=== PATIENT | male | born 1990 | race African-American/Black ===

== ENCOUNTER 2016-06-19 13:39 | Emergency (ER) | payer MEDICAID, SELFPAY ==
[~2016-06-19] VITALS: Ht 165.1 cm; Wt 68.0 kg
[~2016-06-19 13:39] MED LIST: IBUPROFEN600 MG ORAL; NORCO 5-325 TA1 EACH ORAL
[2016-06-19 14:30] VITALS: BP 112/68
[2016-06-19 14:55] VITALS: BP 112/68
[2016-06-19] MEDS ORDERED: CORTISPORIN EAR10 ML LEFT EAR (14:58)
--- NOTE | 2016-06-19 21:23 | Emergency Room Report ---
History of Present Illness General Chief Complaint: Earache Source: Patient Present Illness HPI The patient is a 26 old male presenting with left ear pain which began 3 days prior. The patient states that he was using peroxide to clean out his ears and noticed significant burning to the left ear. The patient describes the pain as a 9/10 dull ache and radiates to the left face. The pain is worse with touch and movement. The patient denies any fever or chills and denies N, V, dizziness , blurred vision Allergies: Coded Allergies: PENICILLINS (Verified Allergy, 07/19/13) Patient History Past Medical History: see triage record Pertinent Family History: none Reviewed Nursing Documentation: PMH: Agreed, PSxH: Agreed Nursing Documentation-PMH Hx Asthma: Yes Review of Systems All Other Systems: negative except mentioned in HPI Physical Exam Vital Signs Date Time Temp Pulse Resp B/P Pulse Ox O2 Delivery O2 Flow Rate FiO2 06/19/16 13:49 98.8 74 16 112/68 99 Room Air Sp02 EP Interpretation: reviewed, normal General Appearance: no apparent distress, alert, GCS 15, non-toxic Head: normocephalic, atraumatic Eyes: bilateral eye PERRL, bilateral eye normal inspection ENT: hearing grossly normal, normal pharynx, no angioedema, normal voice, uvula midline, moist mucus membranes, other - L ear: EAC is erythematous with white DC Neck: full range of motion, supple/symm/no masses Respiratory: chest non-tender, lungs clear, normal breath sounds, speaking full sentences Cardiovascular #1: regular rate, rhythm, no edema Musculoskeletal: back normal, gait/station normal, normal range of motion, non- tender Neurologic: alert, oriented x3, responsive, motor strength/tone normal, sensory intact, speech normal Psychiatric: judgement/insight normal, memory normal, mood/affect normal, no suicidal/homicidal ideation Skin: normal color, no rash, warm/dry, well hydrated Medical Decision Making PA Attestation Dr. White is my supervising physician. Patient management was discussed with my supervising physician Diagnostic Impression: Primary Impression: Otitis externa of left ear ER Course The patient is a 26 old male presenting with left ear pain which began 3 days prior. Differential diagnosis include but not limited to otitis externa, otitis media, mastoiditis, sinusitis, pharyngitis PE: Vitals WNL. L ear: EAC is erythematous with white DC. Otherwise HEENT exam is unremarkable. Lungs are clear to auscultation bilaterally The patient be discharged home with a prescription for Cortisporin and is given ER precautions. The patient will follow up with primary care physician Last Vital Signs Date Time Temp Pulse Resp B/P Pulse Ox O2 Delivery O2 Flow Rate FiO2 06/19/16 14:55 98.8 16 112/68 99 Room Air 06/19/16 14:30 74 Status: improved Disposition: HOME, SELF-CARE Condition: Improved Scripts Neomycin/Polymyxin B Sulf/Hc* (CORTISPORIN EAR SOLUTION*) 10 Ml Solution 4 DROP LEFT EAR QID, #10 ML 0 Refills Prov: FRANCISCO STEWARD 06/19/16 Patient Instructions: Otitis Externa Additional Instructions: I discussed my findings with the patient. All questions and concerns have been answered. Treatment and medication compliance have been addressed. I advised the patient that they need to follow up with PMD in 3-5 days. Return to ED if symptoms worsen, new symptoms arise, or if needed for any reason. Patient verbalized understanding of discharge instructions. FRANCISCO STEWARD Jun 19, 2016 21:23
== END 2016-06-19 14:55 | disposition home or self-care (01) ==
LOC: EMR 14:16
DX: H60.92 Unspecified otitis externa, left ear (principal); H92.02 Otalgia, left ear; Z88.0 Allergy status to penicillin; J45.909 Unspecified asthma, uncomplicated
CPT/HCPCS: 99282

== ENCOUNTER 2016-08-27 03:18 | Emergency (ER) | payer MEDICAID ==
[~2016-08-27] VITALS: Ht 165.1 cm; Wt 68.0 kg
[~2016-08-27 03:18] MED LIST changes: +CORTISPORIN EAR10 ML LEFT EAR
[2016-08-27] MEDS ORDERED: Famotidine 20 MG/ 2ML VIAL IVP ONE (03:45)
[2016-08-27 04:13] LABS: BASOPHILS % (AUTO) 1.5 % (0.0-2.0); LYMPHOCYTES % (AUTO) 11.4 % (20.0-45.0); MEAN CORPUSCULAR HEMOGLOBIN 29.3 PG (27.0-31.0); MEAN CORPUSCULAR HGB CONC 32.4 G/DL (32.0-36.0); MEAN CORPUSCULAR VOLUME 90 FL (80-99); MONOCYTES % (AUTO) 2.8 % (1.0-10.0); NEUTROPHILS % (AUTO) 84.3 % (45.0-75.0); PLATELET COUNT 222 K/UL (150-450); RED BLOOD COUNT 5.05 M/UL (4.70-6.10); RED CELL DISTRIBUTION WIDTH 14.2 % (11.6-14.8); WHITE BLOOD COUNT 11.8 K/UL (4.8-10.8)
[2016-08-27 04:33] LABS: ALANINE AMINOTRANSFERASE 17 U/L (3-41); ALBUMIN/GLOBULIN RATIO 1.7 (1.0-2.7); ANION GAP 17 (5-15); ASPARTATE AMINO TRANSFERASE 27 U/L (5-40); CALCIUM 9.6 mg/dL (8.6-10.2); CARBON DIOXIDE 23 mEQ/L (20-30); CHLORIDE 101 mEQ/L (98-107); CREATININE 1.1 mg/dL (0.7-1.2); GLOMERULAR FILTRATION RATE > 60 mL/min (>60); HEMOLYSIS 22; LIPASE 10 U/L (< 60); POTASSIUM 4.5 mEQ/L (3.4-4.9); SODIUM 141 mEQ/L (135-145); TOTAL PROTEIN 7.2 g/dL (6.6-8.7)
--- NOTE | 2016-08-27 05:35 | Emergency Room Report ---
History of Present Illness General Chief Complaint: Nausea, Vomiting, and Diarrhea Source: Patient Present Illness HPI 26YOM with abdominal cramping, nausea/vomiting, and diarrhea - occurred 4 hours after eating take-out chicken bbq. Denies other medical problems, previous abd surgery, urinary complaints. Allergies: Coded Allergies: PENICILLINS (Verified Allergy, 07/19/13) Patient History Past Medical History: none Past Surgical History: none Pertinent Family History: none Social History: Denies: alcohol use, drug use, smoking Immunizations: UTD Reviewed Nursing Documentation: PMH: Agreed, PSxH: Agreed Nursing Documentation-PMH Hx Asthma: Yes Review of Systems All Other Systems: negative except mentioned in HPI Physical Exam Vital Signs Date Time Temp Pulse Resp B/P Pulse Ox O2 Delivery O2 Flow Rate FiO2 08/27/16 03:21 97.9 71 20 124/83 99 Room Air Sp02 EP Interpretation: reviewed, normal General Appearance: normal inspection, well appearing, no apparent distress, alert, non-toxic Head: normocephalic, atraumatic Eyes: bilateral eye EOMI, bilateral eye PERRL ENT: normal ENT inspection, hearing grossly normal, normal voice Neck: normal inspection, full range of motion, supple, no bony tend Respiratory: normal inspection, lungs clear, normal breath sounds, no respiratory distress, no retraction, no wheezing Cardiovascular #1: regular rate, rhythm, no edema Gastrointestinal: normal inspection, normal bowel sounds, non tender, soft, no guarding, no hernia Genitourinary: no CVA tenderness Musculoskeletal: normal inspection, back normal, normal range of motion, Tee' s Sign negative Neurologic: normal inspection, alert, oriented x3, responsive, chief compliance officer III-XII nml as tested, speech normal Psychiatric: normal inspection, judgement/insight normal, mood/affect normal Skin: normal inspection, normal color, no rash Medical Decision Making Diagnostic Impression: Primary Impression: Nausea, vomiting, and diarrhea ER Course Labs: Mild leuks 11k, likely reactionary from vomiting No other metabolic abnormality Feels much better Tolerating PO Rx pepcid, zofran PRN nausea BRAT diet Abd soft NT/ND on serial exam DC home Last Vital Signs Date Time Temp Pulse Resp B/P Pulse Ox O2 Delivery O2 Flow Rate FiO2 08/27/16 03:21 97.9 71 20 124/83 99 Room Air Status: improved Disposition: HOME, SELF-CARE Scripts Ondansetron Odt* (ZOFRAN ODT*) 4 Mg Tab.rapdis 4 MG ORAL Q6H Y for Nausea & Vomiting, #20 TAB 0 Refills Prov: KIM GONZALEZ M.D. 08/27/16 Famotidine (PEPCID) 20 Mg Tablet 20 MG ORAL BID for 7 Days, #14 TAB 0 Refills Prov: KIM GONZALEZ M.D. 08/27/16 Referrals: [facility],REFERRING (PCP) KIM GONZALEZ M.D. Aug 27, 2016 05:35
[2016-08-27] MEDS ORDERED: PEPCID20 MG ORAL (05:37)
[2016-08-27] MEDS ORDERED: ZOFRAN ODT4 MG ORAL (05:37)
[2016-08-27] MEDS ORDERED: Metoclopramide 10mg/2ml Inj IVP ONE (05:45)
[2016-08-27 05:48] VITALS: BP 137/88
[2016-08-27 05:50] VITALS: BP 137/88
[2016-08-27 06:09] LABS: APPEARANCE,URINE CLEAR; KETONES,URINE 3+ (NEGATIVE); LEUKOCYTE ESTERASE ,URINE 1+ (NEGATIVE); NITRITE,URINE NEGATIVE (NEGATIVE); PH,URINE 9 (4.5-8.0); PROTEIN,URINE 2+ (NEGATIVE); UROBILINOGEN,URINE NORMAL MG/DL (0.0-1.0)
[2016-08-27 06:34] LABS: BACTERIA,URINE FEW /HPF; MUCUS,URINE MODERATE /LPF (NONE/OCC); RBC,URINE 0-2 /HPF (0 - 0); SQUAMOUS EPITHELIAL CELL,UR FEW /LPF (NONE/OCC)
== END 2016-08-27 05:50 | disposition home or self-care (01) ==
LOC: EMR 03:36
DX: R11.2 Nausea with vomiting, unspecified (principal); R19.7 Diarrhea, unspecified; J45.909 Unspecified asthma, uncomplicated; Z88.0 Allergy status to penicillin
CPT/HCPCS: 36415; 80053; 81003; 83690; 85025; 96374; 96375; 99284; J2405; J2765; S0028

== ENCOUNTER 2018-01-04 21:25 | Emergency (ER) | payer SELFPAY ==
[~2018-01-04] VITALS: Ht 165.1 cm; Wt 65.8 kg
[~2018-01-04 21:25] MED LIST changes: +PEPCID20 MG ORAL; +ZOFRAN ODT4 MG ORAL
--- NOTE | 2018-01-04 21:52 | Emergency Room Report ---
History of Present Illness General Chief Complaint: Skin Rash/Abscess Source: Patient Present Illness HPI Patient present with complaints of redness and swelling to the left facial area feels that it was possibly a spider bite Denies any fevers or chills denies any trismus He has increased discomfort with palpation He reports that he had waited for a wong to appear however never did With the increased size and discomfort presents to the ER Denies any posterior neck pain Allergies: Coded Allergies: BANANA (Verified Allergy, Unknown, 01/04/18) PENICILLINS (Verified Allergy, Unknown, 01/04/18) ASPIRIN (Verified Adverse Reaction, Unknown, 01/04/18) stomach pain Patient History Past Medical History: see triage record Pertinent Family History: none Reviewed Nursing Documentation: PMH: Agreed; PSxH: Agreed Nursing Documentation-PMH Past Medical History: No History, Except For Hx Asthma: Yes Review of Systems All Other Systems: negative except mentioned in HPI Physical Exam Vital Signs Date Time Temp Pulse Resp B/P (MAP) Pulse Ox O2 Delivery O2 Flow Rate FiO2 01/04/18 21:36 98.0 94 16 119/73 96 Room Air 98.1 Sp02 EP Interpretation: reviewed, normal General Appearance: well appearing, no apparent distress Head: normocephalic, atraumatic Eyes: bilateral eye PERRL, bilateral eye EOMI ENT: other - Possibly 1 x 1 cm pustule in the left upper axillary area, there is some fluctuance palpable, mild erythema, I cannot palpate the area inside the mouth does not appear to have any streaking or flaring Neck: full range of motion, supple Respiratory: chest non-tender, lungs clear Cardiovascular #1: regular rate, rhythm Gastrointestinal: non tender Musculoskeletal: normal inspection Neurologic: alert, oriented x3 Skin: other - As above Lymphatic: no adenopathy Procedures Incision and Drainage Incision and Drainage : Consent: Verbal Site: Left upper maxillary Blade Size: 11 I & D Procedure: betadine prep, sterile drapes applied, sterile dressing applied, gauze wick placed Wound Location: face Wound Length (cm): 0 Irrigated w/ Saline (ccs): 200 Anesthesia: Lidocaine w/ Epi Volume Anesthetic (ccs): 1 Splint Applied?: No Patient Tolerated: Well Complications: None Progress At the apex of the pustule incision was made, large amount of pus released, area was irrigated, sterile dressing applied Medical Decision Making Diagnostic Impression: Primary Impression: Encounter for incision and drainage procedure Additional Impression: Abscess ER Course Given the area and the patient's examination It appeared that the area does require incision and drainage Area cleansed and prepped procedure note as above patient tolerated well Small packing was also applied to keep the area open for the next one to 2 days And patient will have close outpatient follow-up Last Vital Signs Date Time Temp Pulse Resp B/P (MAP) Pulse Ox O2 Delivery O2 Flow Rate FiO2 01/04/18 21:36 98.0 94 16 119/73 96 Room Air 98.1 Status: improved Disposition: HOME, SELF-CARE Condition: Improved Scripts Albuterol Sulfate* (ALBUTEROL SULFATE MDI*) 8.5 Gm Hfa.aer.ad 2 PUFF INH Q6H, #1 EA 0 Refills Prov: Jessy Simpson DO 01/04/18 Cephalexin* (KEFLEX*) 500 Mg Capsule 500 MG ORAL EVERY 6 HOURS for 7 Days, CAP Prov: Jessy Simpson DO 01/04/18 Additional Instructions: Patient is provided with the discharge instructions notified to follow up with primary doctor in the next 2-3 days otherwise return to the er with any worsening symptoms. Please note that this report is being documented using [employer] technology. This can lead to erroneous entry secondary to incorrect interpretation by the dictating instrument. Jessy Simpson DO Jan 04, 2018 21:52
[2018-01-04] MEDS ORDERED: Lidocaine 1% 10mg/ml/Epi 0.005mg/ml 30ml vial INJ ONE (22:00)
[2018-01-04] MEDS ORDERED: Bacitracin Oint UD TOPIC ONE ×2 (22:02→22:15)
[2018-01-04] MEDS ORDERED: CEPHALEXIN500 MG ORAL (22:05)
[2018-01-04] MEDS ORDERED: ALBUTEROL SULF8.5 GM INH (22:05)
[2018-01-04 22:09] VITALS: BP 119/73
[2018-01-04 22:14] VITALS: BP 119/73
== END 2018-01-04 22:10 | disposition home or self-care (01) ==
LOC: EMR 22:00
DX: M27.2 Inflammatory conditions of jaws (principal); J45.909 Unspecified asthma, uncomplicated; Z88.0 Allergy status to penicillin; Z88.6 Allergy status to analgesic agent
CPT/HCPCS: 10060; 99284

== ENCOUNTER 2019-04-08 11:02 | Emergency (ER) | payer SELFPAY ==
[~2019-04-08] VITALS: Ht 165.1 cm; Wt 68.0 kg
[~2019-04-08 11:02] MED LIST changes: +ALBUTEROL SULF8.5 GM INH; +CEPHALEXIN500 MG ORAL
[2019-04-08] MEDS ORDERED: Mylanta II UD 30ml ORAL ONE (11:15)
[2019-04-08] MEDS ORDERED: Lidocaine 2% Visc 15ml soln ORAL ONE (11:15)
[2019-04-08] MEDS ORDERED: DiphenhydrAMINE 50mg/ml Inj IVP ONE (11:15)
--- NOTE | 2019-04-08 11:19 | NUR ---
ED Nurse Note: PT WALKED IN TO ER TODAY FROM HOME. AOX4. PT C/O RIGHT UPPER QUADRANT ABDOMINAL PAIN, 10/10, NAUSEA, AND MULTIPLE EPISODES OF VOMITING X 2-3 DAYS AGO. PT STATES HE HAD ONE EPISODE OF DIARRHEA X THIS AM. ABDOMEN NONDISTENDED AND NONTENDER TO PALPATION. ACTIVE BOWEL SOUNDS IN ALL QUADRANTS. NO ACTIVE VOMITING AT BEDSIDE.
[2019-04-08 11:21] VITALS: BP 155/103
[2019-04-08] MEDS ORDERED: Morphine Sulfate 4mg/ml Inj (IV USE ONLY) IVP ONE ×2 (11:30→13:45)
[2019-04-08 12:06] LABS: BASOPHILS % (AUTO) 1.7 % (0.0-2.0); HEMATOCRIT 35.3 % (42.0-52.0); HEMOGLOBIN 11.1 G/DL (14.2-18.0); LYMPHOCYTES % (AUTO) 23.1 % (20.0-45.0); MEAN CORPUSCULAR VOLUME 82 FL (80-99); MONOCYTES % (AUTO) 4.6 % (1.0-10.0); NEUTROPHILS % (AUTO) 68.7 % (45.0-75.0); PLATELET COUNT 250 K/UL (150-450); RED BLOOD COUNT 4.33 M/UL (4.70-6.10); RED CELL DISTRIBUTION WIDTH 19.3 % (11.6-14.8); WHITE BLOOD COUNT 7.6 K/UL (4.8-10.8)
[2019-04-08 12:23] LABS: ANION GAP 14 mmol/L (5-15); BLOOD UREA NITROGEN 14 mg/dL (7-18); CALCIUM 8.3 MG/DL (8.5-10.1); CARBON DIOXIDE 23 MMOL/L (21-32); CHLORIDE 109 MMOL/L (98-107); POTASSIUM 3.3 MMOL/L (3.5-5.1); SODIUM 146 MMOL/L (136-145)
[2019-04-08 12:28] LABS: ALANINE AMINOTRANSFERASE 69 U/L (12-78); ALBUMIN 3.3 G/DL (3.4-5.0); ALBUMIN/GLOBULIN RATIO 1.1 (1.0-2.7); ALKALINE PHOSPHATASE 64 U/L (46-116); ASPARTATE AMINO TRANSFERASE 73 U/L (15-37); BILIRUBIN,TOTAL 0.3 MG/DL (0.2-1.0)
--- NOTE | 2019-04-08 12:41 | Emergency Room Report ---
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 Allergies: Coded Allergies: BANANA (Verified Allergy, Unknown, 01/04/18) PENICILLINS (Verified Allergy, Unknown, 01/04/18) ASPIRIN (Verified Adverse Reaction, Unknown, 01/04/18) stomach pain Patient History Past Medical History: see triage record Social History: Reports: smoking, alcohol use Reviewed Nursing Documentation: PMH: Agreed; PSxH: Agreed Nursing Documentation-PMH Past Medical History: No History, Except For Hx Asthma: Yes Review of Systems All Other Systems: negative except mentioned in HPI Physical Exam Vital Signs Date Time Temp Pulse Resp B/P (MAP) Pulse Ox O2 Delivery O2 Flow Rate FiO2 04/08/19 11:15 97.0 78 14 155/103 (120) 98 Room Air Sp02 EP Interpretation: reviewed, normal General Appearance: well appearing, no apparent distress, alert Head: normocephalic, atraumatic Eyes: bilateral eye PERRL, bilateral eye EOMI ENT: uvula midline, moist mucus membranes Neck: supple, thyroid normal, supple/symm/no masses Respiratory: lungs clear, no respiratory distress, no retraction, no accessory muscle use Cardiovascular #1: normal peripheral pulses, regular rate, rhythm, no edema, no gallop, no murmur Gastrointestinal: soft, no guarding, no rebound, tenderness - Mid epigastric region Musculoskeletal: normal inspection Neurologic: alert, oriented x3 Psychiatric: mood/affect normal Skin: no rash, warm/dry Medical Decision Making Diagnostic Impression: Primary Impression: Pancreatitis, alcoholic, acute Qualified Codes: K85.20 - Alcohol induced acute pancreatitis without necrosis or infection ER Course 29-year-old male presents with recurrent pancreatitis after drinking, patient with mild epigastric pain, patient is requesting morphine by name, patient in no acute distress. Repeat abdominal exam, abdomen soft, nontender no evidence of Annamaria or Cruz' s Patient's pain is well controlled will provide patient with outpatient medications, patient counseled patient to not drink alcohol Cures Report Ran Patient tolerated PO Disposition home with return precautions Laboratory Tests Test 04/08/19 11:29 White Blood Count 7.6 K/UL (4.8-10.8) Red Blood Count 4.33 M/UL (4.70-6.10) L Hemoglobin 11.1 G/DL (14.2-18.0) L Hematocrit 35.3 % (42.0-52.0) L Mean Corpuscular Volume 82 FL (80-99) Mean Corpuscular Hemoglobin 25.6 PG (27.0-31.0) L Mean Corpuscular Hemoglobin Concent 31.4 G/DL (32.0-36.0) L Red Cell Distribution Width 19.3 % (11.6-14.8) H Platelet Count 250 K/UL (150-450) Mean Platelet Volume 7.9 FL (6.5-10.1) Neutrophils (%) (Auto) 68.7 % (45.0-75.0) Lymphocytes (%) (Auto) 23.1 % (20.0-45.0) Monocytes (%) (Auto) 4.6 % (1.0-10.0) Eosinophils (%) (Auto) 2.0 % (0.0-3.0) Basophils (%) (Auto) 1.7 % (0.0-2.0) Sodium Level 146 MMOL/L (136-145) H Potassium Level 3.3 MMOL/L (3.5-5.1) L Chloride Level 109 MMOL/L (98-107) H Carbon Dioxide Level 23 MMOL/L (21-32) Anion Gap 14 mmol/L (5-15) Blood Urea Nitrogen 14 mg/dL (7-18) Creatinine 1.0 MG/DL (0.55-1.30) Estimate Glomerular Filtration Rate > 60 mL/min (>60) Glucose Level 121 MG/DL (74-106) H Calcium Level 8.3 MG/DL (8.5-10.1) L Total Bilirubin 0.3 MG/DL (0.2-1.0) Aspartate Amino Transferase (AST) 73 U/L (15-37) H Alanine Aminotransferase (ALT) 69 U/L (12-78) Alkaline Phosphatase 64 U/L (46-116) Total Protein 6.3 G/DL (6.4-8.2) L Albumin 3.3 G/DL (3.4-5.0) L Globulin 3.0 g/dL Albumin/Globulin Ratio 1.1 (1.0-2.7) Lipase 798 U/L (73-393) H Last Vital Signs Date Time Temp Pulse Resp B/P (MAP) Pulse Ox O2 Delivery O2 Flow Rate FiO2 04/08/19 11:21 98.2 65 16 155/103 100 Room Air Disposition: HOME, SELF-CARE Condition: Stable Scripts Albuterol Sulfate* (ALBUTEROL SULFATE MDI*) 8.5 Gm Hfa.aer.ad 2 PUFF INH Q4H PRN for cough/wheezing, #1 EA 0 Refills Prov: Jairo Tarango MD 04/08/19 Referrals: [facility] Dann Schmidt. [facility] Patient Instructions: Acute Pancreatitis, [id number] Additional Instructions: The patient was provided with discharge instructions, notified to follow-up with a primary care doctor and or specialist in the next 24-48 hours, and to return to the ED if they have worsening of their symptoms. Please note that this report is being documented using [employer] technology. This can lead to erroneous entry secondary to incorrect interpretation by the dictating instrument. FOLLOW-UP WITH GASTROENTEROLOGY Jairo Tarango MD Apr 08, 2019 12:41
[2019-04-08 12:57] VITALS: BP 138/82
[2019-04-08] MEDS ORDERED: NORCO 5-325 TA1 EACH ORAL ×2 (13:38→14:43)
[2019-04-08] MEDS ORDERED: ZOFRAN4 M3 ORAL (13:38)
[2019-04-08] MEDS ORDERED: ALBUTEROL SULF8.5 GM INH (13:56)
[2019-04-08] MEDS ORDERED: ZOFRAN ODT8 MG ORAL (14:43)
[2019-04-08 15:11] LABS: APPEARANCE,URINE CLEAR; BILIRUBIN, URINE NEGATIVE (NEGATIVE); COLOR,URINE PALE YELLOW; GLUCOSE, URINE (UA) NEGATIVE (NEGATIVE); KETONES,URINE NEGATIVE (NEGATIVE); LEUKOCYTE ESTERASE ,URINE NEGATIVE (NEGATIVE); NITRITE,URINE NEGATIVE (NEGATIVE); PH,URINE 6.5 (4.5-8.0); PROTEIN,URINE NEGATIVE (NEGATIVE); UROBILINOGEN,URINE NORMAL MG/DL (0.0-1.0)
--- NOTE | 2019-04-08 15:37 | NUR ---
ED Nurse Note: PT LAYING PEACEFULLY IN BED IN NAD. AOX4. PRESCRIPTIONS AND DISCHARGE PAPERWORK EXPLAINED TO PT. PT VERBALIZES UNDERSTANDING AND ALL QUESTIONS ANSWERED. PRESCRIPTIONS AND DISCHARGE PAPERWORK GIVEN TO PT, IV AND ID WRISTBAND REMOVED. PT WALKED OUT OF ER WITH STEADY GAIT AND ALL BELONGINGS.
[2019-04-08 15:38] VITALS: BP 142/78
== END 2019-04-08 15:39 | disposition home or self-care (01) ==
LOC: EMR 12:05
DX: K85.20 Alcohol induced acute pancreatitis without necrosis or infection (principal); J45.909 Unspecified asthma, uncomplicated; F17.200 Nicotine dependence, unspecified, uncomplicated; Z88.0 Allergy status to penicillin; Z88.6 Allergy status to analgesic agent; Z91.018 Allergy to other foods
CPT/HCPCS: 36415; 80053; 80307; 81003; 83690; 85025; 96361; 96374; 96375; 96376; 99284; J1200; J2270; J2405; S0028; J7030

== ENCOUNTER 2019-04-08 19:02 | Inpatient (IN) | payer SELFPAY ==
[~2019-04-08] VITALS: Ht 165.1 cm; Wt 67.8 kg
[~2019-04-08 19:02] MED LIST changes: +ZOFRAN ODT8 MG ORAL; +ZOFRAN4 M3 ORAL
[2019-04-08 19:10] VITALS: BP 145/87
--- NOTE | 2019-04-08 19:10 | NUR ---
ED Nurse Note: Patient walked in to ER due to lower abd pain, pt states he was in the ed earlier for abd pain and was discharged but no improvement and sx worsen. Pt has history of pancreatitis. Alert and oriented, verbally responsive. No SOB. Breathing even and unlabored. afebrile. VSS.
[2019-04-08] MEDS ORDERED: Morphine Sulfate 4mg/ml Inj (IV USE ONLY) IVP ONE ×2 (19:30→22:15)
[2019-04-08 19:44] LABS: BASOPHILS % (AUTO) 1.7 % (0.0-2.0); EOSINOPHILS % (AUTO) 1.7 % (0.0-3.0); HEMOGLOBIN 11.7 G/DL (14.2-18.0); LYMPHOCYTES % (AUTO) 13.4 % (20.0-45.0); MEAN CORPUSCULAR VOLUME 82 FL (80-99); MONOCYTES % (AUTO) 4.4 % (1.0-10.0); NEUTROPHILS % (AUTO) 78.8 % (45.0-75.0); PLATELET COUNT 247 K/UL (150-450); RED BLOOD COUNT 4.65 M/UL (4.70-6.10); WHITE BLOOD COUNT 12.6 K/UL (4.8-10.8)
[2019-04-08 19:53] LABS: ANION GAP 13 mmol/L (5-15); BLOOD UREA NITROGEN 11 mg/dL (7-18); CALCIUM 8.3 MG/DL (8.5-10.1); CARBON DIOXIDE 26 MMOL/L (21-32); CHLORIDE 107 MMOL/L (98-107); CREATININE 1.2 MG/DL (0.55-1.30); POTASSIUM 3.5 MMOL/L (3.5-5.1); SODIUM 145 MMOL/L (136-145)
[2019-04-08 19:57] LABS: ALANINE AMINOTRANSFERASE 64 U/L (12-78); ALBUMIN 3.3 G/DL (3.4-5.0); ALBUMIN/GLOBULIN RATIO 1.1 (1.0-2.7); ALKALINE PHOSPHATASE 69 U/L (46-116); ASPARTATE AMINO TRANSFERASE 52 U/L (15-37); BILIRUBIN,TOTAL 0.5 MG/DL (0.2-1.0)
[2019-04-08] MEDS ORDERED: Isovue-300 100ml vial INJ PRN (20:15)
--- NOTE | 2019-04-08 20:28 | NUR ---
ED Nurse Note: Pt taken for CT.
--- NOTE | 2019-04-08 20:50 | NUR ---
ED Nurse Note: Pt came back from Ct.
--- NOTE | 2019-04-08 20:54 | Emergency Room Report ---
History of Present Illness General Chief Complaint: Abdominal Pain Source: Patient, Medical Record Present Illness HPI 29-year-old male presents ED for evaluation. Complaining of abdominal pain with nausea and vomiting. States that he was seen here earlier today. Was told he had pancreatitis. States he was given medications but states that after he was discharged the pain came back states he has been vomiting. States he is unable to keep down his medications. Pain is epigastric, sharp, 10 out of 10, nonradiating. Denies fevers or chills. Denies chest pain. No other aggravating relieving factors. Denies any other associated symptoms Allergies: Coded Allergies: BANANA (Verified Allergy, Unknown, 01/04/18) PENICILLINS (Verified Allergy, Unknown, 01/04/18) ASPIRIN (Verified Adverse Reaction, Unknown, 01/04/18) stomach pain Patient History Past Medical History: asthma Past Surgical History: none Pertinent Family History: none Social History: Denies: smoking, alcohol use, drug use Immunizations: UTD Reviewed Nursing Documentation: PMH: Agreed; PSxH: Agreed Nursing Documentation-PMH Past Medical History: No History, Except For Hx Asthma: Yes Review of Systems All Other Systems: negative except mentioned in HPI Physical Exam Vital Signs Date Time Temp Pulse Resp B/P (MAP) Pulse Ox O2 Delivery O2 Flow Rate FiO2 04/08/19 19:07 99.0 89 18 165/102 (123) 98 Room Air Sp02 EP Interpretation: reviewed, normal General Appearance: no apparent distress, alert, GCS 15, non-toxic Head: normocephalic, atraumatic Eyes: bilateral eye normal inspection, bilateral eye PERRL ENT: hearing grossly normal, normal pharynx, no angioedema, normal voice Neck: full range of motion, supple/symm/no masses Respiratory: chest non-tender, lungs clear, normal breath sounds, speaking full sentences Cardiovascular #1: regular rate, rhythm, no edema Cardiovascular #2: 2+ carotid (R), 2+ carotid (L), 2+ radial (R), 2+ radial (L) , 2+ dorsalis pedis (R), 2+ dorsalis pedis (L) Gastrointestinal: normal bowel sounds, soft, non-distended, no guarding, no rebound, tenderness - epiagastric Rectal: deferred Genitourinary: normal inspection, no CVA tenderness Musculoskeletal: back normal, gait/station normal, normal range of motion, non- tender Neurologic: alert, oriented x3, responsive, motor strength/tone normal, sensory intact, speech normal Psychiatric: judgement/insight normal, memory normal, mood/affect normal, no suicidal/homicidal ideation Reflexes: 3+ bicep (R), 3+ bicep (L), 3+ tricep (R), 3+ tricep (L), 3+ knee (R) , 3+ knee (L) Skin: no rash Lymphatic: no adenopathy Medical Decision Making Diagnostic Impression: Primary Impression: Pancreatitis Qualified Codes: K85.20 - Alcohol induced acute pancreatitis without necrosis or infection ER Course Hospital Course 29 yo M presents to ED c/o abd pain and vomiting. Differential diagnoses include: BPH, cystitis, pyelonephritis, kidney stone Clinical course Patient placed on stretcher. equipment monitor phototypesetting. After initial history and physical I ordered labs, IV fluids, UA, pain medication and CT scan Labs - noted leukocytosis, Hb/Hct stable. electrolytes ok. Lipase > 800, AST/ ALT elevated. CT abdomen and pelvis - pancreatitis Patient was seen here earlier today. Lipase has since increased. Patient continues to have pain and vomiting. I do not believe patient can be discharged at this time. Case discussed with Dr. Davis and he agreed to accept the patient to his service for further care and support I feel this is a highly complex case requiring extensive working including EKG/ Rhythm strip, Xray/CT/US, Blood/urine lab work, repeat exams while in ED, and administration of strong opiates/narcotics for pain control, admission to hospital or close patient follow up. Diagnosis - acute pancreatitis Patient admitted to floor in serious condition Labs Test 04/08/19 19:30 04/08/19 20:30 White Blood Count 12.6 K/UL (4.8-10.8) Red Blood Count 4.65 M/UL (4.70-6.10) Hemoglobin 11.7 G/DL (14.2-18.0) Hematocrit 38.0 % (42.0-52.0) Mean Corpuscular Volume 82 FL (80-99) Mean Corpuscular Hemoglobin 25.1 PG (27.0-31.0) Mean Corpuscular Hemoglobin Concent 30.7 G/DL (32.0-36.0) Red Cell Distribution Width 18.0 % (11.6-14.8) Platelet Count 247 K/UL (150-450) Mean Platelet Volume 7.9 FL (6.5-10.1) Neutrophils (%) (Auto) 78.8 % (45.0-75.0) Lymphocytes (%) (Auto) 13.4 % (20.0-45.0) Monocytes (%) (Auto) 4.4 % (1.0-10.0) Eosinophils (%) (Auto) 1.7 % (0.0-3.0) Basophils (%) (Auto) 1.7 % (0.0-2.0) Sodium Level 145 MMOL/L (136-145) Potassium Level 3.5 MMOL/L (3.5-5.1) Chloride Level 107 MMOL/L (98-107) Carbon Dioxide Level 26 MMOL/L (21-32) Anion Gap 13 mmol/L (5-15) Blood Urea Nitrogen 11 mg/dL (7-18) Creatinine 1.2 MG/DL (0.55-1.30) Estimat Glomerular Filtration Rate > 60 mL/min (>60) Glucose Level 118 MG/DL (74-106) Calcium Level 8.3 MG/DL (8.5-10.1) Total Bilirubin 0.5 MG/DL (0.2-1.0) Aspartate Amino Transf (AST/SGOT) 52 U/L (15-37) Alanine Aminotransferase (ALT/SGPT) 64 U/L (12-78) Alkaline Phosphatase 69 U/L (46-116) Total Protein 6.4 G/DL (6.4-8.2) Albumin 3.3 G/DL (3.4-5.0) Globulin 3.1 g/dL Albumin/Globulin Ratio 1.1 (1.0-2.7) Lipase 868 U/L (73-393) Serum Alcohol 20 mg/dL Urine Opiates Screen Positive (NEGATIVE) Urine Barbiturates Screen Negative (NEGATIVE) Phencyclidine (PCP) Screen Negative (NEGATIVE) Urine Amphetamines Screen Negative (NEGATIVE) Urine Benzodiazepines Screen Negative (NEGATIVE) Urine Cocaine Screen Negative (NEGATIVE) Urine Marijuana (THC) Screen Positive (NEGATIVE) CT/MRI/US Diagnostic Results CT/MRI/US Diagnostic Results : Imaging Test Ordered: CT A/P Impression Lower chest:: Unremarkable. Hepatobiliary:: Unremarkable. Genitourinary:: Unremarkable. Adrenals:: Unremarkable. Pancreas:: Pancreas is mildly enlarged demonstrates patchy hypoattenuation. Gastrointestinal:: Underdistention of the colon limits evaluation. No evidence of obstruction. Appendix is unremarkable. Stomach is distended with contents. Spleen: : Unremarkable. Peritoneum:: Moderate volume ascites. There is peripancreatic fat stranding. Bones and soft tissues:: Unremarkable. Last Vital Signs Date Time Temp Pulse Resp B/P (MAP) Pulse Ox O2 Delivery O2 Flow Rate FiO2 04/08/19 20:04 98.9 04/08/19 19:10 89 18 Room Air 04/08/19 19:10 145/87 98 Status: improved Disposition: ADMITTED INPATIENT Condition: Serious Red Hassan MD Apr 08, 2019 20:54
[2019-04-08 21:13] VITALS: BP 135/77
--- NOTE | 2019-04-08 21:51 | Diagnostic Imaging Report ---
CT ABDOMEN AND PELVIS WITH CONTRAST INDICATION: Abdominal pain TECHNIQUE: Continuous helical transaxial imaging of the abdomen and pelvis was obtained from the lung bases to the pubic symphysis during intravenous contrast administration. Coronal 2-D reformats were also obtained. Study obtained in a Siemens sensation [address] Automatic Exposure Control was utilized. Total Dose length Product (DLP): 684.[address] Dose Index Volume (CTDIvol): 12.4 mGy COMPARISON: CT abdomen and pelvis dated 05/26/2009 FINDINGS: Lower chest:: Unremarkable. Hepatobiliary:: Unremarkable. Genitourinary:: Unremarkable. Adrenals:: Unremarkable. Pancreas:: Pancreas is mildly enlarged demonstrates patchy hypoattenuation. Gastrointestinal:: Underdistention of the colon limits evaluation. No evidence of obstruction. Appendix is unremarkable. Stomach is distended with contents. Spleen: : Unremarkable. Peritoneum:: Moderate volume ascites. There is peripancreatic fat stranding. Bones and soft tissues:: Unremarkable. IMPRESSION: 1. Mildly enlarged pancreas measuring patchy hypoattenuation suggesting edema. As acute pancreatitis is a clinical diagnosis, correlation with lipase and amylase is recommended. 2. Moderate abdominopelvic ascites. These findings are concordant with the [employer] preliminary report. The CT scanner at [facility] is accredited by the [employer] and the scans are performed using protocols designed to limit radiation exposure to as low as reasonably achievable to attain images of sufficient resolution adequate for diagnostic evaluation.
--- NOTE | 2019-04-08 22:57 | NUR ---
ED Nurse Note: Report given to Rosita SCHROEDER.
[2019-04-08 22:58] VITALS: BP 133/79
[2019-04-08 23:00] VITALS: BP 129/88
--- NOTE | 2019-04-08 23:01 | NUR ---
TRANSFER TO FLOOR: [facility]. Report given to Rosita SCHROEDER. Pt alert and oriented, verbally responisve. No SOB. Afebrile. IV line on left AC 20g patent and intact. No skin issues. VSS. Belongings list done. All belongings was given to the pt. Med recon done. Family member informed of the transfer.
--- NOTE | 2019-04-08 23:27 | NUR ---
NURSE NOTES: Received patient from ER via gurney, patient able to ambulate from rbreaux bridge to room bed, AOx4, VSS. Patient belongings checked, found marijuana in a green plastic container, charge nurse aware. Addendum: 04/09/19 at 0041 by Yessy Rodríguez RN blue plastic container, not green.
[2019-04-09] MEDS: Morphine Sulfate 4mg/ml Inj (IV USE ONLY) IVP PRN ×5 (00:10→21:07)
--- NOTE | 2019-04-09 00:38 | NUR ---
NURSE NOTES: patient surrendered blue plastic container with marijuana inside with no incident. hand silvering supervisor and security put container in security bag. JOSÉ MIGUEL number [id number]. Patient copy left in patient belongings bag as requested by patient.
--- NOTE | 2019-04-09 03:05 | NUR ---
NURSE NOTES: Patient able to walk to nurse's station asking for higher dosage of pain medication despite claiming 10/ pain. Dr Susan sun, patient re-educated about current pain medication dosage and frequency. Patient verbalized understanding and returned to room without incident. Addendum: 04/09/19 at 0306 by Yessy Rodríguez RN DISREGARD, wrong patient Addendum: 04/09/19 at 0322 by Yessy Rodríguez RN NOTE FOR [id number] Jamie Alfaro
--- NOTE | 2019-04-09 03:21 | NUR ---
NURSE NOTES: Patient able to walk to nurse's station asking for higher dosage of pain medication despite claiming 10/[address] Davis paged, patient re-educated about current pain medication dosage and frequency. Patient verbalized understanding and returned to room without incident.
[2019-04-09 04:00] VITALS: BP 131/85
--- NOTE | 2019-04-09 07:30 | NUR ---
NURSE NOTES: Received pt from DANIELA SCHROEDER. Pt is alert and orient x4. pt is in RA, No SOB or acute respiratory distress noted. pt has intact iv access LAC is SL. all needs attended, bed is locked and is in the lowest position, call light within easy reach, will continue to monitor.
--- NOTE | 2019-04-09 07:31 | NUR ---
HAND-OFF: Report given to ELDA Griffith.
[2019-04-09 08:00] VITALS: BP 170/98
[2019-04-09 08:01] LABS: BASOPHILS % (AUTO) 1.4 % (0.0-2.0); EOSINOPHILS % (AUTO) 5.3 % (0.0-3.0); HEMATOCRIT 37.9 % (42.0-52.0); HEMOGLOBIN 11.9 G/DL (14.2-18.0); LYMPHOCYTES % (AUTO) 17.6 % (20.0-45.0); MEAN CORPUSCULAR VOLUME 82 FL (80-99); MONOCYTES % (AUTO) 4.8 % (1.0-10.0); NEUTROPHILS % (AUTO) 70.8 % (45.0-75.0); PLATELET COUNT 238 K/UL (150-450); RED BLOOD COUNT 4.65 M/UL (4.70-6.10); RED CELL DISTRIBUTION WIDTH 19.7 % (11.6-14.8); WHITE BLOOD COUNT 12.3 K/UL (4.8-10.8)
[2019-04-09 08:44] LABS: ALANINE AMINOTRANSFERASE 52 U/L (12-78); ALBUMIN 3.3 G/DL (3.4-5.0); ALBUMIN/GLOBULIN RATIO 1.1 (1.0-2.7); ALKALINE PHOSPHATASE 74 U/L (46-116); ANION GAP 10 mmol/L (5-15); ASPARTATE AMINO TRANSFERASE 39 U/L (15-37); BILIRUBIN,TOTAL 1.1 MG/DL (0.2-1.0); BLOOD UREA NITROGEN 8 mg/dL (7-18); CALCIUM 8.7 MG/DL (8.5-10.1); CARBON DIOXIDE 28 MMOL/L (21-32); CHLORIDE 104 MMOL/L (98-107); CREATININE 1.2 MG/DL (0.55-1.30); POTASSIUM 3.3 MMOL/L (3.5-5.1); SODIUM 142 MMOL/L (136-145)
[2019-04-09 08:47] LABS: BILIRUBIN,DIRECT 0.3 MG/DL (0.0-0.3)
[2019-04-09] MEDS ORDERED: Hydromorphone 0.5mg/0.5ml inj IVP PRN (09:05)
--- NOTE | 2019-04-09 09:05 | Consultation ---
History of Present Illness General Date patient seen: Apr 09, 2019 Chief Complaint: Present Illness Allergies: Coded Allergies: BANANA (Verified Allergy, Unknown, 01/04/18) PENICILLINS (Verified Allergy, Unknown, 01/04/18) ASPIRIN (Verified Adverse Reaction, Unknown, 01/04/18) stomach pain Medication History Scheduled Albuterol Sulfate* (Albuterol Sulfate Mdi*), 2 PUFF INH Q6H Scheduled PRN Albuterol Sulfate* (Albuterol Sulfate Mdi*), 2 PUFF INH Q4H PRN for cough/ wheezing Discontinued Medications Cephalexin* (Keflex*), 500 MG ORAL EVERY 6 HOURS Discontinued Reason: Pt stopped taking med Famotidine (Pepcid), 20 MG ORAL BID Discontinued Reason: Pt stopped taking med Hydrocodone Bit/Acetaminophen 5-325* ([place] 5-325*), 1 TAB ORAL Q6H PRN for For Pain Discontinued Reason: Pt stopped taking med Hydrocodone Bit/Acetaminophen 5-325* ([place] 5-325*), 1 TAB ORAL Q6H PRN for For Pain Discontinued Reason: Pt stopped taking med Hydrocodone Bit/Acetaminophen 5-325* ([place] 5-325*), 1 TAB ORAL Q6H PRN for For Pain, (Reported) Discontinued Reason: Pt stopped taking med Ibuprofen* (Motrin*), 600 MG ORAL THREE TIMES A DAY Discontinued Reason: Pt stopped taking med Neomycin/Polymyxin B Sulf/Hc* (Cortisporin Ear Solution*), 4 DROP LEFT EAR QID Discontinued Reason: Pt stopped taking med Ondansetron Odt* (Zofran Odt*), 4 MG ORAL Q6H PRN for Nausea & Vomiting Discontinued Reason: Pt stopped taking med Ondansetron Odt* (Zofran Odt*), 4 MG ORAL Q6H PRN for Nausea & Vomiting, ( Reported) Discontinued Reason: Pt stopped taking med Ondansetron* (Zofran*), 4 MG ORAL Q8H PRN for Nausea & Vomiting Discontinued Reason: Pt stopped taking med Patient History Healthcare decision maker Resuscitation status Advanced Directive on File Physical Exam Last 24 Hour Vital Signs Date Time Temp Pulse Resp B/P (MAP) Pulse Ox O2 Delivery O2 Flow Rate FiO2 04/09/19 08:00 97.9 60 16 170/98 (122) 100 04/09/19 04:35 98.6 04/09/19 04:00 98.7 20 131/85 (100) 98 04/09/19 01:09 Room Air 04/08/19 23:05 98.6 73 18 133/79 99 Room Air 04/08/19 23:00 98.4 19 129/88 (102) 98 04/08/19 22:58 98.6 73 18 133/79 99 Room Air 04/08/19 22:39 98.6 04/08/19 21:13 98.5 88 19 135/77 99 Room Air 04/08/19 20:04 98.9 04/08/19 19:10 89 18 Room Air 04/08/19 19:10 99.0 78 18 145/87 98 Room Air 04/08/19 19:07 99.0 89 18 165/102 (123) 98 Room Air Intake and Output 04/08/19 04/09/19 19:00 07:00 Intake Total 1000 ml Balance 1000 ml Intake IV Total 1000 ml # Voids 3 Laboratory Tests Test 04/08/19 19:30 04/08/19 20:30 04/09/19 06:55 White Blood Count 12.6 K/UL (4.8-10.8) #H 12.3 K/UL (4.8-10.8) H Red Blood Count 4.65 M/UL (4.70-6.10) L 4.65 M/UL (4.70-6.10) L Hemoglobin 11.7 G/DL (14.2-18.0) L 11.9 G/DL (14.2-18.0) L Hematocrit 38.0 % (42.0-52.0) L 37.9 % (42.0-52.0) L Mean Corpuscular Volume 82 FL (80-99) 82 FL (80-99) Mean Corpuscular Hemoglobin 25.1 PG (27.0-31.0) L 25.6 PG (27.0-31.0) L Mean Corpuscular Hemoglobin Concent 30.7 G/DL (32.0-36.0) L 31.4 G/DL (32.0-36.0) L Red Cell Distribution Width 18.0 % (11.6-14.8) H 19.7 % (11.6-14.8) H Platelet Count 247 K/UL (150-450) 238 K/UL (150-450) Mean Platelet Volume 7.9 FL (6.5-10.1) 7.5 FL (6.5-10.1) Neutrophils (%) (Auto) 78.8 % (45.0-75.0) H 70.8 % (45.0-75.0) Lymphocytes (%) (Auto) 13.4 % (20.0-45.0) L 17.6 % (20.0-45.0) L Monocytes (%) (Auto) 4.4 % (1.0-10.0) 4.8 % (1.0-10.0) Eosinophils (%) (Auto) 1.7 % (0.0-3.0) 5.3 % (0.0-3.0) H Basophils (%) (Auto) 1.7 % (0.0-2.0) 1.4 % (0.0-2.0) Sodium Level 145 MMOL/L (136-145) 142 MMOL/L (136-145) Potassium Level 3.5 MMOL/L (3.5-5.1) 3.3 MMOL/L (3.5-5.1) L Chloride Level 107 MMOL/L (98-107) 104 MMOL/L (98-107) Carbon Dioxide Level 26 MMOL/L (21-32) 28 MMOL/L (21-32) Anion Gap 13 mmol/L (5-15) 10 mmol/L (5-15) Blood Urea Nitrogen 11 mg/dL (7-18) 8 mg/dL (7-18) Creatinine 1.2 MG/DL (0.55-1.30) 1.2 MG/DL (0.55-1.30) Estimat Glomerular Filtration Rate > 60 mL/min (>60) > 60 mL/min (>60) Glucose Level 118 MG/DL (74-106) H 107 MG/DL (74-106) H Calcium Level 8.3 MG/DL (8.5-10.1) L 8.7 MG/DL (8.5-10.1) Total Bilirubin 0.5 MG/DL (0.2-1.0) 1.1 MG/DL (0.2-1.0) H Aspartate Amino Transf (AST/SGOT) 52 U/L (15-37) H 39 U/L (15-37) H Alanine Aminotransferase (ALT/SGPT) 64 U/L (12-78) 52 U/L (12-78) Alkaline Phosphatase 69 U/L (46-116) 74 U/L (46-116) Total Protein 6.4 G/DL (6.4-8.2) 6.3 G/DL (6.4-8.2) L Albumin 3.3 G/DL (3.4-5.0) L 3.3 G/DL (3.4-5.0) L Globulin 3.1 g/dL 3.0 g/dL Albumin/Globulin Ratio 1.1 (1.0-2.7) 1.1 (1.0-2.7) Lipase 868 U/L (73-393) H Serum Alcohol 20 mg/dL Urine Opiates Screen Positive (NEGATIVE) H Urine Barbiturates Screen Negative (NEGATIVE) Phencyclidine (PCP) Screen Negative (NEGATIVE) Urine Amphetamines Screen Negative (NEGATIVE) Urine Benzodiazepines Screen Negative (NEGATIVE) Urine Cocaine Screen Negative (NEGATIVE) Urine Marijuana (THC) Screen Positive (NEGATIVE) H Direct Bilirubin 0.3 MG/DL (0.0-0.3) Height (Feet): 5 Height (Inches): 5.00 Weight (Pounds): 149 Medications Current Medications Medications (Trade) Dose Ordered Sig/Maryam Route PRN Reason Start Time Stop Time Status Last Admin Dose Admin Iopamidol (Isovue-300 100ml) 100 ml NOW PRN INJ Radiology Procedure 04/08/19 20:15 Morphine Sulfate (Morphine Sulfate) 3 mg Q4H PRN IVP For Pain 04/09/19 00:00 04/16/19 00:00 04/09/19 08:53 Assessment/Plan Assessment/Plan: (1) Abdominal pain (2) Pancreatitis seen dictated Alexander Mallory Apr 09, 2019 09:05
[2019-04-09 10:00] VITALS: BP 157/88
--- NOTE | 2019-04-09 11:29 | Diagnostic Imaging Report ---
Indication: Reason For Exam: ABD PAIN Technique: PA and lateral views of the chest Comparison: None. Findings: The cardiomediastinal silhouette is within normal limits. There is no focal consolidation, pneumothorax or pleural effusion. Osseous structures demonstrate no acute abnormality. IMPRESSION: Normal chest radiograph.
[2019-04-09 12:00] VITALS: BP 147/80
--- NOTE | 2019-04-09 13:01 | Consultation ---
Consult Note Consult Note asked to marshall for fluid and electrolyte management 29-year-old male presents ED for evaluation. Complaining of abdominal pain with nausea and vomiting. States that he was seen here earlier today. Was told he had pancreatitis. States he was given medications but states that after he was discharged the pain came back states he has been vomiting. States he is unable to keep down his medications. Pain is epigastric, sharp, 10 out of 10, nonradiating. Denies fevers or chills. Denies chest pain. No other aggravating relieving factors. Denies any other associated symptoms Allergies: BANANA (Verified Allergy, Unknown, 01/04/18) PENICILLINS (Verified Allergy, Unknown, 01/04/18) ASPIRIN (Verified Adverse Reaction, Unknown, 01/04/18) stomach pain Past Medical History: asthma Past Medical History: No History, Except For Hx Asthma: Yes lab reviewed Assessment/Plan Pancreatitis ETOH and Drug abuse NPO IV Hydrate- + KCL IV Pepcid GI Ted Jimenez MD Apr 09, 2019 13:01
--- NOTE | 2019-04-09 13:35 | NUR ---
NURSE NOTES: pt has body itching after Dilaudid, MARKY CISNEROS notified and ordered morphin 4mg iv q4hr, noted and carried out. will continue to monitor.
--- NOTE | 2019-04-09 13:41 | NUR ---
NURSE NOTES: MARKY CISNEROS ordered Benadryl 50mg tab q6hr prn for itching, noted and carried out. will continue to monitor.
[2019-04-09] MEDS: D5 1/2NS w/KCl 40meq 1000ml 1,000 ML IV SCH (14:17)
[2019-04-09] MEDS ORDERED: Thiamine HCl 100 MG in D5W 55 ML IVPB SCH (14:30)
[2019-04-09 16:00] VITALS: BP 140/79
--- NOTE | 2019-04-09 16:20 | NUR ---
CASE MANAGEMENT:REVIEW 29 YR OLD MALE FROM HOME TO ER CC: ABDOMINAL PAIN SI: PANCREATITIS 98.9 89 18 165/102 98% ON RA WBC+12.6 LIPASE+868 IS: IV ZOFRAN IV PEPCID IV MORPHINE 1L NS BOLUS CT ABD/PELVIS : TO MED/SURG [facility]
--- NOTE | 2019-04-09 16:45 | Consultation ---
DATE OF CONSULTATION: 04/09/2019 PAIN MANAGEMENT CONSULTATION CONSULTING PHYSICIAN: Paulie Mckeon M.D. REFERRING PHYSICIAN: Jessy Davis M.D. PHYSICIAN ASSEMBLER WET WASH: Yolis Chapman CHIEF COMPLAINT: Abdominal pain. HISTORY OF PRESENT ILLNESS: This is a 29-year-old male, who is being seen on the Med/Surg floor of [facility] for initial pain management consultation. The patient was admitted under the care of Dr. Davis with complaints of abdominal pain, he states over the past 3 days. It is a constant acute pain, rating at 5/10, increased to 8/10 at its worse. Described the pain as a sharp, cramping pain. Reduced with medication. He states that he was drinking alcohol and found to have pancreatitis. Unable to tolerate p.o. medications at this time. Started on morphine 2 mg IV with pain reduction for about an hour and the pain returned. Due to this, we were consulted so that the patient will have adequate pain control while here in the hospital. PAST MEDICAL HISTORY: Asthma. PAST SURGICAL HISTORY: Left ankle surgery. SOCIAL HISTORY: Smokes tobacco. Smokes marijuana. Drinks alcohol. Denies IV drug abuse. ALLERGIES: Penicillin and aspirin. MEDICATIONS: Denies taking medications as outpatient. REVIEW OF SYSTEMS: Denies rash, fever, chills, sweating, dizziness, drowsiness, blurred vision, sore throat, change in hearing or weight. No shortness of breath or chest pain. No bowel or bladder incontinence. He is complaining of abdominal pain. PHYSICAL EXAMINATION: GENERAL: Alert, awake, and oriented. VITAL SIGNS: Blood pressure 170/90, heart rate 60, oxygen saturation 100%, respirations 16, temperature 97.9 degrees Fahrenheit. HEENT: PERRLA. NECK: Range of motion is full in all directions. No tenderness to paracervical muscles. No adenopathy. LUNGS: Decreased breath sounds bilaterally. HEART: S1 and S2 regular. ABDOMEN: Distended with tenderness to palpation. BACK: Range of motion is decreased in flexion, extension. EXTREMITIES: Range of motion full in all directions. No cyanosis. No clubbing. No edema. Sensory is intact. Reflexes are not obtainable. No adenopathy. ASSESSMENT AND PLAN: This is a 29-year-old male with abdominal pain, pancreatitis. The patient will be discontinued off the morphine, started on Dilaudid 0.5 mg IV every 4 hours as needed for severe pain. The patient was discussed with Dr. Mckeon and Dr. Mckeon concurred. We will follow the patient. Thank you very much for the courtesy of this consultation. Paulie Mckeon M.D. MARKY Chapman DR: TAYE JOB#: [id number] CC:
[2019-04-09 17:12] LABS: APPEARANCE,URINE CLEAR; BILIRUBIN, URINE NEGATIVE (NEGATIVE); GLUCOSE, URINE (UA) NEGATIVE (NEGATIVE); KETONES,URINE 3+ (NEGATIVE); LEUKOCYTE ESTERASE ,URINE 1+ (NEGATIVE); NITRITE,URINE NEGATIVE (NEGATIVE); PH,URINE 6 (4.5-8.0); PROTEIN,URINE 2+ (NEGATIVE); UROBILINOGEN,URINE 1 MG/DL (0.0-1.0)
[2019-04-09 17:15] LABS: COLOR,URINE YELLOW
--- NOTE | 2019-04-09 19:35 | NUR ---
HAND-OFF: Report given to MARBELLA SCHROEDER.Pt is awake and stable.
--- NOTE | 2019-04-09 19:36 | NUR ---
NURSE NOTES: Received patient in no apparent distress. A&OX4. IV was leaking. New IV inserted, right forearm G22, patent and intact. Bed in lowest position. Call light within reach. Will continue to monitor.
[2019-04-09 20:00] VITALS: BP 156/91
[2019-04-10] VITALS: BP 144/79
[2019-04-10] MEDS: Morphine Sulfate 4mg/ml Inj (IV USE ONLY) IVP PRN ×2 (01:09→05:10)
[2019-04-10] MEDS: D5 1/2NS w/KCl 40meq 1000ml 1,000 ML IV SCH (03:35)
[2019-04-10 04:00] VITALS: BP 133/84
[2019-04-10 06:34] LABS: EOSINOPHILS % (AUTO) 6.8 % (0.0-3.0); HEMATOCRIT 31.7 % (42.0-52.0); LYMPHOCYTES % (AUTO) 31.7 % (20.0-45.0); MEAN CORPUSCULAR VOLUME 81 FL (80-99); MONOCYTES % (AUTO) 8.9 % (1.0-10.0); NEUTROPHILS % (AUTO) 51.7 % (45.0-75.0); PLATELET COUNT 196 K/UL (150-450); RED BLOOD COUNT 3.89 M/UL (4.70-6.10); RED CELL DISTRIBUTION WIDTH 21.2 % (11.6-14.8); WHITE BLOOD COUNT 6.6 K/UL (4.8-10.8)
--- NOTE | 2019-04-10 07:15 | NUR ---
HAND-OFF: Report given to Gladis SCHROEDER.
[2019-04-10 07:19] LABS: ALANINE AMINOTRANSFERASE 37 U/L (12-78); ALBUMIN 2.7 G/DL (3.4-5.0); ALBUMIN/GLOBULIN RATIO 0.9 (1.0-2.7); ALKALINE PHOSPHATASE 61 U/L (46-116); ANION GAP 8 mmol/L (5-15); ASPARTATE AMINO TRANSFERASE 31 U/L (15-37); BILIRUBIN,TOTAL 0.6 MG/DL (0.2-1.0); BLOOD UREA NITROGEN 5 mg/dL (7-18); CALCIUM 8.2 MG/DL (8.5-10.1); CARBON DIOXIDE 27 MMOL/L (21-32); CHLORIDE 105 MMOL/L (98-107); CHOLESTEROL 93 MG/DL (< 200); HDL CHOLESTEROL 56 MG/DL (40-60); PHOSPHORUS 3.6 MG/DL (2.5-4.9); POTASSIUM 3.2 MMOL/L (3.5-5.1); SODIUM 140 MMOL/L (136-145); TRIGLYCERIDES 62 MG/DL (30-150)
--- NOTE | 2019-04-10 07:30 | NUR ---
NURSE NOTES: Received pt from DANIELA SCHROEDER. Pt is alert and orient x4. pt is in RA, No SOB or acute respiratory distress noted. pt has intact iv access RFA 22G is running well. pt is still NPO, MD KESSLER is aware. all needs attended, bed is locked and is in the lowest position, call light within easy reach, will continue to monitor. Addendum: 04/10/19 at 0737 by Gladis Spain RN Received pt from MARBELLA SCHROEDER.
[2019-04-10 08:00] VITALS: BP 158/94
--- NOTE | 2019-04-10 08:32 | General Progress Note ---
Assessment/Plan Assessment/Plan: Assessment - EtOH abuse - EtOH pancreatitis Recommendation - Begin clears and advance - d/c EtOH - discharge planning Subjective Allergies: Coded Allergies: BANANA (Verified Allergy, Unknown, 01/04/18) PENICILLINS (Verified Allergy, Unknown, 01/04/18) ASPIRIN (Verified Adverse Reaction, Unknown, 01/04/18) stomach pain Subjective Better abd pain improved hungry Objective Last 24 Hour Vital Signs Date Time Temp Pulse Resp B/P (MAP) Pulse Ox O2 Delivery O2 Flow Rate FiO2 04/10/19 08:00 98.3 98 18 158/94 (115) 99 04/10/19 04:00 98.1 59 18 133/84 (100) 97 04/10/19 00:00 98.4 60 18 144/79 (100) 99 04/09/19 21:00 Room Air 04/09/19 20:00 99.1 72 18 156/91 (112) 100 04/09/19 17:38 98.9 04/09/19 16:00 98.9 69 18 140/79 (99) 98 04/09/19 13:05 98.6 04/09/19 12:00 98.6 64 16 147/80 (102) 98 04/09/19 10:00 62 157/88 (111) 04/09/19 09:00 Room Air Intake and Output 04/09/19 04/10/19 19:00 07:00 Intake Total 356 ml 900 ml Output Total 550 ml Balance 356 ml 350 ml Intake IV Total 356 ml 900 ml Output Urine Total 550 ml # Voids 5 2 Laboratory Tests 04/09/19 16:55: Urine Color Yellow, Urine Appearance Clear, Urine pH 6, Urine Specific [place] 1.015, Urine Protein 2+H, Urine Glucose (UA) Negative, Urine Ketones 3+H, Urine Blood 1+H, Urine Nitrite Negative, Urine Bilirubin Negative, Urine Urobilinogen 1H, Urine Leukocyte Esterase 1+H, Urine RBC 0-2H, Urine WBC 10-15H, Urine Squamous Epithelial Cells Occasional, Urine Bacteria Occasional 04/10/19 05:20: White Blood Count 6.6, Red Blood Count 3.89L, Hemoglobin 10.0L, Hematocrit 31.7L , Mean Corpuscular Volume 81, Mean Corpuscular Hemoglobin 25.7L, Mean Corpuscular Hemoglobin Concent 31.6L, Red Cell Distribution Width 21.2H, Platelet Count 196, Mean Platelet Volume 8.3, Neutrophils (%) (Auto) 51.7, Lymphocytes (%) (Auto) 31.7, Monocytes (%) (Auto) 8.9, Eosinophils (%) (Auto) 6.8H, Basophils (%) (Auto) 1.0, Sodium Level 140, Potassium Level 3.2L, Chloride Level 105, Carbon Dioxide Level 27, Anion Gap 8, Blood Urea Nitrogen 5L , Creatinine 1.0, Estimat Glomerular Filtration Rate > 60, Glucose Level 116H, Uric Acid 4.6, Calcium Level 8.2L, Phosphorus Level 3.6, Magnesium Level 2.0, Total Bilirubin 0.6, Aspartate Amino Transf (AST/SGOT) 31, Alanine Aminotransferase (ALT/SGPT) 37, Alkaline Phosphatase 61, C-Reactive Protein, Quantitative 2.2H, Total Protein 5.6L, Albumin 2.7L, Globulin 2.9, Albumin/ Globulin Ratio 0.9L, Triglycerides Level 62, Cholesterol Level 93, LDL Cholesterol 26, HDL Cholesterol 56, Cholesterol/HDL Ratio 1.7L, Lipase 194, Vitamin B12 Level 297, Folate 8.2L, Thyroid Stimulating Hormone (TSH) 3.030 Height (Feet): 5 Height (Inches): 5.00 Weight (Pounds): 149 Objective WDWN NCAT supple CTA RRR abd soft ND NT no edema Willis Chavez MD Apr 10, 2019 08:32
--- NOTE | 2019-04-10 08:33 | NUR ---
NURSE NOTES: Pt insist to go out to smoke, Dr NEW notified and he said it is against hospital policy to smoke and he didn't give any order to smoke. MAGDALENE TOBAR and SW notified and they emphasis that it is against hospital policy to smoke. pt is stable, V/S stable. pt consumed breakfast as order and tolerate well. iv access D/C. pt notified to F/U with Dr MOSCOSO and has phone number. all belongings are with pt and he signed belongings list. pt signed AMA and left hospital by himself.
--- NOTE | 2019-04-10 09:00 | NUR ---
CHARGE NURSE NOTE: 0845am, patient decided to leave AMA. Spoke with patient. Discussed his condition and consequences leaving AMA. Pt still wants to leave, because "he wants to smoke and needs to go to his work." 0900am received order from to discharge patient. At that point pt was already staying in the elevator leaving AMA. and Nursing Ornament Setter Hattie notified.
--- NOTE | 2019-04-11 05:53 | Discharge Summary ---
Discharge Summary Discharge Summary _ DATE OF ADMISSION: 04/08/2019 DATE OF DISCHARGE: 04/10/2019 DISCHARGED BY: REASON FOR ADMISSION: 29 years old male with past medical history significant for asthma, presented to emergency room complaining of abdominal pain with nausea and vomiting. Patient seen in the emergency room earlier and was told that he had pancreatitis. Patient received medication and was discharged. However, his pain returned. He was vomiting. He was unable to keep down his medication. Pain reported as sharp, severe, epigastric, nonradiating, 10 out of 10. He denied fever or chills. He denied chest pain. Upon evaluation blood pressure was elevated 165/102, no fevers. Laboratory work-up revealed leukocytosis WBC 12.6, hemoglobin 11.7, hematocrit 38. Platelet count 247. Potassium 3.5. BUN 11, creatinine 1.2. Anion gap 13. AST 52 , ALT 64. Lipase 868. Urine toxicology screen was positive for opiates and marijuana. Serum alcohol level 20. CT scan of the abdomen and pelvis revealed mildly enlarged pancreas, measuring patchy hypoattenuation suggesting edema, suggestive of acute pancreatitis. Moderate abdominopelvic ascites. Patient started on IV fluids, received antiemetic, analgesic, and IV Pepcid and admitted for further management. CONSULTANTS: GI specialist Dr. Chavez manufacturing chief engineer Dr. Etienne Pain Specialist Dr. Mckeon HOSPITAL COURSE: Patient admitted to medical surgical floor. GI specialist followed. Patient started on the IV fluid and initially kept NPO. Pain management was addressed as per pain specialist recommendation. Symptomatic treatment provided. Patient started on Pepcid. Antiemetic were on board as needed. Senior Engineering Manager followed. Renal parameters and electrolytes were closely monitored. Potassium replaced. Blood pressure stabilized as pain was controlled. Lipase trended down from 868 down to 194. AST and ALT trended down. Lipid panel was stable. Patient was counseled on EtOH cessation. Patient clinically stabilized and was ready for discharge home. Patient decided to go smoking , which was against hospital policy. Patient decided to leave AGAINST MEDICAL ADVICE. At time when patient was already in the elevator , discharge order was obtained . FINAL DIAGNOSES: Abdominal pain likely due to acute pancreatitis Alcoholic pancreatitis Alcohol abuse I have been assigned to dictate discharge summary for this account. I was not involved in the patient's management. Luann Grajeda NP Apr 11, 2019 05:53
--- NOTE | 2019-04-11 11:54 | Consultation ---
DATE OF CONSULTATION: 04/08/2019 GASTROENTEROLOGY CONSULTATION CONSULTING PHYSICIAN: Willis Chavez M.D. CHIEF COMPLAINT: I was asked to see this patient by Dr. Jessy Davis for evaluation of pancreatitis. HISTORY OF PRESENT ILLNESS: The patient is a 29-year-old man with multiple medical problems, who comes into the hospital due to abdominal pain, nausea, and vomiting. symptoms for about six to seven days. He was diagnosed with pancreatitis in the emergency room based on the laboratory evaluation. He previously had another bout of pancreatitis about two or three years ago when he went to [facility]. The patient drinks six to seven drinks of adolph. PAST MEDICAL HISTORY: Remarkable for history of asthma. MEDICATIONS: None. FAMILY HISTORY: Noncontributory. SOCIAL HISTORY: The patient is single. He does smoke and drinks alcohol as described above. He does not use any drugs. REVIEW OF SYSTEMS: Otherwise negative. PHYSICAL EXAMINATION: GENERAL: Well-developed, well-nourished, man, seen in his room. HEENT: Normocephalic and atraumatic. Sclerae anicteric. Oropharynx clear. NECK: Supple. CHEST: Clear to auscultation. CARDIAC: Revealed regular rate. ABDOMEN: Soft and tender to palpation in the epigastric region without guarding or rebound. EXTREMITIES: Revealed no edema. LABORATORY DATA: Noted. ASSESSMENT: This patient presents with a bout of recurrent pancreatitis, which in this case is clearly due to alcohol abuse. The patient was strongly advised to discontinue alcohol to avoid future occurrences of pancreatitis. In the meantime, the patient's course at this point is usually supportive since the process usually and resolve itself. IV hydration should be emphasized. RECOMMENDATIONS: Per above discussion and per orders written in the chart. Thank you for asking me to participate in the care of this patient. Willis Chavez M.D. DR: PENNIE JOB#: [id number] CC:
--- NOTE | 2019-04-11 11:55 | History and Physical Report ---
DATE OF ADMISSION: 04/08/2019 . HISTORY OF PRESENT ILLNESS: The patient admitted for acute pancreatitis, was seen and discharged earlier in the day, was admitted for pancreatitis, most likely alcohol induced. The patient also had large amounts of fluid around the pancreas on the imaging study. The patient also admitted for hypokalemia. The patient has abdominal pain. PAST MEDICAL HISTORY: Alcoholic cirrhosis. PAST SURGICAL HISTORY: None known. ALLERGIES: None known. MEDICATIONS: 00:51 SOCIAL HISTORY: Does have history of alcohol abuse. REVIEW OF SYSTEMS: HEENT: Denies headaches. RESPIRATORY: Denies shortness of breath. Denies cough. CARDIOVASCULAR: No chest pain or orthopnea. GASTROINTESTINAL: Reports abdominal pain. EXTREMITIES: Denies pain. CENTRAL NERVOUS SYSTEM: Denies change in vision or speech pattern. PHYSICAL EXAMINATION: VITAL SIGNS: Temperature 97.2, pulse 78, blood pressure 130/70. HEENT: PERRLA. NECK: Supple. No lymphadenopathy. CHEST: Clear to auscultation. CARDIOVASCULAR: Regular rate and rhythm. ABDOMEN: Soft; however it is tender. No organomegaly. EXTREMITIES: No edema. Moves all four extremities. NEUROLOGIC: Sensory intact to light touch. Reflexes equal on both sides. LABORATORY AND DIAGNOSTIC DATA: Significant for lipase elevated at . Potassium of 3.5. ASSESSMENT: 1. Hypokalemia. 2. Pancreatitis. 3. Abdominal pain. I have asked Dr. Sotelo, Dr. Mckeon, Dr. Etienne, Dr. Chavez to see the patient for further treatment and management of the above-mentioned symptoms, abnormalities, and diagnoses. Jessy Davis M.D. DR: Amarjit JOB#: [id number] CC:
== END 2019-04-10 08:41 | disposition left against medical advice (07) | DRG 440 ==
LOC: EMR 19:20 → 4E 22:00 → EDBEDREQ 22:47
DX: K85.20 Alcohol induced acute pancreatitis without necrosis or infection (principal); F10.10 Alcohol abuse, uncomplicated; Z88.6 Allergy status to analgesic agent; Z88.0 Allergy status to penicillin; J45.909 Unspecified asthma, uncomplicated; E87.6 Hypokalemia; K70.30 Alcoholic cirrhosis of liver without ascites
CPT/HCPCS: 36415; 71046; 74177; 80053; 80061; 80307; 81001; 82248; 82607; 82746; 83690; 83735; 84100; 84443; 84550; 85025; 86140; 87086; 96361; 96374; 96375; 96376; 99285; G0480; J2405; J7030

== ENCOUNTER 2019-05-17 18:58 | Inpatient (IN) | payer MEDICAID ==
[2019-05-17] VITALS: BP 142/72
[~2019-05-17] VITALS: Ht 162.6 cm; Wt 65.8 kg
[~2019-05-17 18:58] MED LIST changes: +ONDANSETRON ODT4 MG BC
[2019-05-17 19:15] VITALS: BP 175/97
[2019-05-17] MEDS ORDERED: Morphine Sulfate 4mg/ml Inj (IV USE ONLY) IVP ONE (19:30)
[2019-05-17] MEDS ORDERED: Ketorolac 30mg Inj IV ONE (19:30)
[2019-05-17] MEDS ORDERED: Omnipaque-300 100ml vial INJ PRN (19:30)
[2019-05-17 19:53] LABS: ANION GAP 12 mmol/L (5-15); BLOOD UREA NITROGEN 10 mg/dL (7-18); CALCIUM 7.8 MG/DL (8.5-10.1); CARBON DIOXIDE 25 MMOL/L (21-32); CHLORIDE 102 MMOL/L (98-107); CREATININE 1.2 MG/DL (0.55-1.30); POTASSIUM 3.5 MMOL/L (3.5-5.1); SODIUM 139 MMOL/L (136-145)
[2019-05-17 19:57] LABS: ALANINE AMINOTRANSFERASE 52 U/L (12-78); ALBUMIN 3.6 G/DL (3.4-5.0); ALBUMIN/GLOBULIN RATIO 1.2 (1.0-2.7); ALKALINE PHOSPHATASE 64 U/L (46-116); ASPARTATE AMINO TRANSFERASE 51 U/L (15-37); BILIRUBIN,TOTAL 0.9 MG/DL (0.2-1.0)
[2019-05-17 20:03] LABS: BASOPHILS % (AUTO) 3.8 % (0.0-2.0); EOSINOPHILS % (AUTO) 2.8 % (0.0-3.0); HEMATOCRIT 35.1 % (42.0-52.0); HEMOGLOBIN 11.3 G/DL (14.2-18.0); LYMPHOCYTES % (AUTO) 14.8 % (20.0-45.0); MEAN CORPUSCULAR VOLUME 77 FL (80-99); MONOCYTES % (AUTO) 6.9 % (1.0-10.0); NEUTROPHILS % (AUTO) 71.8 % (45.0-75.0); PLATELET COUNT 222 K/UL (150-450); RED BLOOD COUNT 4.58 M/UL (4.70-6.10); RED CELL DISTRIBUTION WIDTH 18.9 % (11.6-14.8); WHITE BLOOD COUNT 8.4 K/UL (4.8-10.8)
--- NOTE | 2019-05-17 20:46 | Diagnostic Imaging Report ---
EXAM: CT Abdomen and Pelvis With Intravenous Contrast CLINICAL HISTORY: ABD PAIN TECHNIQUE: Axial computed tomography images of the abdomen and pelvis with intravenous contrast. CTDI is 13.80 mGy and DLP is 783.90 mGy-cm. One or more of the following dose reduction techniques were used: automated exposure control, adjustment of the mA and/or kV according to patient size, use of iterative reconstruction technique. COMPARISON: CT abdomen and pelvis dated 05/26/2009 and 04/08/2019 FINDINGS: Lung bases: Unremarkable. No mass. No consolidation. ABDOMEN: Liver: Decreased attenuation of the liver suggesting hepatic steatosis. Gallbladder and bile ducts: Unremarkable. Pancreas: Question pancreatic and peripancreatic edema which may represent pancreatitis. Spleen: Unremarkable. Adrenals: Unremarkable. Kidneys and ureters: Unremarkable. Stomach and bowel: Unremarkable. PELVIS: Appendix: No findings to suggest acute appendicitis. Bladder: Unremarkable. Reproductive: Unremarkable as visualized. ABDOMEN and PELVIS: Intraperitoneal space: Mild amount of ascites. Bones/joints: No acute fracture. No dislocation. Soft tissues: Unremarkable. Vasculature: Unremarkable. No abdominal aortic aneurysm. Lymph nodes: Unremarkable. IMPRESSION: 1. Question pancreatic and peripancreatic edema which may represent pancreatitis. Correlate with amylase and lipase. 2. Mild amount of ascites, grossly unchanged.
--- NOTE | 2019-05-17 21:15 | NUR ---
ED Nurse Note: Pt ambulated to ED from home c/ov 01/25 abdominal pain since this morning, pt was discharged from here earlier today for pancreatitis, pt reports N and blood in stool Addendum: 05/17/19 at 2220 by KDEARING original note at 191
--- NOTE | 2019-05-17 21:39 | Emergency Room Report ---
History of Present Illness General Chief Complaint: Abdominal Pain Source: Patient Present Illness HPI 29-year-old male presents ED for evaluation. Brought in chief complaining of abdominal pain with nausea and vomiting. Pain is epigastric, 9 out of 10, sharp , radiating to the back. States he has had pancreatitis in the past. Was drinking alcohol yesterday. States he was seen here this morning. Was treated and subsequently discharged but states his symptoms returned. Denies fevers or chills. Denies chest pain. No other aggravating relieving factors. Denies any other associated symptoms Allergies: Coded Allergies: BANANA (Verified Allergy, Unknown, 01/04/18) PENICILLINS (Verified Allergy, Unknown, 01/04/18) ASPIRIN (Verified Adverse Reaction, Unknown, 01/04/18) stomach pain Patient History Past Medical History: asthma Past Surgical History: none Pertinent Family History: none Social History: Denies: smoking, alcohol use, drug use Immunizations: UTD Reviewed Nursing Documentation: PMH: Agreed; PSxH: Agreed Nursing Documentation-PMH Past Medical History: No History, Except For Hx Cardiac Problems: No Hx Asthma: Yes Hx Cancer: No Hx Neurological Problems: No Review of Systems All Other Systems: negative except mentioned in HPI Physical Exam Vital Signs Date Time Temp Pulse Resp B/P (MAP) Pulse Ox O2 Delivery O2 Flow Rate FiO2 05/17/19 19:03 98.4 66 22 175/97 (123) 98 Room Air Sp02 EP Interpretation: reviewed, normal General Appearance: no apparent distress, alert, GCS 15, non-toxic Head: normocephalic, atraumatic Eyes: bilateral eye normal inspection, bilateral eye PERRL ENT: hearing grossly normal, normal pharynx, no angioedema, normal voice Neck: full range of motion, supple/symm/no masses Respiratory: chest non-tender, lungs clear, normal breath sounds, speaking full sentences Cardiovascular #1: regular rate, rhythm, no edema Cardiovascular #2: 2+ carotid (R), 2+ carotid (L), 2+ radial (R), 2+ radial (L) , 2+ dorsalis pedis (R), 2+ dorsalis pedis (L) Gastrointestinal: normal bowel sounds, soft, non-distended, no guarding, no rebound, tenderness - epigastric Rectal: deferred Genitourinary: normal inspection, no CVA tenderness Musculoskeletal: back normal, normal range of motion, gait/station normal, non- tender Neurologic: alert, motor strength/tone normal, oriented x3, sensory intact, responsive, speech normal Psychiatric: judgement/insight normal, memory normal, mood/affect normal, no suicidal/homicidal ideation Reflexes: 3+ bicep (R), 3+ bicep (L), 3+ tricep (R), 3+ tricep (L), 3+ knee (R) , 3+ knee (L) Skin: no rash Lymphatic: no adenopathy Medical Decision Making Diagnostic Impression: Primary Impression: Pancreatitis Qualified Codes: K85.20 - Alcohol induced acute pancreatitis without necrosis or infection ER Course Hospital Course 29 yo M presents to ED c/o abd pain, vomiting/ Differential diagnoses include: BPH, cystitis, pyelonephritis, kidney stone Clinical course Patient placed on stretcher. teletypesetter monitor. After initial history and physical I ordered labs, IV fluids, UA, pain medication and CT scan Labs - no leukocytosis, Hb/Hct stable. electrolytes ok. Lipase > 900 CT abdomen and pelvis - pancreatitic and peripancreatic edema Case discussed with Dr. Davis and he agreed to accept the patient to his service for further care and support I feel this is a highly complex case requiring extensive working including EKG/ Rhythm strip, Xray/CT/US, Blood/urine lab work, repeat exams while in ED, and administration of strong opiates/narcotics for pain control, admission to hospital or close patient follow up. Diagnosis - acute pancreatitis Patient admitted to floor in serious condition Labs Test 05/17/19 19:20 White Blood Count 8.4 K/UL (4.8-10.8) Red Blood Count 4.58 M/UL (4.70-6.10) Hemoglobin 11.3 G/DL (14.2-18.0) Hematocrit 35.1 % (42.0-52.0) Mean Corpuscular Volume 77 FL (80-99) Mean Corpuscular Hemoglobin 24.6 PG (27.0-31.0) Mean Corpuscular Hemoglobin Concent 32.1 G/DL (32.0-36.0) Red Cell Distribution Width 18.9 % (11.6-14.8) Platelet Count 222 K/UL (150-450) Mean Platelet Volume 7.3 FL (6.5-10.1) Neutrophils (%) (Auto) 71.8 % (45.0-75.0) Lymphocytes (%) (Auto) 14.8 % (20.0-45.0) Monocytes (%) (Auto) 6.9 % (1.0-10.0) Eosinophils (%) (Auto) 2.8 % (0.0-3.0) Basophils (%) (Auto) 3.8 % (0.0-2.0) Sodium Level 139 MMOL/L (136-145) Potassium Level 3.5 MMOL/L (3.5-5.1) Chloride Level 102 MMOL/L (98-107) Carbon Dioxide Level 25 MMOL/L (21-32) Anion Gap 12 mmol/L (5-15) Blood Urea Nitrogen 10 mg/dL (7-18) Creatinine 1.2 MG/DL (0.55-1.30) Estimat Glomerular Filtration Rate > 60 mL/min (>60) Glucose Level 111 MG/DL (74-106) Calcium Level 7.8 MG/DL (8.5-10.1) Total Bilirubin 0.9 MG/DL (0.2-1.0) Aspartate Amino Transf (AST/SGOT) 51 U/L (15-37) Alanine Aminotransferase (ALT/SGPT) 52 U/L (12-78) Alkaline Phosphatase 64 U/L (46-116) Total Protein 6.6 G/DL (6.4-8.2) Albumin 3.6 G/DL (3.4-5.0) Globulin 3.0 g/dL Albumin/Globulin Ratio 1.2 (1.0-2.7) Lipase 972 U/L (73-393) CT/MRI/US Diagnostic Results CT/MRI/US Diagnostic Results : Imaging Test Ordered: CT A/P Impression COMPARISON: CT abdomen and pelvis dated 05/26/2009 and 04/08/2019 FINDINGS: Lung bases: Unremarkable. No mass. No consolidation. ABDOMEN: Liver: Decreased attenuation of the liver suggesting hepatic steatosis. Gallbladder and bile ducts: Unremarkable. Pancreas: Question pancreatic and peripancreatic edema which may represent pancreatitis. Spleen: Unremarkable. Adrenals: Unremarkable. Kidneys and ureters: Unremarkable. Stomach and bowel: Unremarkable. PELVIS: Appendix: No findings to suggest acute appendicitis. Bladder: Unremarkable. Reproductive: Unremarkable as visualized. ABDOMEN and PELVIS: Intraperitoneal space: Mild amount of ascites. Bones/joints: No acute fracture. No dislocation. Soft tissues: Unremarkable. Vasculature: Unremarkable. No abdominal aortic aneurysm. Lymph nodes: Unremarkable. Last Vital Signs Date Time Temp Pulse Resp B/P (MAP) Pulse Ox O2 Delivery O2 Flow Rate FiO2 05/17/19 19:03 98.4 66 22 175/97 (123) 98 Room Air Status: improved Disposition: ADMITTED INPATIENT Condition: Serious Referrals: NOT CHOSEN IPA/,REFERRING (PCP) Red Hassan MD May 17, 2019 21:39
--- NOTE | 2019-05-17 22:15 | NUR ---
TRANSFER TO FLOOR: Patient transferred to as ordered, per Dr Parmar. Report given to ELDA Antoine. Belongings and medications given to . Family and or S/O informed of transfer.
[2019-05-17 22:25] VITALS: BP 157/79
--- NOTE | 2019-05-17 22:30 | NUR ---
NURSE NOTES: Received patient awake, verbally responsive per raheem accompanied by ER, RN. NO sob. Not in any form of respiratory distress. called Dr. Davis for admission orders. noted and carried out. needs attended and met. provided rest and comfort. bed locked and in lowest position. will continue plan of care.
[2019-05-18] VITALS (7 sets, daily range): BP systolic 142–173; BP diastolic 62–95
[2019-05-18] MEDS: Morphine Sulfate 2mg/ml Inj(IV/IM USE ONLY) IVP PRN ×6 (00:37→22:28)
--- NOTE | 2019-05-18 04:40 | NUR ---
NURSE NOTES: Patient complaints of pain on the middle back. morphine given as ordered. flushed per facility protocol. will continue plan of care.
[2019-05-18 05:39] LABS: BASOPHILS % (AUTO) 1.4 % (0.0-2.0); EOSINOPHILS % (AUTO) 7.2 % (0.0-3.0); HEMATOCRIT 30.2 % (42.0-52.0); HEMOGLOBIN 9.5 G/DL (14.2-18.0); MEAN CORPUSCULAR VOLUME 77 FL (80-99); MONOCYTES % (AUTO) 11.7 % (1.0-10.0); NEUTROPHILS % (AUTO) 42.7 % (45.0-75.0); PLATELET COUNT 187 K/UL (150-450); RED BLOOD COUNT 3.91 M/UL (4.70-6.10); RED CELL DISTRIBUTION WIDTH 20.9 % (11.6-14.8); WHITE BLOOD COUNT 6.5 K/UL (4.8-10.8)
[2019-05-18 05:58] LABS: ALANINE AMINOTRANSFERASE 42 U/L (12-78); ALBUMIN 3.1 G/DL (3.4-5.0); ALBUMIN/GLOBULIN RATIO 1.1 (1.0-2.7); ALKALINE PHOSPHATASE 58 U/L (46-116); ANION GAP 10 mmol/L (5-15); ASPARTATE AMINO TRANSFERASE 47 U/L (15-37); BLOOD UREA NITROGEN 7 mg/dL (7-18); CALCIUM 8.3 MG/DL (8.5-10.1); CARBON DIOXIDE 24 MMOL/L (21-32); CHLORIDE 104 MMOL/L (98-107); CREATININE 0.9 MG/DL (0.55-1.30); POTASSIUM 3.2 MMOL/L (3.5-5.1); SODIUM 138 MMOL/L (136-145)
--- NOTE | 2019-05-18 07:24 | NUR ---
HAND-OFF: Report given to ELDA QUINN.
--- NOTE | 2019-05-18 07:25 | NUR ---
NURSE NOTES: Received report from ELDA Stone. Rounding done with outgoing nurse. Pt a/o x 4, asleep. Denies any pain at this time. Bed in lowest position, call light within reach. Will continue to monitor.
--- NOTE | 2019-05-18 08:25 | NUR ---
HAND-OFF: Report given to ELDA Griffith.
--- NOTE | 2019-05-18 09:32 | General Progress Note ---
Assessment/Plan Assessment/Plan: Assessment - EtOH pancreatitis - microcytic anemia Recommendations - advance diet to clears - follow labs and symptoms - check Fe - check OB - outpatient anemia w/u Subjective Allergies: Coded Allergies: BANANA (Verified Allergy, Unknown, 01/04/18) PENICILLINS (Verified Allergy, Unknown, 01/04/18) ASPIRIN (Verified Adverse Reaction, Unknown, 01/04/18) stomach pain Objective Last 24 Hour Vital Signs Date Time Temp Pulse Resp B/P (MAP) Pulse Ox O2 Delivery O2 Flow Rate FiO2 05/18/19 08:00 98.2 60 19 162/92 (115) 96 05/18/19 04:00 98.2 75 19 146/62 (90) 94 05/18/19 00:00 98.4 82 20 142/72 (95) 96 05/17/19 23:58 Room Air 05/17/19 22:25 98.8 67 157/79 (105) 05/17/19 22:15 98.4 82 22 175/97 98 Room Air 05/17/19 20:05 98.4 05/17/19 20:05 98.4 05/17/19 19:15 66 22 Room Air 05/17/19 19:15 98.4 82 22 175/97 98 Room Air 05/17/19 19:03 98.4 66 22 175/97 (123) 98 Room Air Intake and Output 05/17/19 05/18/19 19:00 07:00 Intake Total 450 ml Output Total 300 ml Balance 150 ml Intake Oral 0 ml IV Total 450 ml Output Urine Total 300 ml Laboratory Tests 05/17/19 19:20: White Blood Count 8.4, Red Blood Count 4.58L, Hemoglobin 11.3L, Hematocrit 35.1L , Mean Corpuscular Volume 77L, Mean Corpuscular Hemoglobin 24.6L, Mean Corpuscular Hemoglobin Concent 32.1, Red Cell Distribution Width 18.9H, Platelet Count 222, Mean Platelet Volume 7.3, Neutrophils (%) (Auto) 71.8, Lymphocytes (%) (Auto) 14.8L, Monocytes (%) (Auto) 6.9, Eosinophils (%) (Auto) 2.8, Basophils (%) (Auto) 3.8H, Sodium Level 139, Potassium Level 3.5, Chloride Level 102, Carbon Dioxide Level 25, Anion Gap 12, Blood Urea Nitrogen 10, Creatinine 1.2, Estimat Glomerular Filtration Rate > 60, Glucose Level 111H, Calcium Level 7.8L, Total Bilirubin 0.9, Aspartate Amino Transf (AST/SGOT) 51H, Alanine Aminotransferase (ALT/SGPT) 52, Alkaline Phosphatase 64, Total Protein 6.6, Albumin 3.6, Globulin 3.0, Albumin/Globulin Ratio 1.2, Lipase 972H 05/18/19 04:55: White Blood Count 6.5, Red Blood Count 3.91L, Hemoglobin 9.5L, Hematocrit 30.2L , Mean Corpuscular Volume 77L, Mean Corpuscular Hemoglobin 24.3L, Mean Corpuscular Hemoglobin Concent 31.4L, Red Cell Distribution Width 20.9H, Platelet Count 187, Mean Platelet Volume 8.4, Neutrophils (%) (Auto) 42.7L, Lymphocytes (%) (Auto) 37.0, Monocytes (%) (Auto) 11.7H, Eosinophils (%) (Auto) 7.2H, Basophils (%) (Auto) 1.4, Sodium Level 138, Potassium Level 3.2L, Chloride Level 104, Carbon Dioxide Level 24, Anion Gap 10, Blood Urea Nitrogen 7 , Creatinine 0.9, Estimat Glomerular Filtration Rate > 60, Glucose Level 89, Calcium Level 8.3L, Total Bilirubin 1.0, Aspartate Amino Transf (AST/SGOT) 47H, Alanine Aminotransferase (ALT/SGPT) 42, Alkaline Phosphatase 58, Total Protein 5.9L, Albumin 3.1L, Globulin 2.8, Albumin/Globulin Ratio 1.1, Lipase 497H Height (Feet): 5 Height (Inches): 4.00 Weight (Pounds): 145 Willis Chavez MD May 18, 2019 09:32
--- NOTE | 2019-05-18 10:29 | NUR ---
NURSE NOTES: Received pt from [facility] at 0900, Pt is alert and orient x4. pt is in RA, no SOB or acute respiratory distress noted. pt has intact iv access LFA 22G is running well. pt is eating breakfast and tolerate well. pt knows t collect OB and URIN. Dr MOSCOSO is aware abut K 3.2, waiting t call back. all needs attended, bed is locked and is in the lowest position, call light within easy reach. will continue to monitor.
--- NOTE | 2019-05-18 11:00 | NUR ---
NURSE NOTES: URIN SPECIMEN SENT TO LAB, WAITING FOR RESULT.
[2019-05-18 11:26] LABS: APPEARANCE,URINE CLEAR; BILIRUBIN, URINE NEGATIVE (NEGATIVE); COLOR,URINE PALE YELLOW; GLUCOSE, URINE (UA) NEGATIVE (NEGATIVE); KETONES,URINE 3+ (NEGATIVE); LEUKOCYTE ESTERASE ,URINE NEGATIVE (NEGATIVE); NITRITE,URINE NEGATIVE (NEGATIVE); PH,URINE 7 (4.5-8.0); PROTEIN,URINE 1+ (NEGATIVE); UROBILINOGEN,URINE NORMAL MG/DL (0.0-1.0)
--- NOTE | 2019-05-18 11:45 | NUR ---
CASE MANAGEMENT: INITIAL REVIEW 29 YO M PRESENTED TO OUR ED FROM HOME CC: ABD PAIN PMHx: ASTHMA. SI:PANCREATITIS. T 98.4 HR 66 RR 22 B/P 175/97 SATS 98% ON RA GLU 111 CA 7.8 AST 51 LIPASE 972 IS: ZOFRAN IV X1 PEPCID IV X1 MORPHINE IV X1 NS BOLUS X1 TORADOL IV X1 CT Abdomen and Pelvis With Intravenous Contrast IMPRESSION: 1. Question pancreatic and peripancreatic edema which may represent pancreatitis. 2. Mild amount of ascites, grossly unchanged. PATIENT ADMITTED TO MED/SURG 05/17/2019 @ 2111 DCP: PATIENT TO BE DISCHARGED TO HOME ONCE MEDICALLY CLEARED. 05/18/2019 SI: ETOH PANCREATITIS. T 98.2 HR 60 RR 19 B/P 162/92 SATS 96% ON RA LABS: K 3.2 CA 8.3 AST 47 LIPASE 497 IS:NS @ 75 mL/HR MED/SURG PLAN OF CARE: PER GI>> - advance diet to clears - follow labs and symptoms - check Fe - check OB - outpatient anemia w/u Addendum: 05/18/19 at 1421 by Kirsty Tran CM INTERQUAL MET
[2019-05-18] MEDS: D5NS w/KCl 40mEq 1000ml 1,000 ML IV SCH (12:18)
--- NOTE | 2019-05-18 12:25 | NUR ---
NURSE NOTES: Dr KESSLER and VIRGEN notified about HTN and POSITIVE OPIOIDS. will continue to monitor.
--- NOTE | 2019-05-18 12:44 | Consultation ---
History of Present Illness General Date patient seen: May 18, 2019 Chief Complaint: Present Illness Allergies: Coded Allergies: BANANA (Verified Allergy, Unknown, 01/04/18) PENICILLINS (Verified Allergy, Unknown, 01/04/18) ASPIRIN (Verified Adverse Reaction, Unknown, 01/04/18) stomach pain Medication History Scheduled PRN Ondansetron Odt* (Zofran Odt*), 4 MG BC EVERY 6 HOURS PRN for Nausea & Vomiting Discontinued Medications Albuterol Sulfate* (Albuterol Sulfate Mdi*), 2 PUFF INH Q6H Discontinued Reason: Pt stopped taking med Albuterol Sulfate* (Albuterol Sulfate Mdi*), 2 PUFF INH Q4H PRN for cough/ wheezing Discontinued Reason: Pt stopped taking med Patient History Healthcare decision maker Resuscitation status Full Code Advanced Directive on File Physical Exam Last 24 Hour Vital Signs Date Time Temp Pulse Resp B/P (MAP) Pulse Ox O2 Delivery O2 Flow Rate FiO2 05/18/19 09:58 98.2 05/18/19 09:00 Room Air 05/18/19 08:00 98.2 60 19 162/92 (115) 96 05/18/19 04:00 98.2 75 19 146/62 (90) 94 05/18/19 00:00 98.4 82 20 142/72 (95) 96 05/17/19 23:58 Room Air 05/17/19 22:25 98.8 67 157/79 (105) 05/17/19 22:15 98.4 82 22 175/97 98 Room Air 05/17/19 20:05 98.4 05/17/19 20:05 98.4 05/17/19 19:15 66 22 Room Air 05/17/19 19:15 98.4 82 22 175/97 98 Room Air 05/17/19 19:03 98.4 66 22 175/97 (123) 98 Room Air Intake and Output 05/17/19 05/18/19 19:00 07:00 Intake Total 450 ml Output Total 300 ml Balance 150 ml Intake Oral 0 ml IV Total 450 ml Output Urine Total 300 ml Laboratory Tests Test 05/17/19 19:20 05/18/19 04:55 05/18/19 11:00 White Blood Count 8.4 K/UL (4.8-10.8) 6.5 K/UL (4.8-10.8) Red Blood Count 4.58 M/UL (4.70-6.10) L 3.91 M/UL (4.70-6.10) L Hemoglobin 11.3 G/DL (14.2-18.0) L 9.5 G/DL (14.2-18.0) L Hematocrit 35.1 % (42.0-52.0) L 30.2 % (42.0-52.0) L Mean Corpuscular Volume 77 FL (80-99) L 77 FL (80-99) L Mean Corpuscular Hemoglobin 24.6 PG (27.0-31.0) L 24.3 PG (27.0-31.0) L Mean Corpuscular Hemoglobin Concent 32.1 G/DL (32.0-36.0) 31.4 G/DL (32.0-36.0) L Red Cell Distribution Width 18.9 % (11.6-14.8) H 20.9 % (11.6-14.8) H Platelet Count 222 K/UL (150-450) 187 K/UL (150-450) Mean Platelet Volume 7.3 FL (6.5-10.1) 8.4 FL (6.5-10.1) Neutrophils (%) (Auto) 71.8 % (45.0-75.0) 42.7 % (45.0-75.0) L Lymphocytes (%) (Auto) 14.8 % (20.0-45.0) L 37.0 % (20.0-45.0) Monocytes (%) (Auto) 6.9 % (1.0-10.0) 11.7 % (1.0-10.0) H Eosinophils (%) (Auto) 2.8 % (0.0-3.0) 7.2 % (0.0-3.0) H Basophils (%) (Auto) 3.8 % (0.0-2.0) H 1.4 % (0.0-2.0) Sodium Level 139 MMOL/L (136-145) 138 MMOL/L (136-145) Potassium Level 3.5 MMOL/L (3.5-5.1) 3.2 MMOL/L (3.5-5.1) L Chloride Level 102 MMOL/L (98-107) 104 MMOL/L (98-107) Carbon Dioxide Level 25 MMOL/L (21-32) 24 MMOL/L (21-32) Anion Gap 12 mmol/L (5-15) 10 mmol/L (5-15) Blood Urea Nitrogen 10 mg/dL (7-18) 7 mg/dL (7-18) Creatinine 1.2 MG/DL (0.55-1.30) 0.9 MG/DL (0.55-1.30) Estimat Glomerular Filtration Rate > 60 mL/min (>60) > 60 mL/min (>60) Glucose Level 111 MG/DL (74-106) H 89 MG/DL (74-106) Calcium Level 7.8 MG/DL (8.5-10.1) L 8.3 MG/DL (8.5-10.1) L Total Bilirubin 0.9 MG/DL (0.2-1.0) 1.0 MG/DL (0.2-1.0) Aspartate Amino Transf (AST/SGOT) 51 U/L (15-37) H 47 U/L (15-37) H Alanine Aminotransferase (ALT/SGPT) 52 U/L (12-78) 42 U/L (12-78) Alkaline Phosphatase 64 U/L (46-116) 58 U/L (46-116) Total Protein 6.6 G/DL (6.4-8.2) 5.9 G/DL (6.4-8.2) L Albumin 3.6 G/DL (3.4-5.0) 3.1 G/DL (3.4-5.0) L Globulin 3.0 g/dL 2.8 g/dL Albumin/Globulin Ratio 1.2 (1.0-2.7) 1.1 (1.0-2.7) Lipase 972 U/L (73-393) H 497 U/L (73-393) H Urine Opiates Screen Positive (NEGATIVE) H Urine Barbiturates Screen Negative (NEGATIVE) Phencyclidine (PCP) Screen Negative (NEGATIVE) Urine Amphetamines Screen Negative (NEGATIVE) Urine Benzodiazepines Screen Negative (NEGATIVE) Urine Cocaine Screen Negative (NEGATIVE) Urine Marijuana (THC) Screen Positive (NEGATIVE) H Height (Feet): 5 Height (Inches): 4.00 Weight (Pounds): 145 Medications Current Medications Medications (Trade) Dose Ordered Sig/Maryam Route PRN Reason Start Time Stop Time Status Last Admin Dose Admin Acetaminophen (Tylenol) 650 mg Q4H PRN ORAL Mild Pain/Temp > 100.5 05/17/19 23:30 06/16/19 23:29 Dextrose/ Electrolytes 1,000 ml @ 75 mls/hr [id number] IV 05/18/19 12:00 06/17/19 11:59 05/18/19 12:18 Iohexol (OMNIPAQUE-300 100ml) 100 ml NOW PRN INJ Radiology Procedure 05/17/19 19:30 05/19/19 19:26 Morphine Sulfate (Morphine Sulfate) 2 mg Q4H PRN IVP For Pain 05/17/19 23:30 05/24/19 23:29 05/18/19 09:28 Ondansetron HCl (Zofran) 4 mg Q6H PRN IVP Nausea & Vomiting 05/17/19 23:30 06/16/19 23:29 Pantoprazole (Protonix) 40 mg EVERY 12 HOURS IVP 05/18/19 21:00 06/17/19 20:59 Assessment/Plan Assessment/Plan: (1) Abdominal pain (2) Acute pancreatitis seen dictated Alexander Mallory May 18, 2019 12:44
--- NOTE | 2019-05-18 14:05 | NUR ---
NURSE NOTES: called Dr MILLER again, left massage regarding HTN, waiting for call back, Dr NEW notified.
--- NOTE | 2019-05-18 15:00 | NUR ---
NURSE NOTES: Dr NEW called back and ordered Norvasc 5mg Po QD first dose now, noted and carried out. will continue to monitor.
--- NOTE | 2019-05-18 16:30 | Consultation ---
DATE OF CONSULTATION: 05/18/2019 GASTROENTEROLOGY CONSULTATION CONSULTING PHYSICIAN: Willis Chavez M.D. CHIEF COMPLAINT: I was asked to see this patient by Dr. Jessy Davis for evaluation of pancreatitis. HISTORY OF PRESENT ILLNESS: The patient is a 29-year-old man with a history of alcohol use who comes in with abdominal pain. The patient states that he has had 3 prior episodes of pancreatitis. The last one being about a month ago. He was hospitalized for that one about a month ago. He drinks about 6 servings of Mihir Aquiles daily. He had some nausea, vomiting, and epigastric abdominal pain prior to admission and the pain radiated to his back. PAST MEDICAL HISTORY: Otherwise unremarkable. History of ankle sprain, otitis externa, history of abscess, history of pancreatitis. FAMILY HISTORY: Noncontributory. SOCIAL HISTORY: The patient drinks 6 drinks a day as described above. MEDICATIONS: See the chart list for details. REVIEW OF SYSTEMS: Otherwise negative. PHYSICAL EXAMINATION: GENERAL: Well-developed, well-nourished man, seen in his room. HEENT: Normocephalic and atraumatic. Sclerae anicteric. Oropharynx clear. NECK: Supple. CHEST: Clear to auscultation. CARDIOVASCULAR: Revealed a regular rate. ABDOMEN: Soft and minimally tender in the epigastric region. EXTREMITIES: Revealed no edema. NEUROLOGIC: Nonfocal. LABORATORY DATA: Noted. ASSESSMENT: This patient presents with laboratory and radiographic evidence of pancreatitis in the setting of chronic alcohol use. The patient's management will be conservative and he should recover from this episode uneventfully. He was strongly advised to discontinue alcohol use permanently given his fourth attack of pancreatitis. The patient cannot recall if he previously had anemia and he has never had a colonoscopy. His laboratory parameters show microcytic anemia. I will check an iron panel, but he will likely require gastrointestinal evaluation as an outpatient once he is recovered from his current pancreatitis. RECOMMENDATIONS: Per above discussion and per orders in the chart. Thank you for asking me to participate in the care of this patient. Willis Chavez M.D. DR: KENJI JOB#: [id number] CC: BRIGIDA
--- NOTE | 2019-05-18 16:30 | History and Physical Report ---
DATE OF ADMISSION: 05/17/2019 HISTORY OF PRESENT ILLNESS: The patient admitted for pancreatitis. The patient does have some nausea and vomiting. The patient also complained of abdominal pain, 8/10. He was admitted for pancreatitis. The patient has history of alcohol abuse. Denies any chills. Denies any respiratory symptoms. PAST MEDICAL HISTORY: History of pancreatitis, history of asthma. ALLERGIES: Bananas, penicillin, aspirin. PAST SURGICAL HISTORY: None. SOCIAL HISTORY: Denies history of smoking. REVIEW OF SYSTEMS: HEENT: Denies headaches. RESPIRATORY: Denies shortness of breath. Denies cough. CARDIOVASCULAR: Denies chest pain. Denies orthopnea. GASTROINTESTINAL: Reports nausea, vomiting, abdominal pain for couple days. EXTREMITIES: Denies pain in lower extremities. CENTRAL NERVOUS SYSTEM: Denies changes in speech pattern. PHYSICAL EXAMINATION: VITAL SIGNS: Temperature is 98.4, pulse 82, blood pressure 142/72. HEENT: PERRLA. NECK: Supple. No lymphadenopathy. CHEST: Clear to auscultation. CARDIOVASCULAR: Regular rate and rhythm. No murmurs or extra sounds. GASTROINTESTINAL: Soft. Epigastric tenderness. No rebound. Abdomen is soft. No organomegaly. EXTREMITIES: No edema. Reflexes on both sides. Moves all four extremities. Sensory is intact to light touch. LABORATORY AND DIAGNOSTIC DATA: WBC of 8.4, hemoglobin 11.3, platelets 222. Sodium 139, potassium 3.5, BUN of 10, creatinine 1.2. AST of 51, and lipase of 972. ASSESSMENT: Hypokalemia. I have consulted Dr. Etienne for low potassium. For pancreatitis, I have consulted Dr. Chavez and Dr. Arnel Alejo to rule out any infectious etiology as well. The patient will be NPO and IV fluids will be continued. Jessy Davis M.D. DR: Amarjit JOB#: [id number] CC:
--- NOTE | 2019-05-18 18:30 | Consultation ---
DATE OF CONSULTATION: 05/18/2019 INFECTIOUS DISEASES CONSULTATION CONSULTING PHYSICIAN: Arnel Alejo M.D. PRIMARY ATTENDING PHYSICIAN: Jessy Davis M.D. REASON FOR CONSULTATION: Acute pancreatitis. HISTORY OF PRESENT ILLNESS: The patient is a 29-year-old male admitted last night complaining of abdominal pain in the upper part of abdomen associated with nausea and vomiting. Pain was sharp 9/10 with radiation to back. The patient had multiple admission to ER because of pancreatitis. PAST MEDICAL HISTORY: Pancreatitis. ALLERGIES: Aspirin, banana, penicillin. MEDICATIONS: Getting Protonix, Zofran, morphine, Tylenol. SOCIAL HISTORY: Single, smoking half-pack cigarettes a day, drinking 6 shot of alcohol every day. Denies drug abuse. REVIEW OF SYSTEMS: No fever. No chills. He has some dry cough. No nausea. Right now, the patient tolerating clear liquid diet. Has upper abdominal pain. No problem passing urine. PHYSICAL EXAMINATION: VITAL SIGNS: Temperature 98.2, pulse 60, blood pressure 162/92. GENERAL APPEARANCE: No acute distress, well developed. HEAD AND NECK: Whitish tongue. HEART: Normal rate. LUNGS: Clear. ABDOMEN: Soft and tender in the upper part of abdomen. NEUROLOGIC: Awake, alert, oriented x3. LABORATORY AND DIAGNOSTIC DATA: WBC 6.5, hemoglobin 9.5, hematocrit 30.2, . Sodium 138, potassium 3.2, chloride 104, bicarb 24, BUN 7, creatinine 0.9, glucose 89. Lipase 497 coming down from 972 at the time of admission. Urine toxicology is pending. UA was negative. CT scan of the abdomen and pelvis showed pancreatic edema. IMPRESSION: Acute alcoholic pancreatitis, anemia, nicotine dependence, alcohol abuse. RECOMMENDATIONS: 1. Continue to observe off antibiotic. 2. Recheck HIV virus status if it is not checked recently. At the end of my exam, I thank Dr. Davis, for involving me in the care of this patient. Arnel Alejo M.D. DR: Danish JOB#: [id number] CC: BRIGIDA
--- NOTE | 2019-05-18 19:23 | NUR ---
HAND-OFF: Report given to ELDA LOMELI. Pt is awake and stable. No BM during my shift, endorsed to F/U for OB.
[2019-05-18] MEDS: Pantoprazole Inj IVP SCH (20:08)
--- NOTE | 2019-05-19 | Consultation ---
DATE OF CONSULTATION: 05/18/2019 PAIN MANAGEMENT CONSULTATION REFERRING PHYSICIAN: Jessy Davis M.D. CONSULTING PHYSICIAN: Paulie Mckeon M.D. PHYSICIAN MACHINIST MECHANIC: Yolis Chapman CHIEF COMPLAINT: Abdominal pain. HISTORY OF PRESENT ILLNESS: This is a 29-year-old male, who has been seen on the med/surg floor of [facility] for initial pain management consultation. The patient has been admitted under the care of Dr. Davis due to complaints of abdominal pain and pancreatitis. He has been having pain in the abdominal area since . He states it is constant acute pain, rating 6/10 at times aching pain, increased with lying down and reduced with medications. He states that he has been drinking alcohol with his family on and after that he started to have severe abdominal pain. He was admitted to the hospital and found to have pancreatitis and has been seen by operations and maintenance specialist. He was started on morphine 2 mg IV every four hours as needed to reduce his pain. PAST MEDICAL HISTORY: Asthma. PAST SURGICAL HISTORY: Ankle surgery. SOCIAL HISTORY: He smokes tobacco, marijuana, drinks alcohol, and denies IV drug abuse. ALLERGIES: Penicillin and aspirin. REVIEW OF SYSTEMS: Denies rash, fever, chills, sweating, dizziness, drowsiness, blurred vision, sore throat, or change in weight. No shortness of breath or chest pain. No nausea, vomiting, diarrhea, or blood in the stool or urine. No dysuria. He is complaining of abdominal pain. PHYSICAL EXAMINATION: GENERAL: Alert and oriented. VITAL SIGNS: Blood pressure 162/92, heart rate is 60, oxygen saturation 90%, respirations 19, and temperature 98.3 degrees Fahrenheit. HEENT: PERRLA. NECK: Range of motion is full in all directions. No tenderness to paracervical muscles. No adenopathy. LUNGS: Clear bilaterally. HEART: S1 and S2 regular. ABDOMEN: Tenderness to palpation. BACK: Range of motion is full in flexion and extension. EXTREMITIES: Upper and lower extremity range of motion is full in directions. No cyanosis. No clubbing. No edema. Sensory is intact. No adenopathy. ASSESSMENT AND PLAN: This is a 29-year-old male with abdominal pain and acute pancreatitis. The patient will be continued on morphine as needed. The patient was discussed with Dr. Mckeon and he concurred. We will follow the patient. Thank you very much for the courtesy of this consultation. Paulie Mckeon M.D. MARKY Chapman DR: Taran JOB#: [id number] CC: BRIGIDA
[2019-05-19 00:07] VITALS: BP 158/96
[2019-05-19] MEDS: D5NS w/KCl 40mEq 1000ml 1,000 ML IV SCH ×2 (00:12→14:40)
[2019-05-19 04:45] VITALS: BP 139/80
--- NOTE | 2019-05-19 04:46 | NUR ---
NURSE NOTE: Pt is A/Ox4 with stable VS. Orders reviewed and physical assessment completed. Awaiting pt to have a BM in order to collect an occult stool sample. Will continue to monitor.
[2019-05-19 06:20] LABS: BASOPHILS % (AUTO) 2.1 % (0.0-2.0); HEMATOCRIT 34.9 % (42.0-52.0); HEMOGLOBIN 10.9 G/DL (14.2-18.0); LYMPHOCYTES % (AUTO) 39.6 % (20.0-45.0); MEAN CORPUSCULAR VOLUME 78 FL (80-99); MONOCYTES % (AUTO) 9.1 % (1.0-10.0); NEUTROPHILS % (AUTO) 40.2 % (45.0-75.0); PLATELET COUNT 213 K/UL (150-450); RED BLOOD COUNT 4.47 M/UL (4.70-6.10); RED CELL DISTRIBUTION WIDTH 21.2 % (11.6-14.8); WHITE BLOOD COUNT 4.4 K/UL (4.8-10.8)
[2019-05-19 06:42] LABS: ALANINE AMINOTRANSFERASE 51 U/L (12-78); ALBUMIN 3.6 G/DL (3.4-5.0); ALBUMIN/GLOBULIN RATIO 1.1 (1.0-2.7); ALKALINE PHOSPHATASE 65 U/L (46-116); ANION GAP 8 mmol/L (5-15); ASPARTATE AMINO TRANSFERASE 79 U/L (15-37); BILIRUBIN,TOTAL 0.6 MG/DL (0.2-1.0); BLOOD UREA NITROGEN 3 mg/dL (7-18); CALCIUM 8.9 MG/DL (8.5-10.1); CARBON DIOXIDE 28 MMOL/L (21-32); CHLORIDE 104 MMOL/L (98-107); POTASSIUM 3.4 MMOL/L (3.5-5.1); SODIUM 140 MMOL/L (136-145)
[2019-05-19 06:50] LABS: % IRON SATURATION 29 % (15-50); IRON 103 ug/dL (50-175); TOTAL IRON BINDING CAPACITY 361 ug/dL (250-450)
[2019-05-19 06:54] LABS: CREATINE KINASE 203 U/L (26-308); GAMMA GLUTAMYL TRANSPEPTIDASE 206 U/L (5-85); PHOSPHORUS 3.7 MG/DL (2.5-4.9)
--- NOTE | 2019-05-19 07:36 | NUR ---
NURSE NOTES: Pt received laying in bed awake on the phone. Informed that stool collection was pending, and instructions if and when he had a BM. Pt stated that outgoing nurse has already informed him about collection
[2019-05-19 08:00] VITALS: BP 152/101
--- NOTE | 2019-05-19 08:51 | General Progress Note ---
Assessment/Plan Assessment/Plan: (1) Abdominal pain (2) Acute pancreatitis Patient to be continued on Morphine as needed. D/w Dr. Mckeon and he concurred. Subjective Date patient seen: May 19, 2019 Time patient seen: 08:30 - am Constitutional: Reports: no symptoms HEENT: Reports: no symptoms Cardiovascular: Reports: no symptoms Respiratory: Reports: no symptoms Gastrointestinal/Abdominal: Reports: no symptoms Genitourinary: Reports: no symptoms Neurologic/Psychiatric: Reports: no symptoms Endocrine: Reports: no symptoms Hematologic/Lymphatic: Reports: no symptoms Allergies: Coded Allergies: BANANA (Verified Allergy, Unknown, 01/04/18) PENICILLINS (Verified Allergy, Unknown, 01/04/18) ASPIRIN (Verified Adverse Reaction, Unknown, 01/04/18) stomach pain Subjective Patient reports that he is doing better and has no pain at this time. Objective Last 24 Hour Vital Signs Date Time Temp Pulse Resp B/P (MAP) Pulse Ox O2 Delivery O2 Flow Rate FiO2 05/19/19 04:45 97.9 60 18 139/80 (99) 97 05/19/19 00:07 98.3 56 18 158/96 (116) 100 05/18/19 21:00 Room Air 05/18/19 20:00 98.7 60 18 148/91 (110) 100 05/18/19 18:52 98.9 05/18/19 18:00 156/88 (110) 05/18/19 16:00 98.9 64 20 163/95 (117) 98 05/18/19 15:09 66 173/91 05/18/19 12:00 98.1 66 19 173/91 (118) 100 05/18/19 09:00 Room Air Intake and Output 05/18/19 05/19/19 18:59 06:59 Intake Total 975 ml 990 ml Balance 975 ml 990 ml Intake Oral 150 ml 240 ml IV Total 825 ml 750 ml # Voids 4 2 Laboratory Tests 05/18/19 11:00: Urine Opiates Screen PositiveH, Urine Barbiturates Screen Negative, Phencyclidine (PCP) Screen Negative, Urine Amphetamines Screen Negative, Urine Benzodiazepines Screen Negative, Urine Cocaine Screen Negative, Urine Marijuana (THC) Screen PositiveH 05/19/19 05:20: White Blood Count 4.4L, Red Blood Count 4.47L, Hemoglobin 10.9L, Hematocrit 34.9L, Mean Corpuscular Volume 78L, Mean Corpuscular Hemoglobin 24.4L, Mean Corpuscular Hemoglobin Concent 31.3L, Red Cell Distribution Width 21.2H, Platelet Count 213, Mean Platelet Volume 7.8, Neutrophils (%) (Auto) 40.2L, Lymphocytes (%) (Auto) 39.6, Monocytes (%) (Auto) 9.1, Eosinophils (%) (Auto) 9.0H, Basophils (%) (Auto) 2.1H, Sodium Level 140, Potassium Level 3.4L, Chloride Level 104, Carbon Dioxide Level 28, Anion Gap 8, Blood Urea Nitrogen 3L , Creatinine 1.0, Estimat Glomerular Filtration Rate > 60, Glucose Level 123H, Uric Acid 3.9, Calcium Level 8.9, Phosphorus Level 3.7, Magnesium Level 1.9, Iron Level 103, Total Iron Binding Capacity 361, Percent Iron Saturation 29, Unsaturated Iron Binding 258, Ferritin 134, Total Bilirubin 0.6, Gamma Glutamyl Transpeptidase 206H, Aspartate Amino Transf (AST/SGOT) 79H, Alanine Aminotransferase (ALT/SGPT) 51, Alkaline Phosphatase 65, Total Creatine Kinase 203, C-Reactive Protein, Quantitative < 0.4, Pro-B-Type Natriuretic Peptide 109 , Total Protein 7.0, Albumin 3.6, Globulin 3.4, Albumin/Globulin Ratio 1.1, Lipase 207, Vitamin B12 Level 374, Folate 18.3, HIV (1&2) Antibody Rapid Negative 05/19/19 08:15: Stool Occult Blood [Pending] Height (Feet): 5 Height (Inches): 4.00 Weight (Pounds): 145 General Appearance: no apparent distress, alert EENT: PERRL/EOMI, normal ENT inspection Neck: normal alignment, supple Cardiovascular: normal rate, regular rhythm Respiratory/Chest: lungs clear, normal breath sounds Abdomen: non tender, soft Extremities: non-tender Edema: no edema noted Generalized Neurologic: alert, oriented x 3 Skin: warm/dry Alexander Mallory May 19, 2019 08:51
[2019-05-19] MEDS: Pantoprazole Inj IVP SCH (09:08)
--- NOTE | 2019-05-19 09:11 | General Progress Note ---
Assessment/Plan Assessment/Plan: Assessment - EtOH pancreatitis - resolved - microcytic anemia - normal Fe Panel, ? Thalassemia Recommendations - advance diet to low fat - d/c planning - follow labs and symptoms - check OB - pending - check Hg EP as outpatient Subjective Allergies: Coded Allergies: BANANA (Verified Allergy, Unknown, 01/04/18) PENICILLINS (Verified Allergy, Unknown, 01/04/18) ASPIRIN (Verified Adverse Reaction, Unknown, 01/04/18) stomach pain Subjective Feels better no vomiting pain improved Objective Last 24 Hour Vital Signs Date Time Temp Pulse Resp B/P (MAP) Pulse Ox O2 Delivery O2 Flow Rate FiO2 05/19/19 04:45 97.9 60 18 139/80 (99) 97 05/19/19 00:07 98.3 56 18 158/96 (116) 100 05/18/19 21:00 Room Air 05/18/19 20:00 98.7 60 18 148/91 (110) 100 05/18/19 18:52 98.9 05/18/19 18:00 156/88 (110) 05/18/19 16:00 98.9 64 20 163/95 (117) 98 05/18/19 15:09 66 173/91 05/18/19 12:00 98.1 66 19 173/91 (118) 100 Intake and Output 05/18/19 05/19/19 18:59 06:59 Intake Total 975 ml 990 ml Balance 975 ml 990 ml Intake Oral 150 ml 240 ml IV Total 825 ml 750 ml # Voids 4 2 Laboratory Tests 05/18/19 11:00: Urine Opiates Screen PositiveH, Urine Barbiturates Screen Negative, Phencyclidine (PCP) Screen Negative, Urine Amphetamines Screen Negative, Urine Benzodiazepines Screen Negative, Urine Cocaine Screen Negative, Urine Marijuana (THC) Screen PositiveH 05/19/19 05:20: White Blood Count 4.4L, Red Blood Count 4.47L, Hemoglobin 10.9L, Hematocrit 34.9L, Mean Corpuscular Volume 78L, Mean Corpuscular Hemoglobin 24.4L, Mean Corpuscular Hemoglobin Concent 31.3L, Red Cell Distribution Width 21.2H, Platelet Count 213, Mean Platelet Volume 7.8, Neutrophils (%) (Auto) 40.2L, Lymphocytes (%) (Auto) 39.6, Monocytes (%) (Auto) 9.1, Eosinophils (%) (Auto) 9.0H, Basophils (%) (Auto) 2.1H, Sodium Level 140, Potassium Level 3.4L, Chloride Level 104, Carbon Dioxide Level 28, Anion Gap 8, Blood Urea Nitrogen 3L , Creatinine 1.0, Estimat Glomerular Filtration Rate > 60, Glucose Level 123H, Uric Acid 3.9, Calcium Level 8.9, Phosphorus Level 3.7, Magnesium Level 1.9, Iron Level 103, Total Iron Binding Capacity 361, Percent Iron Saturation 29, Unsaturated Iron Binding 258, Ferritin 134, Total Bilirubin 0.6, Gamma Glutamyl Transpeptidase 206H, Aspartate Amino Transf (AST/SGOT) 79H, Alanine Aminotransferase (ALT/SGPT) 51, Alkaline Phosphatase 65, Total Creatine Kinase 203, C-Reactive Protein, Quantitative < 0.4, Pro-B-Type Natriuretic Peptide 109 , Total Protein 7.0, Albumin 3.6, Globulin 3.4, Albumin/Globulin Ratio 1.1, Lipase 207, Vitamin B12 Level 374, Folate 18.3, HIV (1&2) Antibody Rapid Negative 05/19/19 08:15: Stool Occult Blood [Pending] Height (Feet): 5 Height (Inches): 4.00 Weight (Pounds): 145 Objective WDWN NCAT Supple CTA RRR abd soft ND, near no TTP no edema Willis Chavez MD May 19, 2019 09:11
[2019-05-19] MEDS ORDERED: HydrALAZINE 25mg tab ORAL PRN (10:30)
[2019-05-19 12:00] VITALS: BP 155/101
--- NOTE | 2019-05-19 12:28 | Infectious Diseases Prog Note ---
Assessment/Plan Assessment/Plan IMPRESSION: Acute alcoholic pancreatitis, anemia, nicotine dependence, alcohol abuse. RECOMMENDATIONS: 1. Continue to observe off antibiotic. 2. negatve HIV test Subjective ROS Limited/Unobtainable: No Constitutional: Reports: no symptoms Respiratory: Reports: no symptoms Cardiovascular: Reports: no symptoms Gastrointestinal/Abdominal: Reports: other - epigstric pain with radiation to back Genitourinary: Reports: no symptoms Neurologic: Reports: no symptoms Allergies: Coded Allergies: BANANA (Verified Allergy, Unknown, 01/04/18) PENICILLINS (Verified Allergy, Unknown, 01/04/18) ASPIRIN (Verified Adverse Reaction, Unknown, 01/04/18) stomach pain Objective Vital Signs Last 24 Hour Vital Signs Date Time Temp Pulse Resp B/P (MAP) Pulse Ox O2 Delivery O2 Flow Rate FiO2 05/19/19 09:08 88 152/101 05/19/19 09:00 Room Air 05/19/19 08:00 97.8 88 16 152/101 (118) 98 05/19/19 04:45 97.9 60 18 139/80 (99) 97 05/19/19 00:07 98.3 56 18 158/96 (116) 100 05/18/19 21:00 Room Air 05/18/19 20:00 98.7 60 18 148/91 (110) 100 05/18/19 18:52 98.9 05/18/19 18:00 156/88 (110) 05/18/19 16:00 98.9 64 20 163/95 (117) 98 05/18/19 15:09 66 173/91 Height (Feet): 5 Height (Inches): 4.00 Weight (Pounds): 145 General Appearance: no acute distress HEENT: mucous membranes moist Respiratory/Chest: lungs clear Cardiovascular: normal rate Abdomen: soft, non tender Extremities: no edema Neurologic/Psychiatric: alert, oriented x 3, responsive Laboratory Tests Test 05/19/19 05:20 05/19/19 08:15 White Blood Count 4.4 K/UL (4.8-10.8) L Red Blood Count 4.47 M/UL (4.70-6.10) L Hemoglobin 10.9 G/DL (14.2-18.0) L Hematocrit 34.9 % (42.0-52.0) L Mean Corpuscular Volume 78 FL (80-99) L Mean Corpuscular Hemoglobin 24.4 PG (27.0-31.0) L Mean Corpuscular Hemoglobin Concent 31.3 G/DL (32.0-36.0) L Red Cell Distribution Width 21.2 % (11.6-14.8) H Platelet Count 213 K/UL (150-450) Mean Platelet Volume 7.8 FL (6.5-10.1) Neutrophils (%) (Auto) 40.2 % (45.0-75.0) L Lymphocytes (%) (Auto) 39.6 % (20.0-45.0) Monocytes (%) (Auto) 9.1 % (1.0-10.0) Eosinophils (%) (Auto) 9.0 % (0.0-3.0) H Basophils (%) (Auto) 2.1 % (0.0-2.0) H Sodium Level 140 MMOL/L (136-145) Potassium Level 3.4 MMOL/L (3.5-5.1) L Chloride Level 104 MMOL/L (98-107) Carbon Dioxide Level 28 MMOL/L (21-32) Anion Gap 8 mmol/L (5-15) Blood Urea Nitrogen 3 mg/dL (7-18) L Creatinine 1.0 MG/DL (0.55-1.30) Estimat Glomerular Filtration Rate > 60 mL/min (>60) Glucose Level 123 MG/DL (74-106) H Uric Acid 3.9 MG/DL (2.6-7.2) Calcium Level 8.9 MG/DL (8.5-10.1) Phosphorus Level 3.7 MG/DL (2.5-4.9) Magnesium Level 1.9 MG/DL (1.8-2.4) Iron Level 103 ug/dL (50-175) Total Iron Binding Capacity 361 ug/dL (250-450) Percent Iron Saturation 29 % (15-50) Unsaturated Iron Binding 258 ug/dL (112-346) Ferritin 134 NG/ML (8-388) Total Bilirubin 0.6 MG/DL (0.2-1.0) Gamma Glutamyl Transpeptidase 206 U/L (5-85) H Aspartate Amino Transf (AST/SGOT) 79 U/L (15-37) H Alanine Aminotransferase (ALT/SGPT) 51 U/L (12-78) Alkaline Phosphatase 65 U/L (46-116) Total Creatine Kinase 203 U/L (26-308) C-Reactive Protein, Quantitative < 0.4 mg/dL (0.00-0.90) Pro-B-Type Natriuretic Peptide 109 pg/mL (0-125) Total Protein 7.0 G/DL (6.4-8.2) Albumin 3.6 G/DL (3.4-5.0) Globulin 3.4 g/dL Albumin/Globulin Ratio 1.1 (1.0-2.7) Lipase 207 U/L (73-393) Vitamin B12 Level 374 PG/ML (193-986) Folate 18.3 NG/ML (8.6-58.9) HIV (1&2) Antibody Rapid Negative (NEGATIVE) Stool Occult Blood Pending Current Medications Medications (Trade) Dose Ordered Sig/Maryam Route PRN Reason Start Time Stop Time Status Last Admin Dose Admin Acetaminophen (Tylenol) 650 mg Q4H PRN ORAL Mild Pain/Temp > 100.5 05/17/19 23:30 06/16/19 23:29 05/19/19 00:12 Amlodipine Besylate (Norvasc) 5 mg BID ORAL 05/19/19 18:00 06/17/19 15:29 Dextrose/ Electrolytes 1,000 ml @ 75 mls/hr [id number] IV 05/18/19 12:00 06/17/19 11:59 05/19/19 00:12 Hydralazine HCl (Apresoline) 25 mg Q4H PRN ORAL bp over 160 syst 05/19/19 10:30 06/18/19 10:29 Iohexol (OMNIPAQUE-300 100ml) 100 ml NOW PRN INJ Radiology Procedure 05/17/19 19:30 05/19/19 19:26 Morphine Sulfate (Morphine Sulfate) 2 mg Q4H PRN IVP For Pain 05/17/19 23:30 05/24/19 23:29 05/18/19 22:28 Ondansetron HCl (Zofran) 4 mg Q6H PRN IVP Nausea & Vomiting 05/17/19 23:30 06/16/19 23:29 Pantoprazole (Protonix) 40 mg EVERY 12 HOURS IVP 05/18/19 21:00 06/17/19 20:59 05/19/19 09:08 Potassium Chloride (K-Dur) 40 meq DAILY ORAL 05/19/19 10:30 06/18/19 10:29 05/19/19 11:08 Arnel Alejo MD May 19, 2019 12:28
[2019-05-19 16:00] VITALS: BP 155/102
[2019-05-19 17:21] VITALS: BP 155/102
--- NOTE | 2019-05-19 18:30 | NUR ---
NURSE NOTES: Pt discharged did not want to wait for a prescription for blood pressure medication. Encouraged to follow up with primary. To incorporate low fat foods, avoid alcohol, .... Informed of risk of having untreated blood pressure. IV removed , belongings given. Family friend at bedside to take pt home.
--- NOTE | 2019-05-20 08:26 | NUR ---
CASE MANAGEMENT: INITIAL REVIEW 05/19/19 SI:PANCREATITIS. 97.8 88 16 152/101 98% ON RA H/H 10.9/34.9 K+ 3.4 IS: K-DUR PO QD NORVASC PO BID IV PROTONIX BID IV DEXTROSE @75ML/HR 3E MED SURG UNIT DCP: PATIENT TO BE DISCHARGED TO HOME ONCE MEDICALLY CLEARED.
--- NOTE | 2019-05-20 10:32 | Discharge Summary ---
Discharge Summary Discharge Summary _ DATE OF ADMISSION: 05/17/2019 DATE OF DISCHARGE: 219 05/19/2019 DISCHARGED BY: Dr Davis REASON FOR ADMISSION: 29 years old male presented to emergency department with chief complaint of abdominal pain with associated nausea and vomiting. Pain reported as epigastric, 9 out of 10, sharp and radiating to the back. Patient reported history of pancreatitis in the past. Patient reported drinking alcohol prior to presentation. He denied fever and chills. He denied chest pain. Upon evaluation blood pressure was elevated 175/97, respiratory rate was 22 . Patient remained afebrile Laboratory work-up revealed no leukocytosis, hemoglobin 11.3, hematocrit 35.1, platelet count 222. Stable electrolytes. BUN 10, creatinine 1.2. Glucose 111. AST 51, ALT 52. Albumin 3.6. Lipase 972. CT of the abdomen and pelvis demonstrated peripancreatic and pancreatic edema. Patient subsequently admitted to medical surgical floor for further management. CONSULTANTS: ID specialist Dr. Alejo GI specialist Dr. Chavez Pain specialist Dr. Mckeon [facility] COURSE: Patient admitted and started on the IV fluids. Patient initially was kept n.p.o. GI specialist followed. Pain management was addressed as per pain specialist recommendation. Symptomatic care provided. Patient was advised on cessation of alcohol. Diet was slowly advanced to low-fat as tolerated. Patient was able to tolerate diet. Antiemetic were on board as needed. Patient noted to have microcytic anemia with normal iron panel, possibly thalassemia. Stool for occult blood was negative. HIV test was nonreactive. Urine toxicology screen was positive for marijuana and opiates. Hemoglobin and hematocrit were closely monitored with goal to keep hemoglobin above 7. Prior to discharge hemoglobin 10.9 , hematocrit 34.9. GI specialist recommended outpatient hemoglobin electrophoresis to rule out thalassemia. ID specialist recommended to keep patient off antibiotics. Potassium was replaced. Magnesium remained stable. Patient clinically stabilized and was ready for discharge home. FINAL DIAGNOSES: Acute alcoholic pancreatitis -resolved Microcytic anemia Possible thalassemia Hypokalemia DISCHARGE MEDICATIONS: List of medication was sent with patient DISCHARGE INSTRUCTIONS: Patient was discharged home. Stress importance of cessation of alcohol. Follow-up with outpatient hemoglobin electrophoresis I have been assigned to dictate discharge summary for this account. I was not involved in the patient's management. Luann Grajeda NP May 20, 2019 10:32
== END 2019-05-19 18:19 | disposition home or self-care (01) | DRG 282 ==
LOC: EMR 19:19 → 3E 21:12 → EDBEDREQ 21:30
DX: K85.20 Alcohol induced acute pancreatitis without necrosis or infection (principal); F17.200 Nicotine dependence, unspecified, uncomplicated; Z88.6 Allergy status to analgesic agent; Z88.0 Allergy status to penicillin; D50.9 Iron deficiency anemia, unspecified; D56.9 Thalassemia, unspecified; E87.6 Hypokalemia; F10.10 Alcohol abuse, uncomplicated
CPT/HCPCS: 36415; 74177; 80053; 80307; 81003; 82270; 82550; 82607; 82728; 82746; 82977; 83540; 83550; 83690; 83735; 83880; 84100; 84550; 85025; 86140; 86703; 96361; 96374; 96375; 99285; J2405; J7030; J8499

== ENCOUNTER 2019-08-20 03:03 | Inpatient (IN) | payer SELFPAY ==
[~2019-08-20] VITALS: Ht 165.1 cm; Wt 68.0 kg
[~2019-08-20 03:03] MED LIST changes: +FAMOTIDINE20 MG ORAL
[2019-08-20 03:06] VITALS: BP 115/82
--- NOTE | 2019-08-20 03:06 | NUR ---
ED Nurse Note: Walk-in patient with complaints of abdominal pain acute onset about an hour ago. Patient reports drinking alot last night. IV started at left AC 20G, IV 1l N/S running. Will continue to monitor for orders.
--- NOTE | 2019-08-20 03:20 | NUR ---
ED Nurse Note: ERMD at bedside
[2019-08-20] MEDS ORDERED: Morphine Sulfate 4mg/ml Inj (IV USE ONLY) IVP ONE ×2 (03:30→05:45)
[2019-08-20] MEDS ORDERED: Pantoprazole Inj IV ONE (03:30)
--- NOTE | 2019-08-20 03:33 | Emergency Room Report ---
History of Present Illness General Chief Complaint: Abdominal Pain Source: Patient Present Illness [facility] This a 29-year-old male with a history of alcohol induced pancreatitis. He complained abdominal pain. Onset yesterday. He has abdominal pain in the upper quadrants. He has nausea and vomiting. Similar to previous episode. Vomiting is nonbloody nonbilious. Unable to keep anything down. Pain is 9 out of 10. Denies any other injury. Allergies: Coded Allergies: BANANA (Verified Allergy, Unknown, 01/04/18) PENICILLINS (Verified Allergy, Unknown, 01/04/18) ASPIRIN (Verified Adverse Reaction, Unknown, 01/04/18) stomach pain Patient History Past Medical History: see triage record, old chart reviewed Past Surgical History: other Pertinent Family History: none Social History: Reports: alcohol use Immunizations: other Reviewed Nursing Documentation: PMH: Agreed; PSxH: Agreed Nursing Documentation-PMH Past Medical History: No History, Except For Hx Cardiac Problems: No Hx Asthma: Yes Hx Cancer: No Hx Gastrointestinal Problems: Yes - pancreatitis Hx Neurological Problems: No Review of Systems Eye: Denies: eye pain, blurred vision ENT: Denies: ear pain, nose congestion, throat swelling Respiratory: Denies: cough, shortness of breath Cardiovascular: Denies: chest pain, palpitations Gastrointestinal: Reports: abdominal pain, nausea, vomiting; Denies: diarrhea Musculoskeletal: Denies: back pain, joint pain Skin: Denies: rash Neurological: Denies: headache, numbness Endocrine: Denies: increased thirst, increased urine Hematologic/Lymphatic: Denies: easy bruising All Other Systems: negative except mentioned in HPI Physical Exam Vital Signs Date Time Temp Pulse Resp B/P (MAP) Pulse Ox O2 Delivery O2 Flow Rate FiO2 08/20/19 03:06 95 16 Room Air 08/20/19 03:06 97.5 115/82 98 Vitals normal Sp02 EP Interpretation: reviewed, normal General Appearance: well appearing, no apparent distress, alert, other - Sleeping Head: normocephalic, atraumatic Eyes: bilateral eye PERRL, bilateral eye EOMI ENT: hearing grossly normal, normal pharynx Neck: full range of motion, supple, no meningismus Respiratory: chest non-tender, lungs clear, normal breath sounds Cardiovascular #1: regular rate, rhythm, no murmur Gastrointestinal: normal bowel sounds, no mass, no organomegaly, no bruit, non- distended, tenderness - Epigastric Musculoskeletal: back normal, normal range of motion, gait/station normal Psychiatric: mood/affect normal Medical Decision Making Diagnostic Impression: Primary Impression: Pancreatitis Qualified Codes: K85.20 - Alcohol induced acute pancreatitis without necrosis or infection Additional Impressions: Alcohol abuse Intractable nausea and vomiting Dehydration ER Course Presents with acute alcohol induced pancreatitis. He did get better but now pain is recurring with nausea and vomiting. Lipase is elevated. Because of his continued pain and vomiting, will admit for IV hydration and pain control. I contacted Dr. Cooper for admission. Last Vital Signs Date Time Temp Pulse Resp B/P (MAP) Pulse Ox O2 Delivery O2 Flow Rate FiO2 08/20/19 03:06 97.5 95 16 115/82 (93) 98 Room Air Status: improved Disposition: ADMITTED INPATIENT Condition: Serious Scripts No Active Prescriptions or Reported Meds Referrals: NOT CHOSEN IPA/,REFERRING (PCP) Jayson Logan MD Aug 20, 2019 03:33
[2019-08-20 03:34] LABS: HEMATOCRIT 40.6 % (42.0-52.0); MEAN CORPUSCULAR VOLUME 80 FL (80-99); PLATELET COUNT 288 K/UL (150-450); RED BLOOD COUNT 5.07 M/UL (4.70-6.10); RED CELL DISTRIBUTION WIDTH 21.6 % (11.6-14.8); WHITE BLOOD COUNT 7.5 K/UL (4.8-10.8)
[2019-08-20 03:46] LABS: ANION GAP 15 mmol/L (5-15); BLOOD UREA NITROGEN 20 mg/dL (7-18); CALCIUM 8.7 MG/DL (8.5-10.1); CARBON DIOXIDE 19 MMOL/L (21-32); CHLORIDE 105 MMOL/L (98-107); CREATININE 1.1 MG/DL (0.55-1.30); POTASSIUM 5.1 MMOL/L (3.5-5.1); SODIUM 139 MMOL/L (136-145)
[2019-08-20 03:50] LABS: ALANINE AMINOTRANSFERASE 107 U/L (12-78); ALBUMIN 3.8 G/DL (3.4-5.0); ALBUMIN/GLOBULIN RATIO 1.1 (1.0-2.7); ALKALINE PHOSPHATASE 101 U/L (46-116); ASPARTATE AMINO TRANSFERASE 63 U/L (15-37); BILIRUBIN,TOTAL 0.2 MG/DL (0.2-1.0)
[2019-08-20 04:46] LABS: APPEARANCE,URINE CLEAR; BILIRUBIN, URINE NEGATIVE (NEGATIVE); COLOR,URINE PALE YELLOW; GLUCOSE, URINE (UA) NEGATIVE (NEGATIVE); KETONES,URINE NEGATIVE (NEGATIVE); LEUKOCYTE ESTERASE ,URINE NEGATIVE (NEGATIVE); NITRITE,URINE NEGATIVE (NEGATIVE); PH,URINE 5 (4.5-8.0); UROBILINOGEN,URINE NORMAL MG/DL (0.0-1.0)
[2019-08-20 05:00] LABS: PROTEIN,URINE NEGATIVE (NEGATIVE)
[2019-08-20 05:50] VITALS: BP 121/75
--- NOTE | 2019-08-20 05:50 | NUR ---
ED Nurse Note: Pt restingin bed with eyes closed, intermittently moaning, pt denies relief from pain medication, last dose given a few minutes ago. Will continue to monitor
--- NOTE | 2019-08-20 06:30 | NUR ---
TRANSFER TO FLOOR: Patient transferred to as ordered, per Dr Davis. Report given to ELDA Jennings . Belongings and medications given to . Family and or S/O informed of transfer.
--- NOTE | 2019-08-20 08:00 | NUR ---
HAND OFF: Report given to ELDA Parisi. Late admission. Pt in stable condition. Admission work endorsed to ELDA Parisi.
--- NOTE | 2019-08-20 08:57 | Consultation ---
History of Present Illness General Date patient seen: Aug 20, 2019 Time patient seen: 08:15 - am Chief Complaint: Abdominal pain Referring physician: Susan Reason for Consultation: Pain Management Present Illness HPI The patient is a 29-year-old man with a longstanding history of alcoholism, who comes in with epigastric pain. The patient has had some nausea and vomiting, but no diarrhea. He came to the hospital where he was found to have an elevated lipase. His CT scans showed some changes in the pancreas consistent with chronic pancreatitis and the patient had previous episodes of chronic pancreatitis in the past. Allergies: Coded Allergies: BANANA (Verified Allergy, Unknown, 01/04/18) PENICILLINS (Verified Allergy, Unknown, 01/04/18) ASPIRIN (Verified Adverse Reaction, Unknown, 01/04/18) stomach pain Medication History No Active Prescriptions or Reported Meds Patient History Healthcare decision maker Resuscitation status Advanced Directive on File Patient History Narrative 1. History of asthma. 2. History of recurrent alcoholic hepatitis. Review of Systems Constitutional: Reports: no symptoms Eye: Reports: no symptoms ENT: Reports: no symptoms Respiratory: Reports: no symptoms Cardiovascular: Reports: no symptoms Gastrointestinal: Reports: abdominal pain Genitourinary: Reports: no symptoms Musculoskeletal: Reports: no symptoms Skin: Reports: no symptoms Psychiatric: Reports: no symptoms Neurological: Reports: no symptoms Endocrine: Reports: no symptoms Hematologic/Lymphatic: Reports: no symptoms Physical Exam Physical Exam Narrative GENERAL: A thin man, seen in his room. HEENT: Normocephalic and atraumatic. Sclerae anicteric. Oropharynx clear. NECK: Supple. CHEST: Clear to auscultation. CARDIOVASCULAR: Revealed a regular rate. ABDOMEN: Soft with epigastric tenderness. EXTREMITIES: Revealed no edema. Last 24 Hour Vital Signs Date Time Temp Pulse Resp B/P (MAP) Pulse Ox O2 Delivery O2 Flow Rate FiO2 08/20/19 08:07 Room Air 08/20/19 06:30 98.1 90 14 121/75 99 Room Air 08/20/19 05:50 98.1 90 14 121/75 99 Room Air 08/20/19 04:01 97.5 08/20/19 03:06 97.5 95 16 115/82 (93) 98 Room Air 08/20/19 03:06 97.5 95 16 115/82 98 Room Air 08/20/19 03:06 95 16 Room Air Intake and Output 08/19/19 08/20/19 19:00 07:00 Intake Total 0 ml Balance 0 ml Intake Oral 0 ml Laboratory Tests Test 08/20/19 03:20 White Blood Count 7.5 K/UL (4.8-10.8) Red Blood Count 5.07 M/UL (4.70-6.10) Hemoglobin 13.0 G/DL (14.2-18.0) L Hematocrit 40.6 % (42.0-52.0) L Mean Corpuscular Volume 80 FL (80-99) Mean Corpuscular Hemoglobin 25.5 PG (27.0-31.0) L Mean Corpuscular Hemoglobin Concent 31.9 G/DL (32.0-36.0) L Red Cell Distribution Width 21.6 % (11.6-14.8) H Platelet Count 288 K/UL (150-450) Mean Platelet Volume 8.1 FL (6.5-10.1) Neutrophils (%) (Auto) % (45.0-75.0) Lymphocytes (%) (Auto) % (20.0-45.0) Monocytes (%) (Auto) % (1.0-10.0) Eosinophils (%) (Auto) % (0.0-3.0) Basophils (%) (Auto) % (0.0-2.0) Urine Color Pale yellow Urine Appearance Clear Urine pH 5 (4.5-8.0) Urine Specific [place] 1.025 (1.005-1.035) Urine Protein Negative (NEGATIVE) Urine Glucose (UA) Negative (NEGATIVE) Urine Ketones Negative (NEGATIVE) Urine Blood Negative (NEGATIVE) Urine Nitrite Negative (NEGATIVE) Urine Bilirubin Negative (NEGATIVE) Urine Urobilinogen Normal MG/DL (0.0-1.0) Urine Leukocyte Esterase Negative (NEGATIVE) Sodium Level 139 MMOL/L (136-145) Potassium Level 5.1 MMOL/L (3.5-5.1) Chloride Level 105 MMOL/L (98-107) Carbon Dioxide Level 19 MMOL/L (21-32) L Anion Gap 15 mmol/L (5-15) Blood Urea Nitrogen 20 mg/dL (7-18) H Creatinine 1.1 MG/DL (0.55-1.30) Estimat Glomerular Filtration Rate > 60 mL/min (>60) Glucose Level 147 MG/DL (74-106) H Calcium Level 8.7 MG/DL (8.5-10.1) Total Bilirubin 0.2 MG/DL (0.2-1.0) Aspartate Amino Transf (AST/SGOT) 63 U/L (15-37) H Alanine Aminotransferase (ALT/SGPT) 107 U/L (12-78) H Alkaline Phosphatase 101 U/L (46-116) Total Protein 7.4 G/DL (6.4-8.2) Albumin 3.8 G/DL (3.4-5.0) Globulin 3.6 g/dL Albumin/Globulin Ratio 1.1 (1.0-2.7) Lipase 578 U/L (73-393) H Height (Feet): 5 Height (Inches): 5.00 Weight (Pounds): 150 Assessment/Plan Assessment/Plan: (1) Abdominal pain (2) Pancreatitis (3) Alcohol abuse (4) Alcohol withdrawal Patient will be started on Dilaudid 0.5mg IV Q4H PRN severe pain and Ativan 1mg PO 1 tab Q6H PRN anxiety. D/w Dr. Mckeon and he concurred. Alexander Mallory Aug 20, 2019 08:57
[2019-08-20] MEDS ORDERED: Hydromorphone 0.5mg/0.5ml inj IVP PRN (09:15)
[2019-08-20] MEDS ORDERED: LORazepam 1mg tab ORAL PRN (09:15)
[2019-08-20] MEDS: Thiamine 100mg tab ORAL SCH (09:30)
[2019-08-20 12:00] VITALS: BP 177/103
[2019-08-20] MEDS ORDERED: HYDROmorphone 1mg/ml Carpuject IVPB PRN (12:15)
--- NOTE | 2019-08-20 12:30 | NUR ---
NURSE NOTES:DR. BROWN NOTIFIED RE:PT. C/O CHEST PAIN AND HIGH BP:177/103, STATED TO CALL DR. STONE.PT.C/O ALSO THAT PAIN MED IS NOT HELPING HIM,BLAYNE(MARKY) FOR DR. KAHN AWARE,NEW ORDERS CARRIED OUT.PAIN REGIMEN DISCUSSED WITH PT.
[2019-08-20] MEDS: HYDROmorphone 1 MG in NS 55 ML IVPB PRN ×3 (13:16→21:59)
--- NOTE | 2019-08-20 15:25 | Cardiac Electrophysiology PN ---
Subjective Subjective [id number] Objective Last 24 Hour Vital Signs Date Time Temp Pulse Resp B/P (MAP) Pulse Ox O2 Delivery O2 Flow Rate FiO2 08/20/19 12:00 97.4 80 18 177/103 (127) 97 08/20/19 09:00 Room Air 08/20/19 08:07 Room Air 08/20/19 06:30 98.1 90 14 121/75 99 Room Air 08/20/19 05:50 98.1 90 14 121/75 99 Room Air 08/20/19 04:01 97.5 08/20/19 03:06 97.5 95 16 115/82 (93) 98 Room Air 08/20/19 03:06 97.5 95 16 115/82 98 Room Air 08/20/19 03:06 95 16 Room Air Intake and Output 08/19/19 08/20/19 19:00 07:00 Intake Total 0 ml Balance 0 ml Intake Oral 0 ml Laboratory Tests Test 08/20/19 03:20 White Blood Count 7.5 K/UL (4.8-10.8) Red Blood Count 5.07 M/UL (4.70-6.10) Hemoglobin 13.0 G/DL (14.2-18.0) L Hematocrit 40.6 % (42.0-52.0) L Mean Corpuscular Volume 80 FL (80-99) Mean Corpuscular Hemoglobin 25.5 PG (27.0-31.0) L Mean Corpuscular Hemoglobin Concent 31.9 G/DL (32.0-36.0) L Red Cell Distribution Width 21.6 % (11.6-14.8) H Platelet Count 288 K/UL (150-450) Mean Platelet Volume 8.1 FL (6.5-10.1) Neutrophils (%) (Auto) % (45.0-75.0) Lymphocytes (%) (Auto) % (20.0-45.0) Monocytes (%) (Auto) % (1.0-10.0) Eosinophils (%) (Auto) % (0.0-3.0) Basophils (%) (Auto) % (0.0-2.0) Urine Color Pale yellow Urine Appearance Clear Urine pH 5 (4.5-8.0) Urine Specific [place] 1.025 (1.005-1.035) Urine Protein Negative (NEGATIVE) Urine Glucose (UA) Negative (NEGATIVE) Urine Ketones Negative (NEGATIVE) Urine Blood Negative (NEGATIVE) Urine Nitrite Negative (NEGATIVE) Urine Bilirubin Negative (NEGATIVE) Urine Urobilinogen Normal MG/DL (0.0-1.0) Urine Leukocyte Esterase Negative (NEGATIVE) Sodium Level 139 MMOL/L (136-145) Potassium Level 5.1 MMOL/L (3.5-5.1) Chloride Level 105 MMOL/L (98-107) Carbon Dioxide Level 19 MMOL/L (21-32) L Anion Gap 15 mmol/L (5-15) Blood Urea Nitrogen 20 mg/dL (7-18) H Creatinine 1.1 MG/DL (0.55-1.30) Estimat Glomerular Filtration Rate > 60 mL/min (>60) Glucose Level 147 MG/DL (74-106) H Calcium Level 8.7 MG/DL (8.5-10.1) Total Bilirubin 0.2 MG/DL (0.2-1.0) Aspartate Amino Transf (AST/SGOT) 63 U/L (15-37) H Alanine Aminotransferase (ALT/SGPT) 107 U/L (12-78) H Alkaline Phosphatase 101 U/L (46-116) Total Protein 7.4 G/DL (6.4-8.2) Albumin 3.8 G/DL (3.4-5.0) Globulin 3.6 g/dL Albumin/Globulin Ratio 1.1 (1.0-2.7) Lipase 578 U/L (73-393) H Gilbert Galvan MD Aug 20, 2019 15:25
--- NOTE | 2019-08-20 15:28 | NUR ---
NURSE NOTES:SEEN BY DR. STONE,AWARE RE: EKG RESULT AND BPS RANGING FR.172-178/103-109,ORDERS CARRIED OUT. WILL CONTINUE TO MONITOR
[2019-08-20 16:00] VITALS: BP 180/120
[2019-08-20] MEDS: Lisinopril 10mg tab ORAL SCH (17:45)
--- NOTE | 2019-08-20 17:45 | Consultation ---
DATE OF CONSULTATION: 08/20/2019 GASTROENTEROLOGY CONSULTATION CONSULTING PHYSICIAN: Willis Chavez M.D. CHIEF COMPLAINT: I was asked to see this patient by Dr. Jessy Tam for evaluation of pancreatitis. HISTORY OF PRESENT ILLNESS: The patient is a 29-year-old man with a longstanding history of alcoholism, who comes in with epigastric pain. The patient has had some nausea and vomiting, but no diarrhea. He came to the hospital where he was found to have an elevated lipase. His CT scans showed some changes in the pancreas consistent with chronic pancreatitis and the patient had previous episodes of chronic pancreatitis in the past. PAST MEDICAL HISTORY: 1. History of asthma. 2. History of recurrent alcoholic hepatitis. FAMILY HISTORY: Noncontributory. SOCIAL HISTORY: The patient is single. He has no children. He smokes cigarettes and he drinks a pint of hard liquor daily. REVIEW OF SYSTEMS: Otherwise negative. PHYSICAL EXAMINATION: GENERAL: A thin man, seen in his room. HEENT: Normocephalic and atraumatic. Sclerae anicteric. Oropharynx clear. NECK: Supple. CHEST: Clear to auscultation. CARDIOVASCULAR: Revealed a regular rate. ABDOMEN: Soft with epigastric tenderness. EXTREMITIES: Revealed no edema. LABORATORY DATA: Noted. ASSESSMENT: This patient presents with mild elevation in lipase and epigastric tenderness. CT findings done, which were suggestive of recurrent alcoholic pancreatitis. The patient also had some abnormal liver tests, which are likely due to alcoholism, although today he is not typical. Hepatitis B and C serologies can be checked, especially in the view of the patient's multiple tattoos and the possibility of liver failure and hepatitis. The patient was strongly advised to discontinue the smoking and drinking on a long-term basis. RECOMMENDATIONS: 1. NPO today, but advance to clear liquids soon. 2. Pain control. 3. Follow laboratory findings as above. 4. Discontinue alcohol and smoking. 5. Check hepatitis serologies. Thank you for asking me to participate in the care of this patient. Willis Chavez M.D. DR: KENJI JOB#: [id number] CC:
[2019-08-20 18:45] VITALS: BP 173/113
--- NOTE | 2019-08-20 18:45 | NUR ---
NURSE NOTES:BP:173/113, AFTER BP.MEDS.PT.CLAIMS PAIN LEVEL 4/10,NO C/O CHEST PAIN.WILL MONITOR.
--- NOTE | 2019-08-20 19:25 | NUR ---
HAND-OFF: Report given to TATUM [place].PT.STABLE.ENDORSED RE:LATEST BLOOD PRESSURE..
[2019-08-20 20:00] VITALS: BP 135/87
--- NOTE | 2019-08-20 20:18 | NUR ---
NURSES NOTE: Pt in bed, A/OX4, denies pain currently. No outward s/s of distress noted. Breathing is even and unlabored on RA. 2000 BP within normal limits. All due meds will be given. Bed at lowest level. Call light within reach. Pt will continue to be monitored.
--- NOTE | 2019-08-20 23:00 | History and Physical Report ---
DATE OF ADMISSION: 08/20/2019 HISTORY OF PRESENT ILLNESS: The patient is admitted for alcoholic pancreatitis. Has chronic pancreatitis. Had several admissions for the same. Has intractable abdominal pain and vomiting for the past 2 days. No hematemesis. No diarrhea. Denies shortness of breath. Denies cough symptoms. Denies fever or chills. PAST MEDICAL HISTORY: Has alcohol chronic pancreatitis due to alcohol abuse. Has alcohol abuse. MEDICATIONS: None. PAST SURGICAL HISTORY: Left ankle surgery. FAMILY HISTORY: Noncontributory. SOCIAL HISTORY: Has history of smoking. History of alcohol abuse. Denies history of drug abuse. MEDICATIONS: None. ALLERGIES: To bananas, penicillin, and aspirin. REVIEW OF SYSTEMS: HEENT: Denies headaches. RESPIRATORY: Denies shortness of breath. Denies cough. CARDIOVASCULAR: Denies chest pain. GASTROINTESTINAL: Does have vomiting for past 2 days. Abdominal pain for 2 days. No constipation. No hematemesis. EXTREMITIES: Denies pain in lower extremities. CENTRAL NERVOUS SYSTEM: Denies change in speech pattern. PHYSICAL EXAMINATION: VITAL SIGNS: Temperature is 97.4, pulse is 80, blood pressure is 177/103. HEENT: PERRLA. NECK: Supple. No lymphadenopathy. CHEST: Clear to auscultation. CARDIOVASCULAR: Regular rate and rhythm. No murmurs or extra sounds. GASTROINTESTINAL: Does have epigastric tenderness. No rebound. Abdomen is soft. No organomegaly. EXTREMITIES: No edema. Moves all four extremities. Sensory intact to light touch. Reflexes equal on both sides. LABORATORY AND DIAGNOSTIC DATA: WBC of 7.5, hemoglobin of 13, platelets 288. Sodium 139, potassium 5.1, BUN of 20, creatinine 1.1, glucose 147. AST of 63, ALT of 107. Lipase of 578. ASSESSMENT AND PLAN: Chronic pancreatitis, acute flare of pancreatitis due to alcohol abuse, elevated LFTs also due to alcohol abuse. I have asked Dr. Galvan, Dr. Sotelo, Dr. Etienne, and Dr. Mckeon see the patient to rule out for alcohol withdrawal as well as for the management of chronic pancreatitis. We need to watch for seizure withdrawal as well as DTs. We need to monitor for that very closely with the patient's history of alcohol abuse. Jessy Davis M.D. DR: TOI JOB#: [id number] CC:
[2019-08-21] VITALS: BP 126/80
[2019-08-21] MEDS: HYDROmorphone 1 MG in NS 55 ML IVPB PRN (02:38)
[2019-08-21 04:00] VITALS: BP 110/77
--- NOTE | 2019-08-21 07:47 | NUR ---
HAND OFF: Report given to ELDA Noble. Patient in stable condition.
[2019-08-21 08:00] VITALS: BP 115/77
--- NOTE | 2019-08-21 08:45 | Consultation ---
DATE OF CONSULTATION: 08/20/2019 CARDIOLOGY CONSULTATION CONSULTING PHYSICIAN: Gilbert Galvan M.D. REFERRING PHYSICIAN: Jessy Davis M.D. REASON FOR CONSULTATION: Chest pain. HISTORY OF PRESENT ILLNESS: The patient is a 29-year-old gentleman with history of alcohol-induced pancreatitis, who was admitted with abdominal pain. The patient also noted to be hypertensive. The pain was abdominal pain in upper quadrants. Had nausea and vomiting. The patient was not able to keep anything down. REVIEW OF SYSTEMS: Review of systems was negative other than what is mentioned in the history of present illness. PAST MEDICAL HISTORY: As mentioned above. ALLERGIES: He is allergic to banana, penicillin, and aspirin. FAMILY HISTORY: Noncontributory. SOCIAL HISTORY: He admits to using cocaine just couple days ago and drinks alcohol. PHYSICAL EXAMINATION: VITAL SIGNS: Show blood pressure of 177/103, pulse is 80, respirations is 18, and temperature 97.4. HEAD AND NECK: Showed no jugular venous distention. LUNGS: Clear. CARDIOVASCULAR: Shows regular S1 and S2 with no gallop or murmur. ABDOMEN: Soft. EXTREMITIES: No pitting edema. LABORATORY DATA: Labs show white count of 7.5, hemoglobin 13, hematocrit of 40, and platelet count of 288,000. Sodium 139, potassium 5.1, BUN of 20, creatinine 1.1, and glucose of 147. Lipase is 578. Urinalysis is negative. ASSESSMENT AND PLAN: 1. Accelerated hypertension. I will start the patient on lisinopril 10 mg b.i.d. and add p.r.n. clonidine. 2. Heavy alcohol use, on thiamine and folate. 3. Pancreatitis. 4. Substance abuse with cocaine 01:51 urine toxicology screen. Thank you very much for allowing me to participate in the care of this patient. Please do not hesitate to contact me for any questions regarding my evaluation. Gilbert Galvan M.D. DR: VLADIMIR JOB#: [id number] CC:
[2019-08-21] MEDS: Lisinopril 10mg tab ORAL SCH (09:00)
[2019-08-21] MEDS: Thiamine 100mg tab ORAL SCH (09:00)
--- NOTE | 2019-08-21 09:12 | NUR ---
NURSE NOTES: Patient states he wants to leave AMA. Pt signed AMA form, IV removed, notified DR Davis.
--- NOTE | 2019-08-21 09:19 | NUR ---
NURSE NOTES: Called Dr alexander and s/w with Magali at office.
--- NOTE | 2019-08-21 09:40 | NUR ---
NURSE NOTES: Called Dr Etienne to notify pt left AMA
--- NOTE | 2019-08-21 11:47 | NUR ---
CASE MANAGEMENT:INITIAL REVIEW 29YR OLD MALE FROM HOME CC: ABD PAIN SI:PANCREATITIS . ALCOHOL ABUSE INTRACTABLE N/V DEHYDRATION 97.5 95 16 115/82 98% ON RA LIPASE 578 CO2-19 BUN 20 BG 147 AST\ALT 63/107 (+) COCAINE (+) BENZO IS:IV NS BOLUS X2 IV ZOFRAN X1 IV PROTONIX X1 IV MORPHINE SULFATE X2 \: 3E MED SURG UNIT DCP: HOME WHEN STABLE PLAN: EKG NPO NOW - ADVANCE DIET TOLERATED IN AM
--- NOTE | 2019-08-23 13:13 | Discharge Summary ---
Discharge Summary Discharge Summary _ DATE OF ADMISSION: 08/20/2019 DATE OF DISCHARGE: 08/21/2019 Patient left AGAINST MEDICAL ADVICE REASON FOR ADMISSION: 29 years old male with a history of alcohol induced pancreatitis , presented to emergency room complaining of abdominal pain for 1 day. Pain was localized in upper quadrants with associated nausea and vomiting. This episode was similar to his previous episodes. Vomiting reported as nonbloody and nonbilious. Patient was unable to tolerate any food . Pain reported at 8 out of 10 on a scale 1-10. Upon evaluation laboratory work-up revealed no leukocytosis, stable hemoglobin , hematocrit and platelet count. Glucose 147. AST 63 , ALT 107. Lipase 578. Urine toxicology screen was positive for cocaine and benzodiazepine. Urinalysis revealed no evidence of urinary tract infection. Patient subsequently admitted for pancreatitis. CONSULTANTS: physical sciences professor Dr. Viveros GI specialist Dr. Chavez pain specialist Dr. Mckeon [facility]RSE: [] Patient admitted and initially was kept n.p.o. Pain management was addressed as per pain specialist recommendations. Patient started on GI prophylaxis. Antiemetic were on board as needed. Patient started on folate and thiamine. Patient was counseled on abstinence from ETOH . GI specialist recommended advance soon to clear liquid diet and check hepatitis serology. Patient subsequently was started in clear liquids diet and was able to tolerate it. Cardiology seen patient for accelerated hypertension, 177/103. Patient was started on LUZ inhibitor and clonidine was added for blood pressure spikes as needed. Blood pressure stabilized, and prior to signing AMA - 115/77. Anxiolytic were on board as needed. Patient was counseled on abstinence from illicit street drugs. Supportive care provided. Patient decided to leave AGAINST MEDICAL ADVICE. The risks and consequences of signing AGAINST MEDICAL ADVICE were discussed with patient in detail. Patient verbalized understanding, nevertheless signed AMA form and left. FINAL DIAGNOSES: Alcoholic pancreatitis, acute on chronic Accelerated hypertension Heavy alcohol use Substance abuse/cocaine Dehydration I have been assigned to dictate discharge summary for this account. I was not involved in the patient's management. Luann Grajeda NP Aug 23, 2019 13:13
== END 2019-08-21 10:09 | disposition left against medical advice (07) | DRG 440 ==
LOC: EMR 03:18 → EDBEDREQ 06:11 → 3E 06:15
DX: K85.20 Alcohol induced acute pancreatitis without necrosis or infection (principal); F10.10 Alcohol abuse, uncomplicated; Z88.6 Allergy status to analgesic agent; Z88.0 Allergy status to penicillin; F17.200 Nicotine dependence, unspecified, uncomplicated; F14.10 Cocaine abuse, uncomplicated; I10 Essential (primary) hypertension; E86.0 Dehydration
CPT/HCPCS: 36415; 80053; 80307; 81003; 83690; 85025; 93005; 96361; 96374; 96375; 96376; 99285; J2405; J7030

== ENCOUNTER 2019-11-05 15:11 | Inpatient (IN) | payer SELFPAY ==
[~2019-11-05] VITALS: Ht 170.2 cm; Wt 64.6 kg
--- NOTE | 2019-11-05 15:16 | NUR ---
ED Nurse Note: PT brought in by RA 29 from home for left abd pain that radiates to his back area since 5 hours ago. denies n/v/d. Addendum: 11/05/19 at 1643 by ZULEMA ED Nurse Note: PT brought in by RA 29 from home for left abd pain that radiates to his back area since 5 hours ago. pt reports vomitting x 1 this AM. denies diarrhea.
[2019-11-05 15:17] VITALS: BP 138/96
--- NOTE | 2019-11-05 15:38 | NUR ---
ED Nurse Note: IV access established, blood sample collected. pt unable to provide urine at this time.
[2019-11-05] MEDS ORDERED: Omnipaque-300 100ml vial INJ PRN (15:45)
[2019-11-05] MEDS ORDERED: Ketorolac 30mg Inj IV ONE (15:45)
[2019-11-05 15:55] LABS: BASOPHILS % (AUTO) 1.6 % (0.0-2.0); EOSINOPHILS % (AUTO) 1.1 % (0.0-3.0); HEMATOCRIT 40.7 % (42.0-52.0); HEMOGLOBIN 12.3 G/DL (14.2-18.0); LYMPHOCYTES % (AUTO) 20.1 % (20.0-45.0); MEAN CORPUSCULAR VOLUME 86 FL (80-99); MONOCYTES % (AUTO) 4.5 % (1.0-10.0); NEUTROPHILS % (AUTO) 72.7 % (45.0-75.0); PLATELET COUNT 245 K/UL (150-450); RED BLOOD COUNT 4.71 M/UL (4.70-6.10); RED CELL DISTRIBUTION WIDTH 20.6 % (11.6-14.8); WHITE BLOOD COUNT 10.2 K/UL (4.8-10.8)
[2019-11-05 16:00] LABS: ANION GAP 12 mmol/L (5-15); BLOOD UREA NITROGEN 16 mg/dL (7-18); CALCIUM 8.9 MG/DL (8.5-10.1); CARBON DIOXIDE 25 MMOL/L (21-32); CHLORIDE 102 MMOL/L (98-107); CREATININE 1.2 MG/DL (0.55-1.30); POTASSIUM 3.5 MMOL/L (3.5-5.1); SODIUM 139 MMOL/L (136-145)
[2019-11-05 16:11] LABS: ALANINE AMINOTRANSFERASE 97 U/L (12-78); ALBUMIN 3.8 G/DL (3.4-5.0); ALBUMIN/GLOBULIN RATIO 1.2 (1.0-2.7); ALKALINE PHOSPHATASE 77 U/L (46-116); ASPARTATE AMINO TRANSFERASE 52 U/L (15-37); BILIRUBIN,TOTAL 0.4 MG/DL (0.2-1.0); CREATINE KINASE 144 U/L (26-308)
--- NOTE | 2019-11-05 16:17 | NUR ---
ED Nurse Note: pt in bed resting, no acute distress is noted. pt still unable to ptovide urine sample.
--- NOTE | 2019-11-05 16:42 | NUR ---
ED Nurse Note: patient started to vomit x2. ERPA made aware, IV zofran give.
--- NOTE | 2019-11-05 16:53 | NUR ---
ED Nurse Note: pt taken to ct
[2019-11-05 17:01] VITALS: BP 140/88
--- NOTE | 2019-11-05 17:20 | NUR ---
ED Nurse Note: pt back from ct
--- NOTE | 2019-11-05 17:27 | Diagnostic Imaging Report ---
EXAM: CT Abdomen and Pelvis With Intravenous Contrast CLINICAL HISTORY: PAIN TECHNIQUE: Axial computed tomography images of the abdomen and pelvis with intravenous contrast. CTDI is 3.7 mGy and DLP is 181.9 mGy-cm. One or more of the following dose reduction techniques were used: automated exposure control, adjustment of the mA and/or kV according to patient size, use of iterative reconstruction technique. COMPARISON: CT abdomen/pelvis on 06/15/2019 FINDINGS: Lung bases: Unremarkable. No mass. No consolidation. Mediastinum: Small hiatal hernia. Prominence of the wall of the distal esophagus is suggestive of esophagitis. ABDOMEN: Liver: Unremarkable. No mass. Gallbladder and bile ducts: Unremarkable. No calcified stones. No ductal dilation. Pancreas: Peripancreatic fluid, concerning for acute pancreatitis. Please correlate with lipase levels. No fluid collection or pseudocyst. No ductal dilation. Spleen: Unremarkable. No splenomegaly. Adrenals: Unremarkable. No mass. Kidneys and ureters: No hydronephrosis or obstructing stone. Stomach and bowel: Prominence of the wall of the stomach may be secondary to under distention versus gastritis. Wall thickening of the rectum and colon may be exaggerated by under distention versus colitis. Diverticulosis. PELVIS: Appendix: Normal appendix. Bladder: Mild prominence of the bladder wall is nonspecific. Please correlate with urinalysis to evaluate for cystitis. Reproductive: Unremarkable as visualized. ABDOMEN and PELVIS: Intraperitoneal space: Unremarkable. No free air. No significant fluid collection. Bones/joints: No acute fracture. No dislocation. Soft tissues: Unremarkable. Vasculature: Unremarkable. No abdominal aortic aneurysm. Lymph nodes: Unremarkable. No enlarged lymph nodes. IMPRESSION: 1. Small hiatal hernia. Prominence of the wall of the distal esophagus is suggestive of esophagitis. 2. Prominence of the wall of the stomach may be secondary to under distention versus gastritis. 3. Wall thickening of the rectum and colon may be exaggerated by under distention versus colitis. 4. Peripancreatic fluid, concerning for acute pancreatitis. Please correlate with lipase levels. No fluid collection or pseudocyst. 5. Mild prominence of the bladder wall is nonspecific. Please correlate with urinalysis to evaluate for cystitis.
--- NOTE | 2019-11-05 17:41 | Emergency Room Report ---
History of Present Illness General Chief Complaint: Abdominal Pain Source: EMS ([place] Roy) Present Illness HPI 29-year-old male with no signal past medical history here complaining of sudden onset of epigastric and left upper quadrant pain that started last night radiating to mid back. Rates the pain 10 out of 10 with radiation to the back. Complains of nausea vomiting however denies diarrhea constipation. Denies bloody emesis. Denies any alcohol consumption, tobacco smoke, drug use. Denies fever and chills, cough or congestion, shortness of breath. Has not taken medication for symptom relief. 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 HAND: No ([place] Roy) Patient History Past Medical History: see triage record Past Surgical History: none Pertinent Family History: none Immunizations: UTD Reviewed Nursing Documentation: PMH: Agreed; PSxH: Agreed ([place] Roy) Nursing Documentation-PMH Past Medical History: No History, Except For Hx Cardiac Problems: No Hx Asthma: Yes Hx Cancer: No Hx Gastrointestinal Problems: Yes - pancreatitis Hx Neurological Problems: No ([place] Roy) Review of Systems All Other Systems: negative except mentioned in HPI ([place] Roy) Physical Exam Vital Signs Date Time Temp Pulse Resp B/P (MAP) Pulse Ox O2 Delivery O2 Flow Rate FiO2 11/05/19 15:13 99.3 70 16 140/96 (111) 98 Room Air Sp02 EP Interpretation: reviewed, normal General Appearance: alert, mild distress Head: normocephalic, atraumatic ENT: hearing grossly normal, normal pharynx, no angioedema, normal voice Neck: full range of motion, supple/symm/no masses Respiratory: chest non-tender, lungs clear, normal breath sounds, speaking full sentences Cardiovascular #1: regular rate, rhythm, no edema Gastrointestinal: normal bowel sounds, non tender, soft, non-distended, no guarding, no rebound Genitourinary: no CVA tenderness Musculoskeletal: back normal Neurologic: alert, motor strength/tone normal, oriented x3, sensory intact, responsive, speech normal Psychiatric: judgement/insight normal, memory normal, mood/affect normal, no suicidal/homicidal ideation Skin: no rash Lymphatic: no adenopathy ([place] Roy) Medical Decision Making PA Attestation All my diagnosis and treatment plans were reviewed ad discussed with my supervising physician Dr. Hassan ([place] [facility]) Diagnostic Impression: Primary Impression: Acute pancreatitis ER Course 29-year-old male with no signal past medical history here complaining of sudden onset of epigastric and left upper quadrant pain that started last night radiating to mid back. Rates the pain 10 out of 10 with radiation to the back. Complains of nausea vomiting however denies diarrhea constipation. Denies bloody emesis. Denies any alcohol consumption, tobacco smoke, drug use. Denies fever and chills, cough or congestion, shortness of breath. Has not taken medication for symptom relief. Ddx considered but are not limited to: appendicitis, cholecystis, gastritis, gastroenteritis, UTI, pyelonephritis, SBO, diverticulitis, influenza with GI manifestation, pancreatitis Vital signs: are WNL, pt. is afebrile H&PE are most consistent with: Acute pancreatitis ORDERS: abdominal CT, abdominal pain set, ED INTERVENTIONS: NS bolus, Zofran, Phenergan, Toradol, morphine, Pepcid Patient was admitted with diagnosis of acute pancreatitis to Dr. Parmar under supervision of : Mo pt stable at time of admission ([place] Roy) ER Course patient seen and evaluate by MARKY Roy. Please see her note for full history and physical Patient work-up and evaluation discussed with me. I agree with findings and treatment plan and admission. I endorsed to admitting physician (Red Hassan MD) CT/MRI/US Diagnostic Results CT/MRI/US Diagnostic Results : Imaging Test Ordered: CT abdomen pelvis with contrast Impression Acute pancreatitis ([place] Roy) Last Vital Signs Date Time Temp Pulse Resp B/P (MAP) Pulse Ox O2 Delivery O2 Flow Rate FiO2 11/05/19 15:17 99.3 75 16 138/96 98 Room Air ([place] Roy) Disposition: ADMITTED INPATIENT Condition: Stable Referrals: NOT CHOSEN IPA/,REFERRING (PCP) [place] November 05, 2019 17:41 Red Hassan MD November 05, 2019 19:35
[2019-11-05] MEDS ORDERED: Morphine Sulfate 2mg/ml Inj(IV/IM USE ONLY) IVP ONE (17:45)
[2019-11-05] MEDS ORDERED: ALBUTEROL2.5 MG/3 M INH (17:48)
--- NOTE | 2019-11-05 19:31 | NUR ---
ED Nurse Note: Report given to ELDA Linn.
--- NOTE | 2019-11-05 19:32 | NUR ---
ED Nurse Note: Patient unable to give urine sample, ERMD aware.
--- NOTE | 2019-11-05 19:35 | NUR ---
TRANSFER TO FLOOR: Patient transferred to med surg as ordered, per ERMD. Report given to ELDA Linn. Patient transported via gurney in stable condition accompanied by dental technology advisor.
--- NOTE | 2019-11-05 20:00 | NUR ---
NURSE NOTES: Received patient on bed, awake and verbally responsive. on room air. no sob. with iv line on the right ac, saline lock. with compalints of pain of 3/10 on the abdomen. per patient "its bearable". all belongings on the bedside. he uses the bathroom. offered urinal. no skin issues. reiterated to call and ask for assistance. call light and light button within easy reach. will call the md for admission orders.
--- NOTE | 2019-11-05 20:10 | NUR ---
NURSE NOTES: paged dr. alexander for admission orders, went through voicemail, left a message. urine was collected and given to the lab as part of the ER orders. charge nurse made aware.
[2019-11-05] MEDS ORDERED: Albuterol ud Inhalation HHN PRN (21:00)
--- NOTE | 2019-11-05 21:00 | NUR ---
received a called back from dr alexander for admission orders. charge nurse made aware. Addendum: 11/05/19 at 2155 by Marcy Castellanos RN NURSE NOTES: dr. chavez informed regarding the result of drug screen and he's positive for marijuana.charge nurse made aware
[2019-11-05 21:13] LABS: BILIRUBIN, URINE NEGATIVE (NEGATIVE); COLOR,URINE PALE YELLOW; GLUCOSE, URINE (UA) NEGATIVE (NEGATIVE); KETONES,URINE 1+ (NEGATIVE); LEUKOCYTE ESTERASE ,URINE 1+ (NEGATIVE); NITRITE,URINE NEGATIVE (NEGATIVE); PH,URINE 5 (4.5-8.0); PROTEIN,URINE 1+ (NEGATIVE); UROBILINOGEN,URINE NORMAL MG/DL (0.0-1.0)
[2019-11-05 21:14] LABS: APPEARANCE,URINE SLIGHTLY CLOUDY
--- NOTE | 2019-11-05 21:20 | NUR ---
NURSE NOTES: paged DR. Bocanegra regarding the c/o pain on the abdomen rated as 8/10. received an order to have dilaudid 1mg q4h prn for pain. verified to the patient if he has allergy on dilaudid, per pateint" i have no allergy to dilaudid. administered the medicine.charge nurse made aware.
[2019-11-05] MEDS: HYDROmorphone 1mg/ml Carpuject IVP PRN (21:33)
[2019-11-06] VITALS: BP 121/69
--- NOTE | 2019-11-06 00:18 | NUR ---
NURSE NOTES: Patient is complaining of pain on the abdomen, patient made aware that dilaudid is not due yet. patient wants to take tylenol. tylenol given
[2019-11-06] MEDS: HYDROmorphone 1mg/ml Carpuject IVP PRN ×7 (01:50→23:34)
--- NOTE | 2019-11-06 01:50 | NUR ---
NURSE NOTES: PATIENTstill complaints of pain.per patient" i want the dilaudid". administered ivp meds as with an order from
[2019-11-06 04:00] VITALS: BP 125/67
--- NOTE | 2019-11-06 07:22 | NUR ---
HAND-OFF: Report given to ROSANNE SYED RN.
[2019-11-06 07:57] LABS: BASOPHILS % (AUTO) 1.4 % (0.0-2.0); EOSINOPHILS % (AUTO) 4.7 % (0.0-3.0); HEMATOCRIT 35.7 % (42.0-52.0); HEMOGLOBIN 11.8 G/DL (14.2-18.0); LYMPHOCYTES % (AUTO) 19.8 % (20.0-45.0); MEAN CORPUSCULAR VOLUME 82 FL (80-99); MONOCYTES % (AUTO) 7.9 % (1.0-10.0); NEUTROPHILS % (AUTO) 66.3 % (45.0-75.0); PLATELET COUNT 204 K/UL (150-450); RED BLOOD COUNT 4.38 M/UL (4.70-6.10); RED CELL DISTRIBUTION WIDTH 18.1 % (11.6-14.8); WHITE BLOOD COUNT 8.6 K/UL (4.8-10.8)
[2019-11-06 08:00] VITALS: BP 129/69
--- NOTE | 2019-11-06 08:00 | NUR ---
NURSE NOTES: Patient eyes closed , awake and alert and oriented when name called,respirations unlabored.IV fluids infusing as ordered.Patient is NPO ,no complaints at this time,call light within reach.
[2019-11-06 08:09] LABS: ALANINE AMINOTRANSFERASE 67 U/L (12-78); ALBUMIN 3.1 G/DL (3.4-5.0); ALBUMIN/GLOBULIN RATIO 1.2 (1.0-2.7); ALKALINE PHOSPHATASE 58 U/L (46-116); ANION GAP 11 mmol/L (5-15); ASPARTATE AMINO TRANSFERASE 30 U/L (15-37); BILIRUBIN,TOTAL 0.8 MG/DL (0.2-1.0); BLOOD UREA NITROGEN 14 mg/dL (7-18); CALCIUM 8.4 MG/DL (8.5-10.1); CARBON DIOXIDE 24 MMOL/L (21-32); CHLORIDE 105 MMOL/L (98-107); CREATININE 1.1 MG/DL (0.55-1.30); POTASSIUM 3.2 MMOL/L (3.5-5.1); SODIUM 140 MMOL/L (136-145)
--- NOTE | 2019-11-06 10:19 | NUR ---
CHARGE NURSE NOTE: K-3.2. was called, message left.
[2019-11-06 12:00] VITALS: BP 121/80
--- NOTE | 2019-11-06 12:12 | NUR ---
CASE MANAGEMENT:INITIAL REVIEW 29 YR OLD MALE BIBA FROM HOME CC;ABDOMINAL PAIN SI;PANCREATITIS 99.3 80 18 140/96 98% ON RA BG 124 AST 52 ALT 97 LIPASE 531 UA+ PROTEIN, KETONES, LEUKOCYTES, WBC, MUCUS TOX+ THC ABD/PELVIS CT ~ 1. Small hiatal hernia. Prominence of the wall of the distal esophagus is suggestive of esophagitis. 2. Prominence of the wall of the stomach may be secondary to under distention versus gastritis. 3. Wall thickening of the rectum and colon may be exaggerated by under distention versus colitis. 4. Peripancreatic fluid, concerning for acute pancreatitis. Please correlate with lipase levels. No fluid collection or pseudocyst. IS;ZOFRAN IV X2 PEPCID PO ONCE TORADOL IV ONCE IVF NS BOLUS MORPHINE IV ONCE PHENERGAN IV ONCE ADMITTED TO MED SURG @ 2052 ON 11/05/19 MED SURG STATUS DCP;FROM HOME
[2019-11-06] MEDS: 1/2NS w/KCl 20mEq 1000ml 1,000 ML IV SCH ×2 (13:28→19:53)
--- NOTE | 2019-11-06 13:29 | NUR ---
NURSE NOTES: Patient refusing IV potassium 10meq IVPB patient states it kong,rate slowed down and IV restarted.patient still refuses,will notify .
[2019-11-06 16:00] VITALS: BP 127/75
--- NOTE | 2019-11-06 19:30 | NUR ---
NURSE NOTES: Report received from Daja SCHROEDER. Patient is awake and alert x 4. Patient noted to be on room air. Patient denies shortness of breath or chest pain. Patient complains of abdominal pain 8/10. Will give pain medication as prescribed. Patient noted to have 24 nubia in right hand with fluids running per MD orders. Patient noted to have potassium lab value of 3.2 today. Endorsed to Alli SCHROEDER that patient refused to receive potassium via IV due to it burning. MD aware per Daja SCHROEDER. Bed locked and in lowest position. Call light in reach. Will continue to follow plan of care.
--- NOTE | 2019-11-06 19:51 | NUR ---
HAND-OFF: Report given to Alli SCHROEDER.
[2019-11-06 20:00] VITALS: BP 126/71
--- NOTE | 2019-11-06 20:06 | NUR ---
NURSE NOTES: DR bhatti aware patient refused IV potassium bolus.
--- NOTE | 2019-11-06 21:12 | General Progress Note ---
Assessment/Plan Assessment/Plan: GI CONSULT Patient seen. Consultation to follow Thank you Sarah Chavez MD Subjective Allergies: Coded Allergies: BANANA (Verified Allergy, Unknown, 01/04/18) PENICILLINS (Verified Allergy, Unknown, 01/04/18) ASPIRIN (Verified Adverse Reaction, Unknown, 01/04/18) stomach pain Objective Last 24 Hour Vital Signs Date Time Temp Pulse Resp B/P (MAP) Pulse Ox O2 Delivery O2 Flow Rate FiO2 11/06/19 20:00 98.1 88 18 126/71 (89) 97 11/06/19 16:00 98.4 65 18 127/75 (92) 96 11/06/19 12:00 99.7 56 18 121/80 (94) 94 11/06/19 09:21 Room Air 11/06/19 08:00 98.1 50 18 129/69 (89) 99 11/06/19 06:25 98.9 11/06/19 04:00 98.9 79 20 125/67 (86) 97 11/06/19 00:47 98.9 11/06/19 00:00 98.2 61 20 121/69 (86) 96 11/05/19 22:58 Room Air Intake and Output 11/05/19 11/06/19 19:00 07:00 Intake Total 1000 ml 675 ml Output Total 350 ml Balance 1000 ml 325 ml Intake Oral 0 ml IV Total 1000 ml 675 ml Output Urine Total 350 ml Laboratory Tests 11/06/19 07:30: White Blood Count 8.6, Red Blood Count 4.38L, Hemoglobin 11.8L, Hematocrit 35.7L , Mean Corpuscular Volume 82, Mean Corpuscular Hemoglobin 27.0, Mean Corpuscular Hemoglobin Concent 33.1, Red Cell Distribution Width 18.1H, Platelet Count 204, Mean Platelet Volume 8.0, Neutrophils (%) (Auto) 66.3, Lymphocytes (%) (Auto) 19.8L, Monocytes (%) (Auto) 7.9, Eosinophils (%) (Auto) 4.7H, Basophils (%) (Auto) 1.4, Sodium Level 140, Potassium Level 3.2L, Chloride Level 105, Carbon Dioxide Level 24, Anion Gap 11, Blood Urea Nitrogen 14, Creatinine 1.1, Estimat Glomerular Filtration Rate > 60, Glucose Level 98, Calcium Level 8.4L, Total Bilirubin 0.8, Aspartate Amino Transf (AST/SGOT) 30, Alanine Aminotransferase (ALT/SGPT) 67, Alkaline Phosphatase 58, Total Protein 5.7L, Albumin 3.1L, Globulin 2.6, Albumin/Globulin Ratio 1.2, Lipase 564H Height (Feet): 5 Height (Inches): 7.00 Weight (Pounds): 142 Willis Chavez MD November 06, 2019 21:12
[2019-11-07] VITALS: BP 128/80
--- NOTE | 2019-11-07 00:45 | Consultation ---
DATE OF CONSULTATION: 11/06/2019 INFECTIOUS DISEASE CONSULTATION CONSULTING PHYSICIAN: Arnel Alejo MD. PRIMARY ATTENDING: Jessy Davis MD. REASON FOR CONSULT: Acute pancreatitis. HISTORY OF PRESENT ILLNESS: A 29-year-old male admitted yesterday from home complaining of left upper abdominal pain with radiation to back, nausea, vomiting. PAST MEDICAL HISTORY: Significant for alcohol-induced pancreatitis. Actually patient was admitted to [facility] with pancreatitis in March, April, May of 2019 and June and August of 2019. Has nicotine dependence. ALLERGIES: Allergic to aspirin, penicillin, banana. MEDICATIONS: Nicotine patch, sodium chloride, hydromorphone, Tylenol, Zofran. SOCIAL HISTORY: Single. Has history of heavy alcohol abuse, but states that he did not have any drink in the past 1 or 2 weeks. Uses marijuana. He is also a smoker, 7 to 10 cigarettes a day. REVIEW OF SYSTEMS: No fever. No chills. No coughing. No nausea. No vomiting today. Has abnormal pain. No dysuria. PHYSICAL EXAMINATION: VITAL SIGNS: Temperature 99.7, pulse normal and blood pressure 121/81. GENERAL APPEARANCE: No acute distress. Well developed. HEAD AND NECK: No oral lesion. HEART: Normal rate. LUNGS: Clear. ABDOMEN: Tender in upper left side. EXTREMITIES: Has no edema. NEUROLOGIC: He is awake, alert, oriented x3. LABORATORY AND DIAGNOSTIC DATA: WBC 8.6, hemoglobin 11.8, hematocrit 35.7, platelets 204. Sodium 140, potassium 3.2, chloride 105, bicarb 24, BUN 14, creatinine 1.1, glucose 98, albumin is 3.1. Had slight elevation of AST and ALT at the time of admission, but that is resolved. Lipase is 561. Serum toxicology was negative for alcohol. Urine toxicology was positive for THC. UA showed wbc's of [address] scan of the abdomen and pelvis showed a small hiatal hernia, esophagitis, gastric distention versus gastritis, rectal wall thickening, acute pancreatitis. IMPRESSION: Acute pancreatitis. Patient has history of recurrent pancreatitis secondary to alcohol abuse. This time, pancreatitis happened without alcohol abuse. Has small hiatal hernia, nicotine dependence, marijuana abuse. RECOMMENDATION: Observe off antibiotic. Patient is willing to quit smoking and started on NicoDerm. 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 At the end of my exam, I thank Dr. Davis for involving me in the care of this patient. Arnel Alejo M.D. DR: JUANITA JOB#: [id number] CC: BRIGIDA
--- NOTE | 2019-11-07 01:00 | History and Physical Report ---
DATE OF ADMISSION: 11/05/2019 HISTORY OF PRESENT ILLNESS: The patient is complaining of abdominal pain and that radiated to the back. The patient's pain was severe and also complained of vomiting. Denies rectal bleeding. Denies history of gallstones. Denies fever or chills. He is admitted for pancreatitis. PAST MEDICAL HISTORY: Significant for GERD and asthma. PAST SURGICAL HISTORY: Incision and drainage. MEDICATIONS: Albuterol inhaler. ALLERGIES: To aspirin, banana, and penicillin. FAMILY HISTORY: Noncontributory. SOCIAL HISTORY: Denies history of smoking. Has used alcohol in the past. Denies history of drug abuse. REVIEW OF SYSTEMS: HEENT: Denies headaches. RESPIRATORY: Denies shortness of breath. Denies cough. CARDIOVASCULAR: Denies chest pain or orthopnea. GASTROINTESTINAL: Reports abdominal pain for about a day to two associated with vomiting. No hematemesis. No diarrhea. EXTREMITIES: Denies pain in lower extremities. CENTRAL NERVOUS SYSTEM: Denies change in speech pattern. PHYSICAL EXAMINATION: VITAL SIGNS: Temperature is 98.9, pulse is 79, blood pressure is 125/67. HEENT: PERRLA. CHEST: Clear to auscultation. CARDIOVASCULAR: Regular rate and rhythm. No murmurs, rubs, sounds. GASTROINTESTINAL: Soft. Epigastric tenderness. No rebound. Abdomen is soft. EXTREMITIES: No edema. Able to move all extremities. LABORATORY DATA: WBC of 10.2, hemoglobin 12.3, platelets 245. Sodium 139, potassium 3.5, BUN of 16, creatinine 1.2, glucose of 124. Lipase of 531. ASSESSMENT AND PLAN: Likely pancreatitis. We will keep the patient NPO. Give IV fluids. I have also consulted Dr. Chavez and Dr. Arnel Alejo to rule out any infectious etiology. Antibiotics if any per Dr. Arnel Alejo. Pancreatitis treatment will be helped also with the help of Dr. Chavez. Jessy Davis M.D. DR: LV JOB#: [id number] CC:
--- NOTE | 2019-11-07 02:00 | Consultation ---
DATE OF CONSULTATION: 11/05/2019 CHIEF COMPLAINT: I was asked to see this patient by Dr. Jessy Davis today for evaluation of pancreatitis. HISTORY OF PRESENT ILLNESS: The patient is a 29-year-old man with a history of alcohol use who comes into the hospital with a 24-hour history of epigastric abdominal pain, nausea, and vomiting. He states this pancreatitis and he has had many weekly although he states he has cut down significantly. He also uses marijuana. PAST MEDICAL HISTORY: History of recurrent pancreatitis and history of alcoholism. FAMILY HISTORY: Noncontributory. SOCIAL HISTORY: The patient uses alcohol and marijuana as described. MEDICATIONS: See chart list for details. PHYSICAL EXAMINATION: GENERAL: A well-developed, well-nourished man, seen in his room. HEENT: Normocephalic and atraumatic. Sclerae anicteric. Oropharynx clear. NECK: Supple. CHEST: Clear to auscultation. CARDIOVASCULAR: Revealed regular rate. ABDOMEN: Soft with some epigastric abdominal tenderness. EXTREMITIES: Revealed no edema. LABORATORY DATA: Noted. ASSESSMENT: This patient presents with recurrent pancreatitis, which is presumed to be alcohol in origin. The patient was strongly advised to discontinue all alcohol use. In the meantime, IV fluids should be given, and the patient's exam should be followed. I will replace potassium and give pain medications as needed. Thank you for asking me to participate in the care of this patient. Willis Chavez M.D. DR: Juan Jose JOB#: [id number] CC:
[2019-11-07] MEDS: HYDROmorphone 1mg/ml Carpuject IVP PRN ×3 (02:26→08:47)
[2019-11-07] MEDS: 1/2NS w/KCl 20mEq 1000ml 1,000 ML IV SCH ×2 (03:29→11:47)
[2019-11-07 04:00] VITALS: BP 117/77
[2019-11-07 06:30] LABS: ANION GAP 12 mmol/L (5-15); BLOOD UREA NITROGEN 10 mg/dL (7-18); CALCIUM 8.4 MG/DL (8.5-10.1); CARBON DIOXIDE 21 MMOL/L (21-32); CHLORIDE 105 MMOL/L (98-107); CREATININE 1.2 MG/DL (0.55-1.30); POTASSIUM 4.3 MMOL/L (3.5-5.1); SODIUM 138 MMOL/L (136-145)
--- NOTE | 2019-11-07 07:20 | NUR ---
HAND-OFF: Report given to Rowan SCHROEDER. Endorsed that patient is currently NPO. Endorsed that patient complained that current pain medication is not helping with pain for a long period of time. Patient currently in stable condition.
--- NOTE | 2019-11-07 07:21 | NUR ---
NURSE NOTES: Received patient in bed awake. No SOB or acute distress. IV line intact and patent. HOB elevated. Bed locked in lowest position. Call light within reach. Will continue plan of care.
[2019-11-07 08:00] VITALS: BP 104/56
--- NOTE | 2019-11-07 10:30 | NUR ---
NURSE NOTES: Placed on clear liquid diet as ordered, then advance to low fat diet if tolerated. May discharge after lunch if diet is tolerated.
[2019-11-07 11:59] VITALS: BP 128/74
--- NOTE | 2019-11-07 14:20 | NUR ---
NURSE NOTES: Discharged to home today. IV line removed. ID band removed. Discharge instructions given, verbalized understanding. Belongings accounted for. No new skin issues noted. No nausea/vomiting, diet tolerated well. Ambulated to [facility] and to be transported home by [facility].
--- NOTE | 2019-11-09 23:33 | Discharge Summary ---
Discharge Summary Discharge Summary _ DATE OF ADMISSION: 11/05/2019 DATE OF DISCHARGE: 11/07/2019 DISCHARGED BY: Dr. Jessy Cooper CONSULTANTS: Dr. Willis Alejo BRIEF HOSPITAL COURSE: Patient is a 29-year-old male, with no past medical history, presented to ED due to complaints of acute onset epigastric and left upper quadrant pain with radiation to the mid back. Pain was 10 out of 10. He complained of nausea, vomiting, however denied diarrhea or constipation. Denied bloody emesis. Denied any fever or chills no cough or congestion, no shortness of breath. Upon evaluation at the ED, vital signs were within normal limits. Patient was afebrile. CT of the abdomen and pelvis showed acute pancreatitis. Patient was then admitted due to pancreatitis. He was placed on n.p.o. He was given IV hydration. GI was consulted. Patient had recurrent pancreatitis which is presumed to be alcohol in origin. Patient stated he has been drinking weekly although he had cut down significantly. He also uses marijuana. He was strongly counseled against alcohol abuse. He was observed off antibiotics. He was recommended NicoDerm. His lipase down trended and normalized. He was started on clear liquid diet, advanced as tolerated. He was tolerating diet and was subsequently discharged home. FINAL DIAGNOSES: Acute pancreatitis due to alcohol, resolved Nicotine dependence Marijuana abuse Hiatal hernia DISPOSITION: Patient was discharged home. DISCHARGE MEDICATIONS: Refer to Discharge Medication List. DISCHARGE INSTRUCTIONS: Follow-up with PMD in 2 weeks. I have been assigned to complete a discharge summary on this account, I was not involved with the patient's management.--DAIJA Cruz Jacqueline Robles NP November 09, 2019 23:33
== END 2019-11-07 14:20 | disposition home or self-care (01) | DRG 440 ==
LOC: EDBD 15:11 → EMR 15:40 → 4E 18:15 → EDBEDREQ 18:48
DX: K85.20 Alcohol induced acute pancreatitis without necrosis or infection (principal); F17.200 Nicotine dependence, unspecified, uncomplicated; F12.10 Cannabis abuse, uncomplicated; K44.9 Diaphragmatic hernia without obstruction or gangrene; Z88.6 Allergy status to analgesic agent; Z88.0 Allergy status to penicillin; K21.9 Gastro-esophageal reflux disease without esophagitis; J45.909 Unspecified asthma, uncomplicated
CPT/HCPCS: 36415; 74177; 80048; 80053; 80307; 81003; 82550; 83690; 85025; 85610; 85730; 96361; 96374; 96375; 96376; 99285; G0480; J2405; J7030

== ENCOUNTER 2019-12-18 05:47 | Emergency (ER) | payer SELFPAY ==
[~2019-12-18] VITALS: Ht 165.1 cm; Wt 65.8 kg
[~2019-12-18 05:47] MED LIST changes: +ACETAMINOPHEN-1 EAC1 ORAL; +ALBUTEROL2.5 MG/3 M INH
[2019-12-18 06:00] VITALS: BP 164/107
[2019-12-18] MEDS ORDERED: Lidocaine 2% Visc 15ml soln ORAL ONE (06:30)
[2019-12-18] MEDS ORDERED: Mylanta II UD 30ml ORAL ONE (06:30)
[2019-12-18] MEDS ORDERED: Morphine Sulfate 4mg/ml Inj (IV USE ONLY) IVP ONE ×2 (06:30→07:30)
[2019-12-18] MEDS ORDERED: Dicyclomine HCl 10mg/5ml oral soln ORAL ONE (06:30)
[2019-12-18 06:54] LABS: ANION GAP 11 mmol/L (5-15); BLOOD UREA NITROGEN 6 mg/dL (7-18); CALCIUM 8.1 MG/DL (8.5-10.1); CARBON DIOXIDE 26 MMOL/L (21-32); CHLORIDE 100 MMOL/L (98-107); CREATININE 1.2 MG/DL (0.55-1.30); POTASSIUM 2.9 MMOL/L (3.5-5.1); SODIUM 137 MMOL/L (136-145)
--- NOTE | 2019-12-18 06:57 | Emergency Room Report ---
History of Present Illness General Chief Complaint: Abdominal Pain Source: Patient Present Illness HPI 29-year-old male presents complaining of abdominal pain. 8 out of 10, dull, radiating to the back. Notes nausea and vomiting. Was seen here last night. Was prescribed medications but was unable to fill them. History of pancreatitis. Denies alcohol use. Denies drug use. Denies chest pain or shortness of breath. Denies fevers or chills. No other aggravating relieving factors. 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: No Patient History Past Medical History: asthma, other - Pancreatitis Past Surgical History: none Pertinent Family History: none Social History: Denies: smoking, alcohol use, drug use Immunizations: UTD Reviewed Nursing Documentation: PMH: Agreed; PSxH: Agreed Nursing Documentation-PMH Hx Cardiac Problems: No Hx Asthma: Yes Hx Cancer: No Hx Gastrointestinal Problems: Yes - pancreatitis Hx Neurological Problems: No Review of Systems All Other Systems: negative except mentioned in HPI Physical Exam Vital Signs Date Time Temp Pulse Resp B/P (MAP) Pulse Ox O2 Delivery O2 Flow Rate FiO2 12/18/19 06:00 63 19 Room Air 12/18/19 06:00 97.0 164/107 100 Sp02 EP Interpretation: reviewed, normal General Appearance: no apparent distress, alert, GCS 15, non-toxic Head: normocephalic, atraumatic Eyes: bilateral eye normal inspection, bilateral eye PERRL ENT: hearing grossly normal, normal pharynx, no angioedema, normal voice Neck: full range of motion, supple/symm/no masses Respiratory: chest non-tender, lungs clear, normal breath sounds, speaking full sentences Cardiovascular #1: regular rate, rhythm, no edema Cardiovascular #2: 2+ carotid (R), 2+ carotid (L), 2+ radial (R), 2+ radial (L) , 2+ dorsalis pedis (R), 2+ dorsalis pedis (L) Gastrointestinal: normal bowel sounds, soft, non-distended, no guarding, no rebound, tenderness Rectal: deferred Genitourinary: normal inspection, no CVA tenderness Musculoskeletal: back normal, normal range of motion, gait/station normal, non- tender Neurologic: alert, motor strength/tone normal, oriented x3, sensory intact, responsive, speech normal Psychiatric: judgement/insight normal, memory normal, mood/affect normal, no suicidal/homicidal ideation Reflexes: 3+ bicep (R), 3+ bicep (L), 3+ tricep (R), 3+ tricep (L), 3+ knee (R) , 3+ knee (L) Lymphatic: no adenopathy Medical Decision Making Diagnostic Impression: Primary Impression: Gastritis Qualified Codes: K29.20 - Alcoholic gastritis without bleeding ER Course Hospital Course 29-year-old M presents to ED with epigastric pain with N/V. differential diagnosis: gastritis, SBO, cholecystits Clinical course Patient placed on stretcher. On threat monitoring analyst. After initial history and physical I ordered labs, IV fluids,zofran, pepcid GI cocktail and pain meds Labs - no leukocytosis, K 2.9, LFTs normal, lipase wnl Upon reassessment, patient states pain has improved. Patient was seen last night for similar symptoms. Was unable to fill his prescriptions. Abdomen soft. I see no reason for further work-up at this time. Patient has been admitted recently for alcohol use and recurrent pancreatitis. I see no reason for admission at this time. Safe for discharge with close outpatient follow- up. I will provide referrals I feel this is a highly complex case requiring extensive working including EKG/ Rhythm strip, Xray/CT/US, Blood/urine lab work, repeat exams while in ED, and administration of strong opiates/narcotics for pain control, admission to hospital or close patient follow up. Diagnosis - gastritis Stable and discharged to home. Fill your prescriptions from previous visit. Followup with PMD. Return to ED if symptoms recur or worsen Labs Test 12/18/19 06:20 White Blood Count 5.9 K/UL (4.8-10.8) Red Blood Count 3.85 M/UL (4.70-6.10) Hemoglobin 10.6 G/DL (14.2-18.0) Hematocrit 33.5 % (42.0-52.0) Mean Corpuscular Volume 87 FL (80-99) Mean Corpuscular Hemoglobin 27.5 PG (27.0-31.0) Mean Corpuscular Hemoglobin Concent 31.6 G/DL (32.0-36.0) Red Cell Distribution Width 19.7 % (11.6-14.8) Platelet Count 185 K/UL (150-450) Mean Platelet Volume 7.7 FL (6.5-10.1) Neutrophils (%) (Auto) 60.8 % (45.0-75.0) Lymphocytes (%) (Auto) 22.6 % (20.0-45.0) Monocytes (%) (Auto) 9.0 % (1.0-10.0) Eosinophils (%) (Auto) 5.1 % (0.0-3.0) Basophils (%) (Auto) 2.6 % (0.0-2.0) Sodium Level 137 MMOL/L (136-145) Potassium Level 2.9 MMOL/L (3.5-5.1) Chloride Level 100 MMOL/L (98-107) Carbon Dioxide Level 26 MMOL/L (21-32) Anion Gap 11 mmol/L (5-15) Blood Urea Nitrogen 6 mg/dL (7-18) Creatinine 1.2 MG/DL (0.55-1.30) Estimat Glomerular Filtration Rate > 60 mL/min (>60) Glucose Level 109 MG/DL (74-106) Calcium Level 8.1 MG/DL (8.5-10.1) Total Bilirubin 0.5 MG/DL (0.2-1.0) Aspartate Amino Transf (AST/SGOT) 66 U/L (15-37) Alanine Aminotransferase (ALT/SGPT) 55 U/L (12-78) Alkaline Phosphatase 77 U/L (46-116) Total Protein 6.6 G/DL (6.4-8.2) Albumin 3.7 G/DL (3.4-5.0) Globulin 2.9 g/dL Albumin/Globulin Ratio 1.3 (1.0-2.7) Lipase 333 U/L (73-393) Last Vital Signs Date Time Temp Pulse Resp B/P (MAP) Pulse Ox O2 Delivery O2 Flow Rate FiO2 12/18/19 06:00 97.0 63 19 164/107 100 Room Air Status: improved Disposition: HOME, SELF-CARE Condition: Stable Referrals: NOT CHOSEN [facility]/MD,REFERRING (PCP) Red Hassan MD Dec 18, 2019 06:57
[2019-12-18 06:59] LABS: ALANINE AMINOTRANSFERASE 55 U/L (12-78); ALBUMIN 3.7 G/DL (3.4-5.0); ALBUMIN/GLOBULIN RATIO 1.3 (1.0-2.7); ALKALINE PHOSPHATASE 77 U/L (46-116); ASPARTATE AMINO TRANSFERASE 66 U/L (15-37); BILIRUBIN,TOTAL 0.5 MG/DL (0.2-1.0)
[2019-12-18 07:02] LABS: BASOPHILS % (AUTO) 2.6 % (0.0-2.0); EOSINOPHILS % (AUTO) 5.1 % (0.0-3.0); HEMATOCRIT 33.5 % (42.0-52.0); HEMOGLOBIN 10.6 G/DL (14.2-18.0); LYMPHOCYTES % (AUTO) 22.6 % (20.0-45.0); MEAN CORPUSCULAR VOLUME 87 FL (80-99); NEUTROPHILS % (AUTO) 60.8 % (45.0-75.0); PLATELET COUNT 185 K/UL (150-450); RED BLOOD COUNT 3.85 M/UL (4.70-6.10); RED CELL DISTRIBUTION WIDTH 19.7 % (11.6-14.8); WHITE BLOOD COUNT 5.9 K/UL (4.8-10.8)
[2019-12-18 07:05] VITALS: BP 126/87
[2019-12-18 08:10] VITALS: BP 126/87
== END 2019-12-18 08:10 | disposition home or self-care (01) ==
LOC: EMR 06:04
DX: K29.20 Alcoholic gastritis without bleeding (principal); J45.909 Unspecified asthma, uncomplicated; Z72.89 Other problems related to lifestyle; Z87.19 Personal history of other diseases of the digestive system; Z88.0 Allergy status to penicillin; Z88.6 Allergy status to analgesic agent; Z91.018 Allergy to other foods
CPT/HCPCS: 36415; 80053; 83690; 85025; 96361; 96374; 96375; 96376; 99284; J2405; J7030; J8499

== ENCOUNTER 2020-01-24 10:23 | Emergency (ER) | payer SELFPAY ==
[~2020-01-24] VITALS: Ht 165.1 cm; Wt 60.8 kg
--- NOTE | 2020-01-24 10:23 | NUR ---
ED Nurse Note: Pt from home and walked in due to Left lower quadrant abd pain x 2 days. Pt states that his pain started from his back. Reports N/V x 2-3 episodes. Hx of pancreatitis. AAO x4, ambulates with steady gait. No respiratory distress and speaks in full sentences. Skin is warm and dry.
[2020-01-24 10:33] VITALS: BP 143/105
[2020-01-24] MEDS ORDERED: Omnipaque-300 100ml vial INJ PRN (10:45)
--- NOTE | 2020-01-24 10:48 | NUR ---
ED Nurse Note: Collected blood specimen and urine then sent.
--- NOTE | 2020-01-24 10:53 | Emergency Room Report ---
History of Present Illness General Chief Complaint: Abdominal Pain Source: Patient Present Illness HPI Patient is a 29-year-old male past medical history of alcoholic pancreatitis who presents to the ER complaining of abdominal pain. Patient complains of back pain and upper abdominal pain for the past 2 days. He complains of nausea and nonbilious nonbloody vomitus. He denies any fever or chills. He denies any chest pain or shortness of breath. He denies any diarrhea. He denies any dysuria or hematuria. 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: No Patient History Reviewed Nursing Documentation: PMH: Agreed; PSxH: Agreed Nursing Documentation-PMH Past Medical History: No History, Except For Hx Cardiac Problems: No Hx Asthma: Yes Hx Cancer: No Hx Gastrointestinal Problems: Yes - pancreatitis Hx Neurological Problems: No Review of Systems All Other Systems: negative except mentioned in HPI Physical Exam Vital Signs Date Time Temp Pulse Resp B/P (MAP) Pulse Ox O2 Delivery O2 Flow Rate FiO2 01/24/20 10:33 98.1 85 16 143/105 (118) 97 Room Air Sp02 EP Interpretation: reviewed, normal General Appearance: no apparent distress, alert, GCS 15, non-toxic Head: normocephalic, atraumatic Eyes: bilateral eye normal inspection, bilateral eye PERRL ENT: hearing grossly normal, normal pharynx, no angioedema, normal voice Neck: full range of motion, supple/symm/no masses Respiratory: chest non-tender, lungs clear, normal breath sounds, speaking full sentences Cardiovascular #1: regular rate, rhythm, no edema Gastrointestinal: no guarding, no rebound, other - Epigastric and left upper quadrant abdominal pain Rectal: deferred Genitourinary: no CVA tenderness Musculoskeletal: normal range of motion, no calf tenderness Neurologic: family lawyer III-XII nml as tested Psychiatric: no suicidal/homicidal ideation Skin: no rash Lymphatic: no adenopathy Medical Decision Making Diagnostic Impression: Primary Impression: Pancreatitis Additional Impression: Drug abuse ER Course Patient CT is consistent with acute pancreatitis. Patient given IV fluids as well as multiple doses of IV narcotics. Patient will be admitted for further treatment and evaluation. Patient declining admission. The patient is of adult age and has sound mind with no evidence of altered mental status suggesting metabolic or infections etiologies. I explained in layman's terms the risk of leaving against medical advise including and significant comorbidity. The patient was given reasonable options. This was explained in front of the patient and the bedside nurse ELDA Sullivan. The AMA for was signed and witnessed by a nurse and the patient. Laboratory Tests Test 01/24/20 10:50 01/24/20 10:51 White Blood Count 7.5 K/UL (4.8-10.8) Red Blood Count 4.32 M/UL (4.70-6.10) L Hemoglobin 11.3 G/DL (14.2-18.0) L Hematocrit 37.8 % (42.0-52.0) L Mean Corpuscular Volume 87 FL (80-99) Mean Corpuscular Hemoglobin 26.1 PG (27.0-31.0) L Mean Corpuscular Hemoglobin Concent 29.8 G/DL (32.0-36.0) L Red Cell Distribution Width 19.3 % (11.6-14.8) H Platelet Count 262 K/UL (150-450) Mean Platelet Volume 9.0 FL (6.5-10.1) Neutrophils (%) (Auto) 68.4 % (45.0-75.0) Lymphocytes (%) (Auto) 21.3 % (20.0-45.0) Monocytes (%) (Auto) 6.4 % (1.0-10.0) Eosinophils (%) (Auto) 2.3 % (0.0-3.0) Basophils (%) (Auto) 1.6 % (0.0-2.0) Prothrombin Time 11.4 SEC (9.30-11.50) Prothrombin Time INR 1.0 (0.9-1.1) Activated Partial Thromboplast Time 25 SEC (23-33) Sodium Level 137 MMOL/L (136-145) Potassium Level 4.0 MMOL/L (3.5-5.1) Chloride Level 104 MMOL/L (98-107) Carbon Dioxide Level 26 MMOL/L (21-32) Anion Gap 7 mmol/L (5-15) Blood Urea Nitrogen 16 mg/dL (7-18) Creatinine 1.3 MG/DL (0.55-1.30) Estimated Glomerular Filtration Rate > 60 mL/min (>60) Glucose Level 127 MG/DL (74-106) H Calcium Level 8.6 MG/DL (8.5-10.1) Magnesium Level 2.0 MG/DL (1.8-2.4) Total Bilirubin 0.4 MG/DL (0.2-1.0) Aspartate Amino Transferase (AST) 140 U/L (15-37) H Alanine Aminotransferase (ALT) 126 U/L (12-78) H Alkaline Phosphatase 103 U/L (46-116) Total Protein 6.8 G/DL (6.4-8.2) Albumin 3.5 G/DL (3.4-5.0) Globulin 3.3 g/dL Albumin/Globulin Ratio 1.1 (1.0-2.7) Lipase 352 U/L (73-393) Urine Color Pale yellow Urine Appearance Clear Urine pH 5 (4.5-8.0) Urine Specific [place] 1.020 (1.005-1.035) Urine Protein 1+ (NEGATIVE) H Urine Glucose (UA) Negative (NEGATIVE) Urine Ketones Negative (NEGATIVE) Urine Blood Negative (NEGATIVE) Urine Nitrite Negative (NEGATIVE) Urine Bilirubin Negative (NEGATIVE) Urine Urobilinogen Normal MG/DL (0.0-1.0) Urine Leukocyte Esterase 1+ (NEGATIVE) H Urine RBC 0 /HPF (0 - 0) Urine WBC 2-4 /HPF (0 - 0) Urine Squamous Epithelial Cells Occasional /LPF Urine Bacteria Occasional /HPF (NONE) Urine Opiates Screen Positive (NEGATIVE) H Urine Barbiturates Screen Negative (NEGATIVE) Phencyclidine (PCP) Screen Negative (NEGATIVE) Urine Amphetamines Screen Negative (NEGATIVE) Urine Benzodiazepines Screen Positive (NEGATIVE) H Urine Cocaine Screen Positive (NEGATIVE) H Urine Marijuana (THC) Screen Positive (NEGATIVE) H Last Vital Signs Date Time Temp Pulse Resp B/P (MAP) Pulse Ox O2 Delivery O2 Flow Rate FiO2 01/24/20 10:33 98.1 85 16 143/105 (118) 97 Room Air Disposition: AGAINST MEDICAL ADVICE Condition: Unknown Scripts Oxycodone/Acetaminophen 5-325* (PERCOCET 5-325 MG TABLET*) 1 Each Tablet 1 TAB ORAL Q6H PRN for For Pain, #20 TAB 0 Refills Prov: Edwige Reyna M.D. 01/24/20 Ondansetron* (ZOFRAN*) 4 Mg Tablet 4 MG ORAL Q6H PRN for Nausea & Vomiting, #14 TAB Prov: Edwige Reyna M.D. 01/24/20 Referrals: NOT CHOSEN [facility]/,REFERRING (PCP) Additional Instructions: The patient was provided with discharge instructions, notified to follow-up with a primary care doctor and or specialist in the next 24-48 hours, and to return to the ED if they have worsening of their symptoms. Please note that this report is being documented using Experiment technology. This can lead to erroneous entry secondary to incorrect interpretation by the dictating instrument. Edwige Reyna M.D. Jan 24, 2020 10:53
[2020-01-24 11:00] LABS: APPEARANCE,URINE CLEAR; BILIRUBIN, URINE NEGATIVE (NEGATIVE); COLOR,URINE PALE YELLOW; GLUCOSE, URINE (UA) NEGATIVE (NEGATIVE); KETONES,URINE NEGATIVE (NEGATIVE); LEUKOCYTE ESTERASE ,URINE 1+ (NEGATIVE); NITRITE,URINE NEGATIVE (NEGATIVE); PH,URINE 5 (4.5-8.0); PROTEIN,URINE 1+ (NEGATIVE); UROBILINOGEN,URINE NORMAL MG/DL (0.0-1.0)
[2020-01-24] MEDS ORDERED: Morphine Sulfate 4mg/ml Inj (IV USE ONLY) IVP ONE ×2 (11:00→12:15)
[2020-01-24 11:01] LABS: BASOPHILS % (AUTO) 1.6 % (0.0-2.0); EOSINOPHILS % (AUTO) 2.3 % (0.0-3.0); HEMATOCRIT 37.8 % (42.0-52.0); HEMOGLOBIN 11.3 G/DL (14.2-18.0); LYMPHOCYTES % (AUTO) 21.3 % (20.0-45.0); MEAN CORPUSCULAR VOLUME 87 FL (80-99); MONOCYTES % (AUTO) 6.4 % (1.0-10.0); NEUTROPHILS % (AUTO) 68.4 % (45.0-75.0); PLATELET COUNT 262 K/UL (150-450); RED BLOOD COUNT 4.32 M/UL (4.70-6.10); RED CELL DISTRIBUTION WIDTH 19.3 % (11.6-14.8); WHITE BLOOD COUNT 7.5 K/UL (4.8-10.8)
[2020-01-24 11:11] LABS: ANION GAP 7 mmol/L (5-15); BLOOD UREA NITROGEN 16 mg/dL (7-18); CALCIUM 8.6 MG/DL (8.5-10.1); CARBON DIOXIDE 26 MMOL/L (21-32); CHLORIDE 104 MMOL/L (98-107); CREATININE 1.3 MG/DL (0.55-1.30); SODIUM 137 MMOL/L (136-145)
[2020-01-24 11:15] LABS: ALANINE AMINOTRANSFERASE 126 U/L (12-78); ALBUMIN 3.5 G/DL (3.4-5.0); ALBUMIN/GLOBULIN RATIO 1.1 (1.0-2.7); ALKALINE PHOSPHATASE 103 U/L (46-116); ASPARTATE AMINO TRANSFERASE 140 U/L (15-37); BILIRUBIN,TOTAL 0.4 MG/DL (0.2-1.0)
--- NOTE | 2020-01-24 12:04 | NUR ---
ED Nurse Note: Pt is asking for more pain medication at this time. Dr Reyna was notified. IV fluids still running.
[2020-01-24 12:35] VITALS: BP 132/90
--- NOTE | 2020-01-24 12:38 | Diagnostic Imaging Report ---
EXAM: CT Abdomen and Pelvis With Intravenous Contrast CLINICAL HISTORY: PAIN TECHNIQUE: Axial computed tomography images of the abdomen and pelvis with intravenous contrast. CTDI is 3.6 mGy and DLP is 171.2 mGy-cm. One or more of the following dose reduction techniques were used: automated exposure control, adjustment of the mA and/or kV according to patient size, use of iterative reconstruction technique. COMPARISON: CT abdomen and pelvis 11/05/19 FINDINGS: Lung bases: Unremarkable. No mass. No consolidation. ABDOMEN: Liver: Unremarkable. No mass. Gallbladder and bile ducts: Distended gallbladder. No calcified stones. No ductal dilation. Pancreas: Extensive inflammatory changes and fluid around the pancreas and upper abdomen consistent with acute pancreatitis. No ductal dilation. Spleen: Unremarkable. No splenomegaly. Adrenals: Unremarkable. No mass. Kidneys and ureters: Unremarkable. No solid mass. No hydronephrosis. Stomach and bowel: Mild thickening of the descending and rectosigmoid colon may be due to underdistention, correlate for mild associated colitis. No bowel obstruction. PELVIS: Appendix: No findings to suggest acute appendicitis. Bladder: Unremarkable. No mass. Reproductive: Unremarkable as visualized. ABDOMEN and PELVIS: Intraperitoneal space: Unremarkable. No free air. No significant fluid collection. Bones/joints: No acute fracture. No dislocation. Soft tissues: Unremarkable. Vasculature: Unremarkable. No abdominal aortic aneurysm. Lymph nodes: Unremarkable. No enlarged lymph nodes. IMPRESSION: 1. Extensive inflammatory changes and fluid around the pancreas and upper abdomen consistent with acute pancreatitis. 2. Mild thickening of the descending and rectosigmoid colon may be due to underdistention, correlate for mild associated colitis. No bowel obstruction.
[2020-01-24] MEDS ORDERED: OMEPRAZOLE20 M2 ORAL (13:20)
[2020-01-24] MEDS ORDERED: ZOFRAN4 M3 ORAL (13:27)
[2020-01-24] MEDS ORDERED: PERCOCET 5-3251 EACH ORAL (13:27)
--- NOTE | 2020-01-24 13:30 | NUR ---
ED Nurse Note: Pt wants to sign out and not get admitted at this time due to personal reasons. Pt is also asking for more pain medications. Dr Reyna was notified.
[2020-01-24] MEDS ORDERED: PERCOCET 10-321 EACH ORAL (13:41)
[2020-01-24 13:53] VITALS: BP 134/87
--- NOTE | 2020-01-24 13:53 | NUR ---
ED Nurse Note: Pt signed AMA form and verbalized understanding of potential complications of not being admitted to the hospital. Dr Reyna aware. Py is AAO x4, ambulates with steady gait. Prescriptions were explained and provided to the pt. Pt verbalized understanding. ID band/IV access were removed.
== END 2020-01-24 13:53 | disposition left against medical advice (07) ==
LOC: EMR 10:44 → CANBEDREQ 13:29 → EMR 13:53
DX: K85.90 Acute pancreatitis without necrosis or infection, unspecified (principal); F19.10 Other psychoactive substance abuse, uncomplicated; Z88.0 Allergy status to penicillin; Z88.6 Allergy status to analgesic agent; Z91.018 Allergy to other foods
CPT/HCPCS: 36415; 74177; 80053; 80307; 81003; 83690; 83735; 85025; 85610; 85730; 96361; 96374; 96375; 96376; 99284; J2270; J2405; J7030; Q9967

== ENCOUNTER 2020-03-15 11:28 | Inpatient (IN) | payer SELFPAY ==
[~2020-03-15] VITALS: Ht 165.1 cm; Wt 67.4 kg
[~2020-03-15 11:28] MED LIST changes: +OMEPRAZOLE20 M2 ORAL; +PERCOCET 10-321 EACH ORAL; +PERCOCET 5-3251 EACH ORAL
[2020-03-15 11:40] VITALS: BP 133/87
--- NOTE | 2020-03-15 11:57 | Emergency Room Report ---
History of Present Illness General Chief Complaint: Abdominal Pain Source: Patient Present Illness HPI 30-year-old male history of alcohol abuse presents with epigastric pain times a few days, patient endorses nausea, sharp pain moderate severity aggravated with alcohol alleviated with pain medication, no fevers no chills, radiates to his back patient endorses drinking a lot patient presents for evaluation and treatment Allergies: Coded Allergies: BANANA (Verified Allergy, Unknown, 01/04/18) PENICILLINS (Verified Allergy, Unknown, 01/04/18) ASPIRIN (Verified Adverse Reaction, Unknown, 01/04/18) stomach pain COVID-19 Screening Contact w/high risk pt: No Recent Travel to affected area: No Experienced COVID-19 symptoms?: No COVID-19 Testing performed 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: No Patient History Past Medical History: see triage record Social History: Reports: alcohol use Reviewed Nursing Documentation: PMH: Agreed; PSxH: Agreed Nursing Documentation-PMH Past Medical History: No History, Except For Hx Cardiac Problems: No Hx Asthma: Yes Hx Cancer: No Hx Gastrointestinal Problems: Yes - pancreatitis Hx Neurological Problems: No Review of Systems All Other Systems: negative except mentioned in HPI Physical Exam Vital Signs Date Time Temp Pulse Resp B/P (MAP) Pulse Ox O2 Delivery O2 Flow Rate FiO2 03/15/20 11:31 97.9 97 16 133/87 (102) 98 Room Air Sp02 EP Interpretation: reviewed, normal General Appearance: well appearing, no apparent distress, alert Head: normocephalic, atraumatic Eyes: bilateral eye PERRL, bilateral eye EOMI ENT: uvula midline, moist mucus membranes Neck: supple, thyroid normal, supple/symm/no masses Respiratory: lungs clear, no respiratory distress, no retraction, no accessory muscle use Cardiovascular #1: normal peripheral pulses, regular rate, rhythm, no edema, no gallop, no murmur Gastrointestinal: no guarding, no rebound, tenderness - epigastrically Musculoskeletal: normal inspection Neurologic: alert, oriented x3 Psychiatric: mood/affect normal Skin: no rash, warm/dry Medical Decision Making Diagnostic Impression: Primary Impression: Pancreatitis Qualified Codes: K85.20 - Alcohol induced acute pancreatitis without necrosis or infection ER Course 30 year old male pmhx of etoh abuse, presents with epigastric pain, ddx includes gastritis, pancreatitis, cholecystitis. Patient given hydromorphone for pain control Elevated Lipase Patient with pancreatitis. Patient admitted to Dr. Dumont Laboratory Tests Test 03/15/20 11:45 White Blood Count 4.6 K/UL (4.8-10.8) L Red Blood Count 4.79 M/UL (4.70-6.10) Hemoglobin 12.0 G/DL (14.2-18.0) L Hematocrit 38.3 % (42.0-52.0) L Mean Corpuscular Volume 80 FL (80-99) Mean Corpuscular Hemoglobin 25.0 PG (27.0-31.0) L Mean Corpuscular Hemoglobin Concent 31.3 G/DL (32.0-36.0) L Red Cell Distribution Width 20.3 % (11.6-14.8) H Platelet Count 261 K/UL (150-450) Mean Platelet Volume 8.7 FL (6.5-10.1) Neutrophils (%) (Auto) 59.7 % (45.0-75.0) Lymphocytes (%) (Auto) 29.6 % (20.0-45.0) Monocytes (%) (Auto) 7.0 % (1.0-10.0) Eosinophils (%) (Auto) 0.6 % (0.0-3.0) Basophils (%) (Auto) 3.1 % (0.0-2.0) H Sodium Level 143 MMOL/L (136-145) Potassium Level 4.6 MMOL/L (3.5-5.1) Chloride Level 106 MMOL/L (98-107) Carbon Dioxide Level 24 MMOL/L (21-32) Anion Gap 13 mmol/L (5-15) Blood Urea Nitrogen 21 mg/dL (7-18) H Creatinine 1.4 MG/DL (0.55-1.30) H Estimated Glomerular Filtration Rate > 60 mL/min (>60) Glucose Level 136 MG/DL (74-106) H Calcium Level 8.5 MG/DL (8.5-10.1) Total Bilirubin 0.3 MG/DL (0.2-1.0) Aspartate Amino Transferase (AST) 93 U/L (15-37) H Alanine Aminotransferase (ALT) 133 U/L (12-78) H Alkaline Phosphatase 116 U/L (46-116) Total Protein 7.3 G/DL (6.4-8.2) Albumin 3.9 G/DL (3.4-5.0) Globulin 3.4 g/dL Albumin/Globulin Ratio 1.1 (1.0-2.7) Lipase 443 U/L (73-393) H Microbiology Date/Time Source Procedure Growth Status 03/15/20 12:10 Nasopharynx SARS-CoV-2 RdRp Gene Assay - Final Complete CT/MRI/US Diagnostic Results CT/MRI/US Diagnostic Results : Impression Procedure: CT Abdomen Pelvis w/Contrast Clinical Indication: Abdominal pain, nausea, vomiting for 2 days Technique: No oral contrast utilized, Stated. IV administration nonionic contrast. Venous phase spiral acquisition obtained through the abdomen and pelvis. Multiplanar reconstructions were generated. Total dose length product 192 mGycm. CTDIvol(s) 3 mGy. Dose reduction achieved using automated exposure control Comparison: 01/24/2020 Findings: There is infiltration of the peripancreatic fat. This is largely confined to the peripancreatic region, although some fluid is seen in the retroperitoneum surrounding the upper inferior vena cava and extending slightly into the balta hepatis and right paracolic gutter. The pancreas enhances normally. No organized fluid collection is demonstrated. The peripancreatic edema is less extensive than what was demonstrated previously Lack of enteric contrast limits assessment of the GI tract. There is questionable wall thickening of the splenic flexure and descending colon and equivocally of the ascending colon, more likely artifact of lack of distention. What is probably a normal appendix is visualized. Small bowel loops are nondilated. The stomach demonstrates prominent rugal folds, is otherwise unremarkable. The duodenum and distal esophagus are unremarkable. The liver, gallbladder, bile ducts, spleen, adrenals, kidneys are unremarkable. No retroperitoneal or mesenteric mass or adenopathy. No pelvic mass or adenopathy. The included lung bases are clear. The bones are unremarkable. Impression: Peripancreatic edema, likely indicating uncomplicated nonnecrotic acute pancreatitis Limited assessment of the GI tract, due to lack of enteric contrast administration Equivocal mild wall thickening of portions of the ascending, distal transverse, descending colon, most likely artifact of under distention. Colitis not completely excludable The CT scanner at [facility] is accredited by the [employer] and the scans are performed using protocols designed to limit radiati on exposure to as low as reasonably achievable to attain images of sufficient resolution adequate for diagnostic evaluation. Dictated By: Zac Ward MD Electronically Signed By:Zac Ward MD Signed Date/Time03/15/20 1606 CC: Jairo Tarango [id number] 0 Last Vital Signs Date Time Temp Pulse Resp B/P (MAP) Pulse Ox O2 Delivery O2 Flow Rate FiO2 03/15/20 11:31 97.9 97 16 133/87 (102) 98 Room Air Disposition: ADMITTED INPATIENT Condition: Stable Jairo Tarango MD Mar 15, 2020 11:57
--- NOTE | 2020-03-15 11:57 | NUR ---
ED Nurse Note: Pt complains of nausea, emesis bag handed, pt vomited x 1
[2020-03-15] MEDS ORDERED: Omnipaque-300 100ml vial INJ PRN (12:00)
[2020-03-15] MEDS ORDERED: Hydromorphone 0.5mg/0.5ml inj IVP ONE (12:00)
[2020-03-15 12:02] LABS: BASOPHILS % (AUTO) 3.1 % (0.0-2.0); EOSINOPHILS % (AUTO) 0.6 % (0.0-3.0); HEMATOCRIT 38.3 % (42.0-52.0); LYMPHOCYTES % (AUTO) 29.6 % (20.0-45.0); MEAN CORPUSCULAR VOLUME 80 FL (80-99); NEUTROPHILS % (AUTO) 59.7 % (45.0-75.0); PLATELET COUNT 261 K/UL (150-450); RED BLOOD COUNT 4.79 M/UL (4.70-6.10); RED CELL DISTRIBUTION WIDTH 20.3 % (11.6-14.8); WHITE BLOOD COUNT 4.6 K/UL (4.8-10.8)
--- NOTE | 2020-03-15 12:20 | NUR ---
ED Nurse Note: swabbed pt for rapid covid; sent to lab.
[2020-03-15 12:30] LABS: ANION GAP 13 mmol/L (5-15); BLOOD UREA NITROGEN 21 mg/dL (7-18); CALCIUM 8.5 MG/DL (8.5-10.1); CARBON DIOXIDE 24 MMOL/L (21-32); CHLORIDE 106 MMOL/L (98-107); CREATININE 1.4 MG/DL (0.55-1.30); POTASSIUM 4.6 MMOL/L (3.5-5.1); SODIUM 143 MMOL/L (136-145)
[2020-03-15 12:34] LABS: ALANINE AMINOTRANSFERASE 133 U/L (12-78); ALBUMIN 3.9 G/DL (3.4-5.0); ALBUMIN/GLOBULIN RATIO 1.1 (1.0-2.7); ALKALINE PHOSPHATASE 116 U/L (46-116); ASPARTATE AMINO TRANSFERASE 93 U/L (15-37); BILIRUBIN,TOTAL 0.3 MG/DL (0.2-1.0)
--- NOTE | 2020-03-15 13:23 | NUR ---
ED Nurse Note: Report given to Lakisha SCHROEDER.
--- NOTE | 2020-03-15 13:25 | NUR ---
ED Nurse Note: ERMD notified pt pain 01/25.
--- NOTE | 2020-03-15 13:50 | NUR ---
ED Nurse Note: Pt transferred to MS floor with all belongings. No acute distress.
--- NOTE | 2020-03-15 14:00 | NUR ---
NURSE NOTES: Received patient into room 415 bed 1,patient is alert and oriented, respirations unlabored/Iv saline lock to the left upper arm intact.Will notify DR Dumont for admission ordered.Call light within reach.
[2020-03-15] MEDS ORDERED: Morphine Sulfate 2mg/ml Inj(IV/IM USE ONLY) IVP PRN (14:15)
[2020-03-15] MEDS ORDERED: Potassium Chloride 10 MEQ in D5 1/2NS 1,000 ML IV SCH (15:00)
[2020-03-15 16:00] VITALS: BP 146/75
--- NOTE | 2020-03-15 16:12 | Diagnostic Imaging Report ---
Clinical Indication: Abdominal pain, nausea, vomiting for 2 days Technique: No oral contrast utilized, Stated. IV administration nonionic contrast. Venous phase spiral acquisition obtained through the abdomen and pelvis. Multiplanar reconstructions were generated. Total dose length product 192 mGycm. CTDIvol(s) 3 mGy. Dose reduction achieved using automated exposure control Comparison: 01/24/2020 Findings: There is infiltration of the peripancreatic fat. This is largely confined to the peripancreatic region, although some fluid is seen in the retroperitoneum surrounding the upper inferior vena cava and extending slightly into the balta hepatis and right paracolic gutter. The pancreas enhances normally. No organized fluid collection is demonstrated. The peripancreatic edema is less extensive than what was demonstrated previously Lack of enteric contrast limits assessment of the GI tract. There is questionable wall thickening of the splenic flexure and descending colon and equivocally of the ascending colon, more likely artifact of lack of distention. What is probably a normal appendix is visualized. Small bowel loops are nondilated. The stomach demonstrates prominent rugal folds, is otherwise unremarkable. The duodenum and distal esophagus are unremarkable. The liver, gallbladder, bile ducts, spleen, adrenals, kidneys are unremarkable. No retroperitoneal or mesenteric mass or adenopathy. No pelvic mass or adenopathy. The included lung bases are clear. The bones are unremarkable. Impression: Peripancreatic edema, likely indicating uncomplicated nonnecrotic acute pancreatitis Limited assessment of the GI tract, due to lack of enteric contrast administration Equivocal mild wall thickening of portions of the ascending, distal transverse, descending colon, most likely artifact of under distention. Colitis not completely excludable The CT scanner at [facility] is accredited by the [employer] and the scans are performed using protocols designed to limit radiation exposure to as low as reasonably achievable to attain images of sufficient resolution adequate for diagnostic evaluation.
[2020-03-15] MEDS ORDERED: Hydromorphone 0.5mg/0.5ml inj IVP PRN (17:45)
--- NOTE | 2020-03-15 18:24 | NUR ---
NURSE NOTES: Patient complaining of abdominal pain,patient can now receive Dilauid 0.5mg IV,patient state Morphine did not help much with the pain.Will follow up.Patient remains NPO.Call light within reach.
--- NOTE | 2020-03-15 19:56 | General Progress Note ---
Subjective Allergies: Coded Allergies: BANANA (Verified Allergy, Unknown, 01/04/18) PENICILLINS (Verified Allergy, Unknown, 01/04/18) ASPIRIN (Verified Adverse Reaction, Unknown, 01/04/18) stomach pain Objective Last 24 Hour Vital Signs Date Time Temp Pulse Resp B/P (MAP) Pulse Ox O2 Delivery O2 Flow Rate FiO2 03/15/20 16:00 97.7 74 17 146/75 (98) 99 03/15/20 15:26 Room Air 03/15/20 13:50 98.0 85 18 128/99 99 Room Air 03/15/20 12:35 97.8 03/15/20 11:40 97.9 16 133/87 98 Room Air 03/15/20 11:40 97 16 Room Air 03/15/20 11:31 97.9 97 16 133/87 (102) 98 Room Air Laboratory Tests 03/15/20 11:45: White Blood Count 4.6L, Red Blood Count 4.79, Hemoglobin 12.0L, Hematocrit 38.3L , Mean Corpuscular Volume 80, Mean Corpuscular Hemoglobin 25.0L, Mean Corpuscular Hemoglobin Concent 31.3L, Red Cell Distribution Width 20.3H, Platelet Count 261, Mean Platelet Volume 8.7, Neutrophils (%) (Auto) 59.7, Lymphocytes (%) (Auto) 29.6, Monocytes (%) (Auto) 7.0, Eosinophils (%) (Auto) 0.6, Basophils (%) (Auto) 3.1H, Sodium Level 143, Potassium Level 4.6, Chloride Level 106, Carbon Dioxide Level 24, Anion Gap 13, Blood Urea Nitrogen 21H, Creatinine 1.4H, Estimat Glomerular Filtration Rate > 60, Glucose Level 136H, Calcium Level 8.5, Total Bilirubin 0.3, Aspartate Amino Transf (AST/SGOT) 93H, Alanine Aminotransferase (ALT/SGPT) 133H, Alkaline Phosphatase 116, Total Protein 7.3, Albumin 3.9, Globulin 3.4, Albumin/Globulin Ratio 1.1, Lipase 443H Height (Feet): 5 Height (Inches): 5.00 Weight (Pounds): 150 Assessment/Plan Assessment/Plan: GI CONSULT Dictated Assessment - recurrent ETOH pancreatitis - Dark stools - Mild azotemia - h/o RAD Recommendations - NS IV - PPI - Check stool OB - follow labs - D/c EtOH Thank you Willis Nolan MD Mar 15, 2020 19:55
[2020-03-15 20:00] VITALS: BP 158/90
[2020-03-15] MEDS: D5NS 1,000 ML IV SCH (20:00)
--- NOTE | 2020-03-15 20:15 | NUR ---
NURSE NOTES: Pt is in bed, awake. No acute distress noted. Vitals stable. Pt is complaining of abdominal pain even after Dilaudid 0.[address] Bocanegra called inform. Dr. Bocanegra ordered to change the Dilaudid dose to 1mg IV q 3hrs for pain. Pain medication will be given as ordered PRN. Pt is NPO now.Pt instructed to collect stool for lab. Fall precaution in place, bed locked low in position,side rails up and call light within reach. Pt will be monitored.
[2020-03-15] MEDS: Pantoprazole Inj IVP SCH (20:55)
[2020-03-15] MEDS: Heparin 5000 units/ml inj SUBQ SCH (20:58)
[2020-03-15] MEDS: HYDROmorphone 1mg/ml Carpuject IVP PRN (21:06)
[2020-03-16] VITALS: BP 133/82
[2020-03-16] MEDS: HYDROmorphone 1mg/ml Carpuject IVP PRN ×8 (00:08→21:16)
--- NOTE | 2020-03-16 03:45 | NUR ---
NURSE NOTES: Pt is in bed, asleep. Pt is requiring pain medication Q3hrs. RR 16.
[2020-03-16 04:00] VITALS: BP 127/83
[2020-03-16] MEDS: D5NS 1,000 ML IV SCH ×3 (04:00→21:12)
[2020-03-16 06:25] LABS: BASOPHILS % (AUTO) 3.5 % (0.0-2.0); EOSINOPHILS % (AUTO) 4.3 % (0.0-3.0); HEMATOCRIT 32.2 % (42.0-52.0); HEMOGLOBIN 10.1 G/DL (14.2-18.0); LYMPHOCYTES % (AUTO) 28.6 % (20.0-45.0); MEAN CORPUSCULAR VOLUME 80 FL (80-99); MONOCYTES % (AUTO) 7.2 % (1.0-10.0); NEUTROPHILS % (AUTO) 56.5 % (45.0-75.0); PLATELET COUNT 201 K/UL (150-450); RED BLOOD COUNT 4.02 M/UL (4.70-6.10); RED CELL DISTRIBUTION WIDTH 20.5 % (11.6-14.8); WHITE BLOOD COUNT 7.8 K/UL (4.8-10.8)
[2020-03-16 07:01] LABS: AMYLASE 62 U/L (25-115); ANION GAP 8 mmol/L (5-15); BLOOD UREA NITROGEN 13 mg/dL (7-18); CALCIUM 8.3 MG/DL (8.5-10.1); CARBON DIOXIDE 25 MMOL/L (21-32); CHLORIDE 106 MMOL/L (98-107); CREATININE 1.1 MG/DL (0.55-1.30); POTASSIUM 3.6 MMOL/L (3.5-5.1); SODIUM 139 MMOL/L (136-145)
--- NOTE | 2020-03-16 07:22 | NUR ---
NURSE HAND-OFF: Important Events on Shift:[requiring pain medication Q3 hrs for abdominal pain ] Patient Status: [stable] Diet: [NPO] Pending Orders: [] Pending Results/Labs:[] Pending MD notification:[] Latest Vital Signs: Temperature 98.1 , Pulse 74 , B/P 127 /83 , Respiratory Rate 18 , O2 SAT 98 , Room Air, O2 Flow Rate . Vital Sign Comment: [] Latest Hardin Fall Score: 35 Fall Risk: Medium Risk Safety Measures: Call light Within Reach, Bed Alarm Zone 1, Side Rails Side Rails x2, Bed position Low and Locked. Fall Precautions: Yellow Socks Yellow Gown Door Sign Patient Fall Education Report given to [ELDA Banda].
--- NOTE | 2020-03-16 07:25 | NUR ---
NURSE NOTES: Received report from ELDA Fernandez. Patient seen in bed, AAOx4, room air. Breathing is even and unlabored, no SOB noted at this time. Patient complaints of abdominal pain, pain medication is not due yet and Rn reminded patient that pain medication is Q3 PRN. IV site patent and intact, no skin issues. Rn instructed patient to use call light before ambulating if felt dizzy or weak. Bed is locked and placed in lowest position. Call light within reach. Will continue to monitor
[2020-03-16 08:00] VITALS: BP 114/88
[2020-03-16] MEDS: Pantoprazole Inj IVP SCH ×2 (08:10→21:12)
[2020-03-16] MEDS: Heparin 5000 units/ml inj SUBQ SCH ×2 (08:11→21:12)
--- NOTE | 2020-03-16 09:30 | Consultation ---
DATE OF CONSULTATION: 03/15/2020 GASTROENTEROLOGY CONSULTATION CONSULTING PHYSICIAN: Willis Chavez M.D. CHIEF COMPLAINT: I was asked to see this patient by Dr. Gomez Dumont for evaluation of pancreatitis. HISTORY OF PRESENT ILLNESS: The patient is a 30-year-old man with a history of recurrent alcoholic pancreatitis who comes in to the hospital with a 2- to 3-day history of epigastric abdominal pain. He had some nausea and vomiting this morning which showed nonbloody and [id number] emesis. He drank a few hard liquor alcoholic drink yesterday. He complains of epigastric abdominal pain as the main issue at this point. PAST MEDICAL HISTORY: History of reactive airway disease, history of recurrent pancreatitis, and history of alcohol abuse. MEDICATIONS: As an outpatient include albuterol. FAMILY HISTORY: Positive for pancreatitis in multiple family members. SOCIAL HISTORY: The patient is single. He does not have any children. He smokes half a pack of cigarettes a day. REVIEW OF SYSTEMS: Otherwise negative. PHYSICAL EXAMINATION: GENERAL: Thin man, seen in his room. HEENT: Normocephalic and atraumatic. Sclerae anicteric. Oropharynx clear. NECK: Supple. CHEST: Clear to auscultation. CARDIOVASCULAR: Revealed regular rate. ABDOMEN: Soft with mild epigastric tenderness to palpation. EXTREMITIES: Revealed no edema. NEUROLOGIC: Nonfocal. LABORATORY DATA: Notable for elevated lipase level and mildly elevated creatinine. ASSESSMENT: This patient presents with recurrent bout of pancreatitis, which appears to likely be alcohol induced. The family history pancreatitis per the patient. Therefore, familial disorder needs to be investigated. However, at this time, the management is supportive care. I would keep him NPO overnight and then resume clear liquid diet and advance as tolerated. He also had some dark stools, which will have to be further evaluated with the Hemoccult. If positive, then endoscopy is indicated. In the meantime, proton pump inhibitors will be started. RECOMMENDATIONS: Per above discussion and per orders written in the chart. Thank you for asking me to participate in the care of this patient. Willis Chavez M.D. DR: Juan Jose JOB#: [id number] CC: BRIGIDA
[2020-03-16 12:00] VITALS: BP 128/76
--- NOTE | 2020-03-16 12:10 | NUR ---
CASE MANAGEMENT:INITIAL REVIEW 30 YR OLD MALE FROM HOME CC;ABDOMINAL PAIN SI;PANCREATITIS 98.0 97 18 133/87 98% ON RA WBC 4.6 H/H 12.0/38.3 BUN 21 CR 1.4 BG 136 AST 93 ALT 133 LIPASE 443 COVID RAPID ~ NEGATIVE ABD/PELVIS CT ~ Peripancreatic edema, likely indicating uncomplicated nonnecrotic acute pancreatitis Limited assessment of the GI tract, due to lack of enteric contrast administration Equivocal mild wall thickening of portions of the ascending, distal transverse, descending colon, most likely artifact of under distention. Colitis not completely excludable IS;1L IVF NS BOLUS MORPHINE IV ZOFRAN IV ONCE ADMITTED TO MED SURG 03/15/20 @ 1503 MED SURG STATUS DCP;FROM HOME PLAN; NPO Addendum: 03/16/20 at 1220 by AURELIA GUERRERO LVN LVN INTERQUAL CRITERIA MET
--- NOTE | 2020-03-16 12:21 | General Progress Note ---
Subjective ROS Limited/Unobtainable: Yes Allergies: Coded Allergies: BANANA (Verified Allergy, Unknown, 01/04/18) PENICILLINS (Verified Allergy, Unknown, 01/04/18) ASPIRIN (Verified Adverse Reaction, Unknown, 01/04/18) stomach pain Objective Last 24 Hour Vital Signs Date Time Temp Pulse Resp B/P (MAP) Pulse Ox O2 Delivery O2 Flow Rate FiO2 03/16/20 12:00 97.9 87 18 128/76 (93) 98 03/16/20 09:00 Room Air 03/16/20 08:00 97.9 77 18 114/88 (97) 97 03/16/20 04:00 98.1 74 18 127/83 (98) 98 03/16/20 00:38 98.4 03/16/20 00:00 98.4 70 20 133/82 (99) 95 03/15/20 21:00 Room Air 03/15/20 20:00 98.2 80 20 158/90 (112) 99 03/15/20 16:00 97.7 74 17 146/75 (98) 99 03/15/20 15:26 Room Air 03/15/20 13:50 98.0 85 18 128/99 99 Room Air 03/15/20 12:35 97.8 Intake and Output 03/15/20 03/16/20 19:00 07:00 Intake Total 75 ml 1375 ml Balance 75 ml 1375 ml Intake Oral 0 ml IV Total 75 ml 1375 ml # Voids 2 Laboratory Tests 03/16/20 05:45: White Blood Count 7.8#, Red Blood Count 4.02L, Hemoglobin 10.1L, Hematocrit 32.2L, Mean Corpuscular Volume 80, Mean Corpuscular Hemoglobin 25.2L, Mean Corpuscular Hemoglobin Concent 31.5L, Red Cell Distribution Width 20.5H, Platelet Count 201, Mean Platelet Volume 8.1, Neutrophils (%) (Auto) 56.5, Lymphocytes (%) (Auto) 28.6, Monocytes (%) (Auto) 7.2, Eosinophils (%) (Auto) 4.3H, Basophils (%) (Auto) 3.5H, Sodium Level 139, Potassium Level 3.6, Chloride Level 106, Carbon Dioxide Level 25, Anion Gap 8, Blood Urea Nitrogen 13, Creatinine 1.1, Estimat Glomerular Filtration Rate > 60, Glucose Level 113H, Calcium Level 8.3L, Amylase Level 62, Lipase 245 Height (Feet): 5 Height (Inches): 5.00 Weight (Pounds): 150 General Appearance: no apparent distress EENT: normal ENT inspection Neck: normal alignment Cardiovascular: normal rate Respiratory/Chest: decreased breath sounds Abdomen: normal bowel sounds, non tender, soft Extremities: non-tender Assessment/Plan Problem List: (1) Pancreatitis ICD Codes: K85.90 - Acute pancreatitis without necrosis or infection, unspecified SNOMED: 31604744 Qualifiers: Qualified Codes: K85.20 - Alcohol induced acute pancreatitis without necrosis or infection (2) Gastritis ICD Codes: K29.70 - Gastritis, unspecified, without bleeding SNOMED: 0222393 (3) Alcohol use ICD Codes: Z72.89 - Other problems related to lifestyle SNOMED: 254756 Assessment/Plan: ivf pain control fu labs start clears Reynaldo Campos MD Mar 16, 2020 12:21
--- NOTE | 2020-03-16 12:47 | NUR ---
NURSE NOTES: Patient urinated in urinal with light ines colored urine. Patient upgraded to clear liquid
[2020-03-16 16:00] VITALS: BP 123/82
--- NOTE | 2020-03-16 16:15 | History and Physical Report ---
DATE OF ADMISSION: 03/15/2020 DATE AND TIME SEEN: 03/16/2020 at 1 p.m. [employer]: Reynaldo Campos MD. CHIEF COMPLAINT: Alcoholic abuse and pancreatitis. BRIEF HISTORY: This is a 30-year-old male, who presents with increased drinking adolph for past several days had some abdominal pain, nausea, came to [place], diagnosed with alcoholic pancreatitis. Admitted to medical floor. Currently, slightly nauseous. No complaint. REVIEW OF SYSTEMS: No chest pain. No shortness of breath. Slight nausea. No vomiting or diarrhea. PAST MEDICAL HISTORY: Alcoholism. PAST SURGICAL HISTORY: Hernia and left ankle. MEDICATIONS: Include pantoprazole, heparin, Dilaudid, Zofran, morphine. ALLERGIES: Penicillin, aspirin. SOCIAL HISTORY: Positive smoke. Positive alcohol. No intravenous drug abuse. FAMILY HISTORY: Noncontributory. PHYSICAL EXAMINATION: GENERAL: Calm in bed, oriented x3, in no acute distress. VITAL SIGNS: Temperature is 97 degrees, pulse 87, respirations 18, blood pressure 120/76. CARDIOVASCULAR: No murmur. LUNGS: Distant and clear. ABDOMEN: Bowel sounds positive. Nontender. Nondistended. EXTREMITIES: No cyanosis, clubbing, or edema. NEUROLOGIC: Patient moves all extremities, slightly weak. LABORATORY DATA: Labs at this time show hemoglobin and hematocrit 10/32, otherwise CBC is normal. BMP shows glucose 113, otherwise normal. Lipase initially 443, now 245. ASSESSMENT: 1. Alcoholic pancreatitis. 2. Anemia. PLAN: GI followup. Antiemetic. Pain control. Advance diet as tolerated. CBC, BMP in the morning. Discharge planning. Gomez Dumont D.O. DR: CATY JOB#: [id number] CC:
--- NOTE | 2020-03-16 19:12 | NUR ---
NURSE HAND-OFF: Important Events on Shift: OB stool collected Patient Status: stable Diet: clear liquid Pending Orders: n/a Pending Results/Labs:Ob stool Pending MD notification:n/a Latest Vital Signs: Temperature 97.2 , Pulse 77 , B/P 123 /82 , Respiratory Rate 18 , O2 SAT 98 , Room Air, O2 Flow Rate . Vital Sign Comment: stable Latest Hardin Fall Score: 35 Fall Risk: Medium Risk Safety Measures: Call light Within Reach, Bed Alarm Zone 1, Side Rails Side Rails x2, Bed position Low and Locked. Fall Precautions: Yellow Socks Yellow Gown Door Sign Patient Fall Education Report given to ELDA Rodríguez.
--- NOTE | 2020-03-16 19:41 | NUR ---
NURSE NOTES: Received patient awake in bed, on telephone, no s/s of acute distress. IV access patent, running IVF maintenance, dressing dry and intact. Patient requesting pain med at next available administration. Bed low and locked, patient wearing non slip socks. Needs attended to at this time.
[2020-03-16 20:00] VITALS: BP 149/82
--- NOTE | 2020-03-16 23:30 | NUR ---
NURSE NOTES: Left message for Dr Dumont regarding patient's request for stronger pain medication. Awaiting callback.
[2020-03-17] VITALS: BP 140/81
[2020-03-17] MEDS: HYDROmorphone 1mg/ml Carpuject IVP PRN ×4 (00:13→09:37)
[2020-03-17 04:00] VITALS: BP 134/73
[2020-03-17] MEDS: D5NS 1,000 ML IV SCH (06:00)
[2020-03-17 06:15] LABS: BASOPHILS % (AUTO) 2.5 % (0.0-2.0); EOSINOPHILS % (AUTO) 4.6 % (0.0-3.0); HEMATOCRIT 30.7 % (42.0-52.0); HEMOGLOBIN 9.6 G/DL (14.2-18.0); LYMPHOCYTES % (AUTO) 39.8 % (20.0-45.0); MEAN CORPUSCULAR VOLUME 81 FL (80-99); MONOCYTES % (AUTO) 6.1 % (1.0-10.0); PLATELET COUNT 174 K/UL (150-450); RED BLOOD COUNT 3.79 M/UL (4.70-6.10); RED CELL DISTRIBUTION WIDTH 20.5 % (11.6-14.8); WHITE BLOOD COUNT 5.6 K/UL (4.8-10.8)
[2020-03-17 06:52] LABS: ALANINE AMINOTRANSFERASE 73 U/L (12-78); ALBUMIN 3.1 G/DL (3.4-5.0); ALKALINE PHOSPHATASE 88 U/L (46-116); AMYLASE 55 U/L (25-115); ANION GAP 6 mmol/L (5-15); ASPARTATE AMINO TRANSFERASE 47 U/L (15-37); BILIRUBIN,TOTAL 0.7 MG/DL (0.2-1.0); BLOOD UREA NITROGEN 5 mg/dL (7-18); CALCIUM 8.6 MG/DL (8.5-10.1); CARBON DIOXIDE 28 MMOL/L (21-32); CHLORIDE 107 MMOL/L (98-107); CHOLESTEROL 134 MG/DL (< 200); CREATININE 1.1 MG/DL (0.55-1.30); HDL CHOLESTEROL 57 MG/DL (40-60); POTASSIUM 3.5 MMOL/L (3.5-5.1); SODIUM 141 MMOL/L (136-145); TRIGLYCERIDES 184 MG/DL (30-150)
--- NOTE | 2020-03-17 07:15 | NUR ---
HAND-OFF: Report given to ELDA Banda.
--- NOTE | 2020-03-17 07:41 | NUR ---
NURSE NOTES: Received report from ELDA Glasgow. Patient seen in bed, AAOx4, room air. Breathing is even and unlabored, no SOB noted at this time. Patient complaints of abdominal pain, pain medication is not due yet and Rn reminded patient that pain medication is Q3 PRN. Patient stated that he wants to continue to be on clear liquid. Will let MD known of patients request. IV site patent and intact, no skin issues. Rn instructed patient to use call light before ambulating if felt dizzy or weak. Bed is locked and placed in lowest position. Call light within reach. Will continue to monitor
[2020-03-17 08:00] VITALS: BP 129/68
[2020-03-17] MEDS: Pantoprazole Inj IVP SCH (08:04)
[2020-03-17] MEDS: Heparin 5000 units/ml inj SUBQ SCH (08:06)
--- NOTE | 2020-03-17 08:24 | General Progress Note ---
Subjective Constitutional: Reports: weakness Allergies: Coded Allergies: BANANA (Verified Allergy, Unknown, 01/04/18) PENICILLINS (Verified Allergy, Unknown, 01/04/18) ASPIRIN (Verified Adverse Reaction, Unknown, 01/04/18) stomach pain All Systems: reviewed and negative except above Subjective calm in bed Objective Last 24 Hour Vital Signs Date Time Temp Pulse Resp B/P (MAP) Pulse Ox O2 Delivery O2 Flow Rate FiO2 03/17/20 08:00 97.6 82 19 129/68 (88) 97 03/17/20 06:38 98.1 03/17/20 04:00 98.1 70 18 134/73 (93) 98 03/17/20 03:37 97.9 03/17/20 00:43 97.9 03/17/20 00:00 97.9 86 18 140/81 (100) 98 03/16/20 21:46 97.9 03/16/20 20:17 Room Air 03/16/20 20:00 97.9 87 18 149/82 (104) 98 03/16/20 16:00 97.2 77 18 123/82 (96) 98 03/16/20 12:00 97.9 87 18 128/76 (93) 98 03/16/20 09:00 Room Air Intake and Output 03/16/20 03/17/20 19:00 07:00 Output Total 50 ml Balance -50 ml Output Stool Total 50 ml # Voids 3 # Bowel Movements 1 Laboratory Tests 03/16/20 16:45: Stool Occult Blood [Pending] 03/17/20 05:30: White Blood Count 5.6, Red Blood Count 3.79L, Hemoglobin 9.6L, Hematocrit 30.7L, Mean Corpuscular Volume 81, Mean Corpuscular Hemoglobin 25.3L, Mean Corpuscular Hemoglobin Concent 31.2L, Red Cell Distribution Width 20.5H, Platelet Count 174, Mean Platelet Volume 9.9, Neutrophils (%) (Auto) 47.0, Lymphocytes (%) (Auto) 39.8, Monocytes (%) (Auto) 6.1, Eosinophils (%) (Auto) 4.6H, Basophils (%) (Auto) 2.5H, Sodium Level 141, Potassium Level 3.5, Chloride Level 107, Carbon Dioxide Level 28, Anion Gap 6, Blood Urea Nitrogen 5L, Creatinine 1.1, Estimat Glomerular Filtration Rate > 60, Glucose Level 101, Calcium Level 8.6, Total Bilirubin 0.7, Aspartate Amino Transf (AST/SGOT) 47H, Alanine Aminotransferase (ALT/SGPT) 73, Alkaline Phosphatase 88, Total Protein 6.1L, Albumin 3.1L, Globulin 3.0, Albumin/Globulin Ratio 1.0, Triglycerides Level 184H , Cholesterol Level 134, LDL Cholesterol 43, HDL Cholesterol 57, Cholesterol/HDL Ratio 2.4L, Amylase Level 55, Lipase 87 Height (Feet): 5 Height (Inches): 5.00 Weight (Pounds): 150 General Appearance: alert EENT: normal ENT inspection Neck: normal alignment Cardiovascular: normal peripheral pulses, normal rate, regular rhythm Respiratory/Chest: chest wall non-tender, lungs clear, normal breath sounds Abdomen: normal bowel sounds, non tender, soft Extremities: normal inspection Edema: no edema noted Arm (L), no edema noted Arm (R), no edema noted Leg (L), no edema noted Leg (R), no edema noted Pedal (L), no edema noted Pedal (R), no edema noted Generalized Neurologic: responsive Skin: normal pigmentation, warm/dry Assessment/Plan Problem List: (1) Abdominal pain ICD Codes: R10.9 - Unspecified abdominal pain SNOMED: 14309362 (2) Pancreatitis ICD Codes: K85.90 - Acute pancreatitis without necrosis or infection, unspecified SNOMED: 32996444 Qualifiers: Qualified Codes: K85.20 - Alcohol induced acute pancreatitis without necrosis or infection (3) Alcohol use ICD Codes: Z72.89 - Other problems related to lifestyle SNOMED: 731904 Status: stable, progressing Assessment/Plan: adv diet, pain control dc if clear by Gomez Berrios DO Mar 17, 2020 08:24
--- NOTE | 2020-03-17 08:30 | General Progress Note ---
Subjective ROS Limited/Unobtainable: No Allergies: Coded Allergies: BANANA (Verified Allergy, Unknown, 01/04/18) PENICILLINS (Verified Allergy, Unknown, 01/04/18) ASPIRIN (Verified Adverse Reaction, Unknown, 01/04/18) stomach pain Objective Last 24 Hour Vital Signs Date Time Temp Pulse Resp B/P (MAP) Pulse Ox O2 Delivery O2 Flow Rate FiO2 03/17/20 08:00 97.6 82 19 129/68 (88) 97 03/17/20 06:38 98.1 03/17/20 04:00 98.1 70 18 134/73 (93) 98 03/17/20 03:37 97.9 03/17/20 00:43 97.9 03/17/20 00:00 97.9 86 18 140/81 (100) 98 03/16/20 21:46 97.9 03/16/20 20:17 Room Air 03/16/20 20:00 97.9 87 18 149/82 (104) 98 03/16/20 16:00 97.2 77 18 123/82 (96) 98 03/16/20 12:00 97.9 87 18 128/76 (93) 98 03/16/20 09:00 Room Air Intake and Output 03/16/20 03/17/20 18:59 06:59 Intake Total 125 ml Output Total 50 ml Balance 75 ml IV Total 125 ml Output Stool Total 50 ml # Voids 3 # Bowel Movements 1 Laboratory Tests 03/16/20 16:45: Stool Occult Blood [Pending] 03/17/20 05:30: White Blood Count 5.6, Red Blood Count 3.79L, Hemoglobin 9.6L, Hematocrit 30.7L, Mean Corpuscular Volume 81, Mean Corpuscular Hemoglobin 25.3L, Mean Corpuscular Hemoglobin Concent 31.2L, Red Cell Distribution Width 20.5H, Platelet Count 174, Mean Platelet Volume 9.9, Neutrophils (%) (Auto) 47.0, Lymphocytes (%) (Auto) 39.8, Monocytes (%) (Auto) 6.1, Eosinophils (%) (Auto) 4.6H, Basophils (%) (Auto) 2.5H, Sodium Level 141, Potassium Level 3.5, Chloride Level 107, Carbon Dioxide Level 28, Anion Gap 6, Blood Urea Nitrogen 5L, Creatinine 1.1, Estimat Glomerular Filtration Rate > 60, Glucose Level 101, Calcium Level 8.6, Total Bilirubin 0.7, Aspartate Amino Transf (AST/SGOT) 47H, Alanine Rivera otransferase (ALT/SGPT) 73, Alkaline Phosphatase 88, Total Protein 6.1L, Albumin 3.1L, Globulin 3.0, Albumin/Globulin Ratio 1.0, Triglycerides Level 184H, Cholesterol Level 134, LDL Cholesterol 43, HDL Cholesterol 57, Cholesterol/HDL Ratio 2.4L, Amylase Level 55, Lipase 87 Height (Feet): 5 Height (Inches): 5.00 Weight (Pounds): 150 General Appearance: no apparent distress EENT: normal ENT inspection Neck: supple Cardiovascular: normal rate Respiratory/Chest: decreased breath sounds Abdomen: normal bowel sounds, non tender, soft Extremities: non-tender Assessment/Plan Problem List: (1) Pancreatitis ICD Codes: K85.90 - Acute pancreatitis without necrosis or infection, unspecified SNOMED: 97757072 Qualifiers: Qualified Codes: K85.20 - Alcohol induced acute pancreatitis without necrosis or infection (2) Gastritis ICD Codes: K29.70 - Gastritis, unspecified, without bleeding SNOMED: 9483429 (3) Alcohol use ICD Codes: Z72.89 - Other problems related to lifestyle SNOMED: 599486 Status: stable, progressing Assessment/Plan: ivf pain control fu labs advance diet Reynaldo Campos MD Mar 17, 2020 08:30
--- NOTE | 2020-03-17 09:55 | NUR ---
NURSE NOTES: Patient is on a cardiac low fat/cholesterol diet. Patient is tolerating diet with complaints of slight abdominal pain after ingestion of food
--- NOTE | 2020-03-17 10:25 | NUR ---
NURSE NOTES: Patient is ready for discharge. Packets are ready to be printed, patient aware of discharge, family member aware of discharge. waiting for Dr. Dumont to do discharge medication
--- NOTE | 2020-03-17 10:45 | NUR ---
NURSE NOTES: Patient had an active discharge order and was cleared by both Dr. Dumont and Dr. Campos. Nursing assessment done as well as instructional packet., but discharge medication was pending. Patient initially signed belongings list and discharge checklist. Then patient went to nursing station and verbalized that he cannot wait for the prescription because he has somewhere important to be. RN notified Dr. Dumont for discharge medications to be done 30 minutes prior to incident, Dr. Dumont then informed Rn that Dr. Howard will be doing discharge medication. RN made patient aware, but patient didnt have time to wait. Patient stated he wants to go AMA, AMA form signed. RN made Dr. Dumont adn Dr Howard aware. Charge nurse was made aware as well. IV site and patient arm band was removed. patient left by himself
--- NOTE | 2020-03-17 10:45 | NUR ---
AMA: SEE AMA FORM.
--- NOTE | 2020-03-19 09:02 | Discharge Summary ---
Discharge Summary Discharge Summary _ DATE OF ADMISSION: 03/15/20 DATE OF DISCHARGE: 03/17/20 Patient left AGAINST MEDICAL ADVICE REASON FOR ADMISSION: 30 years old male with history of alcohol abuse, mild asthma, presented with epigastric pain associated with nausea. Patient reported few days of epigastric pain . Pain reported as sharp and moderate in severity, radiating to his back. Patient reported heavy drinking recently. He denied fever and chills. No chest pain, no shortness of breath. Upon evaluation vital signs were stable. Laboratory work-up revealed no leukocytosis , hemoglobin 12, hematocrit 38.3, platelet 261. Stable electrolytes. BUN 21, creatinine 1.4. Glucose 136. AST 93, ALT 133. Lipase 443. Rapid COVID-[address] of the abdomen and pelvis revealed peripancreatic edema, likely indicating uncomplicated nonnecrotic acute pancreatitis. Equivocal mild wall thickening of portion of the ascending, distal transverse, descending colon most likely artifact of under distention. Colitis was not completely excludable. Rapid COVID-19 was negative. Patient received analgesic, 1 L of fluids , antiemetic and admitted for further management. CONSULTANTS: GI specialist Dr. Campos [facility] COURSE: Patient admitted to medical surgical floor. Patient started on the IV fluids . Patient initially was kept n.p.o. and started on clear liquid diet . Diet was advanced as tolerated. Pain management was addressed. Supportive care provided. Antiemetic provided as needed. DVT and GI prophylaxis provided. LFT and lipase trended down . Prior to signing AMA: AST from 93 down to 47, ALT from 133 down to 73. Lipase down to 87. Creatinine from 1.4 down to 1.1. Stool for occult blood was positive. Hemoglobin and hematocrit were closely monitored with goal to keep hemoglobin above 7. Prior to signing AMA hemoglobin 9., 6 hematocrit 30.7. Patient was counseled on abstinence from alcohol. Patient was recommended to have outpatient GI procedure. Patient was able to tolerate diet. Patient had active discharge order , however patient did not want to wait for the prescription and decided to leave AGAINST MEDICAL ADVICE. The risks and consequences of signing AGAINST MEDICAL ADVICE were discussed with patient in detail. Patient verbalized understanding, nevertheless signed AMA form and left. FINAL DIAGNOSES: Acute alcoholic pancreatitis Gastritis Anemia I have been assigned to dictate discharge summary for this account. I was not involved in the patient's management. Luann Grajeda NP Mar 19, 2020 09:02
== END 2020-03-17 10:57 | disposition left against medical advice (07) | DRG 440 ==
LOC: EMR 12:11 → 4E 12:22 → EDBEDREQ 13:00
DX: K85.20 Alcohol induced acute pancreatitis without necrosis or infection (principal); F10.10 Alcohol abuse, uncomplicated; Z88.6 Allergy status to analgesic agent; Z88.0 Allergy status to penicillin; F17.200 Nicotine dependence, unspecified, uncomplicated; K29.70 Gastritis, unspecified, without bleeding; D64.9 Anemia, unspecified
CPT/HCPCS: 36415; 74177; 80048; 80053; 80061; 82150; 82270; 83690; 85025; 96361; 96374; 96375; 99285; J2405; J7030; U0002

== ENCOUNTER 2020-06-25 19:47 | Emergency (ER) | payer MEDICAID ==
[~2020-06-25] VITALS: Ht 165.1 cm; Wt 77.1 kg
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
[2020-06-25 20:00] VITALS: BP 148/90
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
--- NOTE | 2020-06-25 20:15 | NUR ---
ED Nurse Note: patient off floor for ct scan.
--- NOTE | 2020-06-25 20:31 | NUR ---
ED Nurse Note: patient back on floor from ct scan. xray at bedside.
[2020-06-25] MEDS ORDERED: FAMOTIDINE20 MG ORAL (20:48)
[2020-06-25] MEDS ORDERED: ACETAMINOPHEN500 M3 ORAL (20:48)
[2020-06-25 20:51] VITALS: BP 148/90
--- NOTE | 2020-06-25 20:52 | NUR ---
ED Nurse Note: Patient cleared by health care Provider for discharge. DC instructions/prescription was given and explained to pt and verbalized understanding of teachings. All medical deviecs such as ID band removed. Pt is AAO x4, ambulatory and left with all personal belongings.
--- NOTE | 2020-06-25 21:08 | Diagnostic Imaging Report ---
EXAM: CT Head Without Intravenous Contrast CLINICAL HISTORY: TRAUMA TECHNIQUE: Axial computed tomography images of the head/brain without intravenous contrast. CTDI is 53.4 mGy and DLP is 965.4 mGy-cm. One or more of the following dose reduction techniques were used: automated exposure control, adjustment of the mA and/or kV according to patient size, use of iterative reconstruction technique. COMPARISON: No relevant prior studies available. FINDINGS: Brain: No hemorrhage, extra-axial fluid collection, mass effect, or edema. Ventricles: Unremarkable. Bones/joints: Unremarkable. No fracture. Soft tissues: Unremarkable. Sinuses: Unremarkable as visualized. Mastoid air cells: Unremarkable as visualized. IMPRESSION: 1. No acute intracranial abnormality.
--- NOTE | 2020-06-26 10:22 | Diagnostic Imaging Report ---
EXAM: XR Left Shoulder Complete, 2 or More Views CLINICAL HISTORY: PAIN TECHNIQUE: Two or more views of the left shoulder. COMPARISON: No relevant prior studies available. FINDINGS/IMPRESSION: No acute fracture or dislocation. Note, only a single internal rotation view is submitted and no external rotation view. No posterior dislocation on transscapular Y-view. Intact distal clavicle and acromion.
== END 2020-06-25 20:53 | disposition home or self-care (01) ==
LOC: EMR 20:24
DX: M25.512 Pain in left shoulder (principal); K58.9 Irritable bowel syndrome, unspecified; J45.909 Unspecified asthma, uncomplicated; Z88.6 Allergy status to analgesic agent; Z88.0 Allergy status to penicillin; Z91.018 Allergy to other foods; Y09 Assault by unspecified means; Z79.899 Other long term (current) drug therapy
CPT/HCPCS: 70450; 73030; 96372; Z7502; 99284

== ENCOUNTER 2020-07-21 16:57 | Emergency (ER) | payer MEDICAID ==
[~2020-07-21] VITALS: Ht 165.1 cm; Wt 68.0 kg
[~2020-07-21 16:57] MED LIST changes: +ACETAMINOPHEN500 M3 ORAL
--- NOTE | 2020-07-21 17:20 | Emergency Room Report ---
History of Present Illness General Chief Complaint: Abdominal Pain Source: Patient Present Illness HPI Patient presents with 3 days of epigastric pain radiating towards his back. Alcohol abuse and also using THC. Has had history of pancreatitis in the past. He feels like this at this time. He has been trying Zofran and also Tylenol. He says he is vomiting blood. She says is not coffee grounds. He has felt chilled but no documented fever. He has not moved his bowels for the last 2 days. He denies exposure to Covid positive contacts. No sore throat, chest pain, palpitations, dysuria, shortness of breath, joint pain, rashes, depression, anxiety, visual changes, dizziness, headache. 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: No Patient History Past Medical History: see triage record Social History: Reports: smoking, alcohol use, drug use Social History Narrative Brought by girlfriend Reviewed Nursing Documentation: PMH: Agreed; PSxH: Agreed Nursing Documentation-PMH Past Medical History: No History, Except For Hx Cardiac Problems: No Hx Asthma: Yes Hx Cancer: No Hx Gastrointestinal Problems: Yes - pancreatitis, IBS Hx Neurological Problems: No Review of Systems All Other Systems: negative except mentioned in HPI Physical Exam Vital Signs Date Time Temp Pulse Resp B/P (MAP) Pulse Ox O2 Delivery O2 Flow Rate FiO2 07/21/20 17:06 98.8 72 15 165/107 (126) 98 Room Air Sp02 EP Interpretation: reviewed, normal General Appearance: well appearing, no apparent distress, GCS 15, non-toxic Head: normocephalic Eyes: bilateral eye normal inspection, bilateral eye PERRL, bilateral eye EOMI ENT: moist mucus membranes Neck: supple Respiratory: lungs clear, normal breath sounds Cardiovascular #1: regular rate, rhythm Cardiovascular #2: 2+ radial (R) Gastrointestinal: normal inspection, normal bowel sounds, no mass, non- distended, no guarding, no rebound, tenderness Musculoskeletal: back normal, normal range of motion, gait/station normal Neurologic: alert, oriented x3, normal inspection Psychiatric: mood/affect normal Skin: no rash, warm/dry Medical Decision Making Diagnostic Impression: Primary Impression: Abdominal pain Qualified Codes: R10.13 - Epigastric pain Additional Impression: Anemia Qualified Codes: D64.9 - Anemia, unspecified ER Course Patient presents with a history of pancreatitis presents with vomiting and abdominal pain. Differential includes gastritis, pancreatitis, peptic ulcer disease, gastroenteritis amongst others. Patient evaluated with labs. Patient treated with IV hydration, Pepcid, Reglan, Benadryl and morphine. Patient placed on a monitor worker. Labs significant for anemia which is stable since last year. Lipase is normal. Patient improved with treatment and tolerating oral intake. Discussed treatment plan with patient and abstention from alcohol and marijuana. Patient stable for outpatient observation and treatment. Laboratory Tests Test 07/21/20 17:15 07/21/20 17:20 Urine Color Yellow Urine Appearance Clear Urine pH 5 (4.5-8.0) Urine Specific [place] 1.025 (1.005-1.035) Urine Protein 2+ (NEGATIVE) H Urine Glucose (UA) Negative (NEGATIVE) Urine Ketones 1+ (NEGATIVE) H Urine Blood Negative (NEGATIVE) Urine Nitrite Negative (NEGATIVE) Urine Bilirubin Negative (NEGATIVE) Urine Urobilinogen Normal MG/DL (0.0-1.0) Urine Leukocyte Esterase Negative (NEGATIVE) Urine RBC 0 /HPF (0 - 0) Urine WBC 2-4 /HPF (0 - 0) Urine Squamous Epithelial Cells Occasional /LPF Urine Bacteria Few /HPF (NONE) Urine Mucus Few /LPF (NONE/OCC) H White Blood Count 7.3 K/UL (4.8-10.8) Red Blood Count 4.00 M/UL (4.70-6.10) L Hemoglobin 9.5 G/DL (14.2-18.0) L Hematocrit 34.4 % (42.0-52.0) L Mean Corpuscular Volume 86 FL (80-99) Mean Corpuscular Hemoglobin 23.7 PG (27.0-31.0) L Mean Corpuscular Hemoglobin Concent 27.6 G/DL (32.0-36.0) L Red Cell Distribution Width 22.7 % (11.6-14.8) H Platelet Count 293 K/UL (150-450) Mean Platelet Volume 7.8 FL (6.5-10.1) Neutrophils (%) (Auto) 54.5 % (45.0-75.0) Lymphocytes (%) (Auto) 36.1 % (20.0-45.0) Monocytes (%) (Auto) 6.7 % (1.0-10.0) Eosinophils (%) (Auto) 0.9 % (0.0-3.0) Basophils (%) (Auto) 1.8 % (0.0-2.0) Sodium Level 140 MMOL/L (136-145) Potassium Level 4.0 MMOL/L (3.5-5.1) Chloride Level 104 MMOL/L (98-107) Carbon Dioxide Level 24 MMOL/L (21-32) Anion Gap 12 mmol/L (5-15) Blood Urea Nitrogen 17 mg/dL (7-18) Creatinine 1.3 MG/DL (0.55-1.30) Estimated Glomerular Filtration Rate > 60 mL/min (>60) Glucose Level 106 MG/DL (74-106) Calcium Level 8.4 MG/DL (8.5-10.1) L Total Bilirubin 0.4 MG/DL (0.2-1.0) Aspartate Amino Transferase (AST) 80 U/L (15-37) H Alanine Aminotransferase (ALT) 86 U/L (12-78) H Alkaline Phosphatase 114 U/L (46-116) Total Protein 7.0 G/DL (6.4-8.2) Albumin 3.6 G/DL (3.4-5.0) Globulin 3.4 g/dL Albumin/Globulin Ratio 1.1 (1.0-2.7) Lipase 392 U/L (73-393) Rhythm Strip Diag. Results Rhythm: NSR, no PVC's, no ectopy Last Vital Signs Date Time Temp Pulse Resp B/P (MAP) Pulse Ox O2 Delivery O2 Flow Rate FiO2 07/21/20 18:44 98.8 70 15 127/81 100 Room Air Status: improved Disposition: HOME, SELF-CARE Condition: Improved Scripts Multivit, Iron, Min No. 8, Fa (GNP THERAPEUTIC-M CAPLET) 1 Each Tablet 1 EACH PO DAILY, #30 TAB Prov: Korey Guzman MD 07/21/20 Famotidine* (Pepcid 20mg tablet*) 20 Mg Tablet 20 MG ORAL DAILY for Gerd, #30 TAB 0 Refills Prov: Korey Guzman MD 07/21/20 Promethazine HCl (Promethegan) 25 Mg Supp.rect 25 MG RECTAL Q8HR PRN for Nausea & Vomiting, #6 SUPP 1 Refill Prov: Korey Guzman MD 07/21/20 Promethazine Hcl* (PHENERGAN*) 25 Mg Tablet 25 MG ORAL Q8HR PRN for Nausea & Vomiting, #10 TAB 0 Refills Prov: Korey Guzman MD 07/21/20 Korey Guzman MD Jul 21, 2020 17:20
--- NOTE | 2020-07-21 17:23 | NUR ---
ED Nurse Note: blood and urine sample sent to lab.
[2020-07-21 17:30] LABS: APPEARANCE,URINE CLEAR; BILIRUBIN, URINE NEGATIVE (NEGATIVE); COLOR,URINE YELLOW; GLUCOSE, URINE (UA) NEGATIVE (NEGATIVE); KETONES,URINE 1+ (NEGATIVE); LEUKOCYTE ESTERASE ,URINE NEGATIVE (NEGATIVE); NITRITE,URINE NEGATIVE (NEGATIVE); PH,URINE 5 (4.5-8.0); PROTEIN,URINE 2+ (NEGATIVE); UROBILINOGEN,URINE NORMAL MG/DL (0.0-1.0)
[2020-07-21] MEDS ORDERED: DiphenhydrAMINE 50mg/ml Inj IVP ONE (17:30)
[2020-07-21] MEDS ORDERED: Morphine Sulfate 4mg/ml Inj (IV USE ONLY) IVP ONE (17:30)
[2020-07-21] MEDS ORDERED: Metoclopramide 10mg/2ml Inj IVP ONE (17:30)
[2020-07-21 17:32] LABS: BASOPHILS % (AUTO) 1.8 % (0.0-2.0); EOSINOPHILS % (AUTO) 0.9 % (0.0-3.0); HEMATOCRIT 34.4 % (42.0-52.0); HEMOGLOBIN 9.5 G/DL (14.2-18.0); LYMPHOCYTES % (AUTO) 36.1 % (20.0-45.0); MEAN CORPUSCULAR VOLUME 86 FL (80-99); MONOCYTES % (AUTO) 6.7 % (1.0-10.0); NEUTROPHILS % (AUTO) 54.5 % (45.0-75.0); PLATELET COUNT 293 K/UL (150-450); RED CELL DISTRIBUTION WIDTH 22.7 % (11.6-14.8); WHITE BLOOD COUNT 7.3 K/UL (4.8-10.8)
[2020-07-21 17:48] LABS: ANION GAP 12 mmol/L (5-15); BLOOD UREA NITROGEN 17 mg/dL (7-18); CALCIUM 8.4 MG/DL (8.5-10.1); CARBON DIOXIDE 24 MMOL/L (21-32); CHLORIDE 104 MMOL/L (98-107); CREATININE 1.3 MG/DL (0.55-1.30); SODIUM 140 MMOL/L (136-145)
[2020-07-21 17:52] LABS: ALANINE AMINOTRANSFERASE 86 U/L (12-78); ALBUMIN 3.6 G/DL (3.4-5.0); ALBUMIN/GLOBULIN RATIO 1.1 (1.0-2.7); ALKALINE PHOSPHATASE 114 U/L (46-116); ASPARTATE AMINO TRANSFERASE 80 U/L (15-37); BILIRUBIN,TOTAL 0.4 MG/DL (0.2-1.0)
[2020-07-21 18:04] VITALS: BP 134/78
--- NOTE | 2020-07-21 18:09 | NUR ---
ED Nurse Note:pt resting with eyes closed in no noted distress, will continue to monitor.
[2020-07-21] MEDS ORDERED: PHENERGAN SUPP25 MG RECTAL (18:30)
[2020-07-21] MEDS ORDERED: GNP THERAPEUTI1 EACH PO (18:30)
[2020-07-21] MEDS ORDERED: PHENERGAN25 M1 ORAL (18:30)
[2020-07-21] MEDS ORDERED: FAMOTIDINE20 MG ORAL (18:30)
[2020-07-21 18:44] VITALS: BP 127/81
--- NOTE | 2020-07-21 18:46 | NUR ---
ED Nurse Note: Pt cleared by health care Provider for discharge. DC instructions/prescription was given and explained to pt and verbalized understanding of teachings. All medical deviecs such as ID band removed. Pt is AAO x4, ambulatory and left with all personal belongings.
[2020-07-22] MEDS ORDERED: HYDROCODON-ACE1 EA16 ORAL (02:17)
== END 2020-07-21 18:46 | disposition home or self-care (01) ==
LOC: EMR 17:24
DX: R10.13 Epigastric pain (principal); D64.9 Anemia, unspecified; J45.909 Unspecified asthma, uncomplicated; F17.200 Nicotine dependence, unspecified, uncomplicated; F19.90 Other psychoactive substance use, unspecified, uncomplicated; Z72.89 Other problems related to lifestyle; Z88.6 Allergy status to analgesic agent; Z88.0 Allergy status to penicillin; Z91.018 Allergy to other foods
CPT/HCPCS: 36415; 80053; 81003; 83690; 85025; 96361; 96374; 96375; J1200; J2270; J2765; S0028; Z7502; 99284

== ENCOUNTER 2020-07-22 00:02 | Emergency (ER) | payer MEDICAID ==
[~2020-07-22] VITALS: Ht 165.1 cm; Wt 68.0 kg
[~2020-07-22 00:02] MED LIST changes: +GNP THERAPEUTI1 EACH PO; +PHENERGAN SUPP25 MG RECTAL; +PHENERGAN25 M1 ORAL
[2020-07-22] MEDS ORDERED: Mylanta II UD 30ml ORAL ONE (00:15)
[2020-07-22] MEDS ORDERED: Haloperidol 5mg/ml Inj IM ONE (00:15)
[2020-07-22] MEDS ORDERED: Dicyclomine HCl 10mg/5ml oral soln ORAL ONE (00:15)
[2020-07-22] MEDS ORDERED: Lidocaine 2% Visc 15ml soln ORAL ONE (00:15)
--- NOTE | 2020-07-22 00:21 | NUR ---
ED Nurse Note: Pt ambulated into ED, c/o continued epigastric pain that has gotten worse since he was seen in this ED several hours ago. Pt reports he was unable to fill prescriptions yet, because the pharmacy was closed. Pt AAO x4.
--- NOTE | 2020-07-22 00:25 | NUR ---
ED Nurse Note: Dr. Christian in to see pt, pt advised to give urine sample when able. IV started in right A/C, blood sent to lab. Pt tolerated procedure well.
[2020-07-22 00:39] LABS: EOSINOPHILS % (AUTO) 1.4 % (0.0-3.0); HEMATOCRIT 28.6 % (42.0-52.0); HEMOGLOBIN 8.8 G/DL (14.2-18.0); LYMPHOCYTES % (AUTO) 23.1 % (20.0-45.0); MEAN CORPUSCULAR VOLUME 83 FL (80-99); NEUTROPHILS % (AUTO) 65.4 % (45.0-75.0); PLATELET COUNT 255 K/UL (150-450); RED BLOOD COUNT 3.43 M/UL (4.70-6.10); RED CELL DISTRIBUTION WIDTH 21.8 % (11.6-14.8); WHITE BLOOD COUNT 10.2 K/UL (4.8-10.8)
[2020-07-22] MEDS ORDERED: Omnipaque-300 100ml vial INJ PRN (01:00)
[2020-07-22] MEDS ORDERED: Morphine Sulfate 4mg/ml Inj (IV USE ONLY) IVP ONE (01:00)
--- NOTE | 2020-07-22 01:10 | NUR ---
ED Nurse Note: Pt c/o continued pain, new med order pending.
[2020-07-22 01:11] LABS: ANION GAP 12 mmol/L (5-15); BLOOD UREA NITROGEN 16 mg/dL (7-18); CARBON DIOXIDE 21 MMOL/L (21-32); CHLORIDE 106 MMOL/L (98-107); CREATININE 1.3 MG/DL (0.55-1.30); POTASSIUM 3.7 MMOL/L (3.5-5.1); SODIUM 139 MMOL/L (136-145)
[2020-07-22 01:16] VITALS: BP 177/93
[2020-07-22 01:16] LABS: ALANINE AMINOTRANSFERASE 72 U/L (12-78); ALBUMIN 3.2 G/DL (3.4-5.0); ALBUMIN/GLOBULIN RATIO 1.1 (1.0-2.7); ALKALINE PHOSPHATASE 103 U/L (46-116); ASPARTATE AMINO TRANSFERASE 59 U/L (15-37); BILIRUBIN,TOTAL 0.5 MG/DL (0.2-1.0)
--- NOTE | 2020-07-22 02:03 | Diagnostic Imaging Report ---
EXAM: CT Abdomen and Pelvis With Intravenous Contrast CLINICAL HISTORY: PAIN TECHNIQUE: Axial computed tomography images of the abdomen and pelvis with intravenous contrast. CTDI is 3.7 mGy and DLP is 183.5 mGy-cm. One or more of the following dose reduction techniques were used: automated exposure control, adjustment of the mA and/or kV according to patient size, use of iterative reconstruction technique. COMPARISON: 03/15/20 FINDINGS: Lung bases: No significant abnormality. ABDOMEN: Liver: No significant abnormality. Gallbladder and bile ducts: No significant abnormality. No calcified stones. Pancreas: Peripancreatic edema. No pancreatic ductal dilatation. No loculated fluid collection. Spleen: No significant abnormality. Adrenals: No significant abnormality. Kidneys and ureters: No significant abnormality. No hydronephrosis. Stomach and bowel: No significant abnormality. Bowel is nondilated. PELVIS: Appendix: No findings to suggest acute appendicitis. Bladder: No significant abnormality. Reproductive: Unremarkable as visualized. ABDOMEN and PELVIS: Intraperitoneal space: Trace pelvic free fluid. No free air. Bones/joints: No acute fracture or malalignment. Soft tissues: No significant abnormality. Vasculature: No significant abnormality. No abdominal aortic aneurysm. Lymph nodes: No significant abnormality. IMPRESSION: 1. Peripancreatic edema is concerning for acute pancreatitis. No loculated fluid collection or soft tissue gas. 2. Trace pelvic free fluid. No free air.
[2020-07-22] MEDS ORDERED: HYDROCODON-ACE1 EA16 ORAL (02:17)
--- NOTE | 2020-07-22 02:23 | Emergency Room Report ---
History of Present Illness General Chief Complaint: Abdominal Pain Source: Patient Present Illness HPI 30-year-old male here with epigastric abdominal pain. Patient was seen here earlier today and had unremarkable labs and was given antiemetics and pain medication and was discharged. Patient has a history of recurrent pancreatitis. Says that he went home and the pain persisted and so he decided to come back. Says "this feels different from my pancreatitis. It is worse." Says pain is sharp in nature, located epigastric region, does not otherwise radiate. No fevers, chills, chest pain, palpitations, shortness of breath, back pain, diarrhea, dysuria. Has vomited 1 time nonbilious nonbloody. 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: No Nursing Documentation-PM Past Medical History: No History, Except For Hx Cardiac Problems: No Hx Asthma: Yes Hx Cancer: No Hx Gastrointestinal Problems: Yes - pancreatitis, IBS Hx Neurological Problems: No Review of Systems All Other Systems: negative except mentioned in HPI Physical Exam Vital Signs Date Time Temp Pulse Resp B/P (MAP) Pulse Ox O2 Delivery O2 Flow Rate FiO2 07/22/20 00:05 98.1 52 20 183/93 (123) 100 Room Air 07/22/20 00:43 99 Sp02 EP Interpretation: reviewed, normal General Appearance: no apparent distress, alert, GCS 15, non-toxic Head: normocephalic, atraumatic Eyes: bilateral eye normal inspection, bilateral eye PERRL ENT: hearing grossly normal, normal pharynx, no angioedema, normal voice Neck: full range of motion, supple/symm/no masses Respiratory: chest non-tender, lungs clear, normal breath sounds, speaking full sentences Cardiovascular #1: regular rate, rhythm, no edema Cardiovascular #2: 2+ carotid (R), 2+ carotid (L), 2+ radial (R), 2+ radial (L), 2+ dorsalis pedis (R), 2+ dorsalis pedis (L) Gastrointestinal: normal bowel sounds, non tender, soft, non-distended, no guarding, no rebound, other - Epigastric tenderness on palpation. No rebound or guarding. No distention Rectal: deferred Genitourinary: normal inspection, no CVA tenderness Musculoskeletal: back normal, normal range of motion, calf tenderness, gait/station normal, non-tender Neurologic: alert, motor strength/tone normal, oriented x3, sensory intact, responsive, speech normal Psychiatric: judgement/insight normal, memory normal, mood/affect normal, no suicidal/homicidal ideation Reflexes: 3+ bicep (R), 3+ bicep (L), 3+ tricep (R), 3+ tricep (L), 3+ knee (R), 3+ knee (L) Lymphatic: no adenopathy Medical Decision Making Diagnostic Impression: Primary Impression: Pancreatitis ER Course Laboratory Tests Test 07/22/20 00:30 White Blood Count 10.2 K/UL (4.8-10.8) Red Blood Count 3.43 M/UL (4.70-6.10) L Hemoglobin 8.8 G/DL (14.2-18.0) L Hematocrit 28.6 % (42.0-52.0) L Mean Corpuscular Volume 83 FL (80-99) Mean Corpuscular Hemoglobin 25.5 PG (27.0-31.0) L Mean Corpuscular Hemoglobin Concent 30.6 G/DL (32.0-36.0) L Red Cell Distribution Width 21.8 % (11.6-14.8) H Platelet Count 255 K/UL (150-450) Mean Platelet Volume 7.9 FL (6.5-10.1) Neutrophils (%) (Auto) 65.4 % (45.0-75.0) Lymphocytes (%) (Auto) 23.1 % (20.0-45.0) Monocytes (%) (Auto) 9.0 % (1.0-10.0) Eosinophils (%) (Auto) 1.4 % (0.0-3.0) Basophils (%) (Auto) 1.0 % (0.0-2.0) Sodium Level 139 MMOL/L (136-145) Potassium Level 3.7 MMOL/L (3.5-5.1) Chloride Level 106 MMOL/L (98-107) Carbon Dioxide Level 21 MMOL/L (21-32) Anion Gap 12 mmol/L (5-15) Blood Urea Nitrogen 16 mg/dL (7-18) Creatinine 1.3 MG/DL (0.55-1.30) Estimated Glomerular Filtration Rate > 60 mL/min (>60) Glucose Level 116 MG/DL (74-106) H Calcium Level 8.0 MG/DL (8.5-10.1) L Total Bilirubin 0.5 MG/DL (0.2-1.0) Aspartate Amino Transferase (AST) 59 U/L (15-37) H Alanine Aminotransferase (ALT) 72 U/L (12-78) Alkaline Phosphatase 103 U/L (46-116) Total Protein 6.2 G/DL (6.4-8.2) L Albumin 3.2 G/DL (3.4-5.0) L Globulin 3.0 g/dL Albumin/Globulin Ratio 1.1 (1.0-2.7) Lipase 384 U/L (73-393) Serum Alcohol < 3 mg/dL CT abdomen pelvis: Peripancreatic edema is concerning for acute pancreatitis. No loculated fluid collection or soft tissue gas 30-year-old male with history of recurrent pancreatitis here with epigastric abdominal pain. Patient normal lipase and otherwise normal vital signs and lab results in the emergency department. Says that he has been smoking a large amou nt of THC. He was given Haldol and morphine with good resolution of his symptoms. CT revealed evidence of acute pancreatitis. Patient was tolerating p.o. in the emergency department. He had already been given prescription for multiple antiemetics. Given prescription for [place] and told to return only if he is unable to tolerate p.o. intake. He expressed understanding and was d ischarged. Last Vital Signs Date Time Temp Pulse Resp B/P (MAP) Pulse Ox O2 Delivery O2 Flow Rate FiO2 07/22/20 01:16 98.1 59 20 177/93 100 Room Air 99 Disposition: HOME, SELF-CARE Condition: Stable Scripts Hydrocodone/Acetaminophen 7.5-325* (HYDROCODON-ACETAMINOPH 7.5-325*) 1 Each Tablet 1 TAB ORAL Q4H, #10 TAB 0 Refills Prov: Reinier Christian M.D. 07/22/20 Referrals: [facility] Patient Instructions: Abdominal Pain, Adult Reinier Christian M.D. Jul 22, 2020 02:23
[2020-07-22 03:02] VITALS: BP 176/92
--- NOTE | 2020-07-22 03:07 | NUR ---
ED Nurse Note: Pt cleared by health care Provider for discharge. D/C instructions/prescription was given and explained to pt and pt verbalized understanding of teachings. All medical devices such as IV and ID band removed. Pt is AAO x4, ambulatory and left with all personal belongings.
[2020-07-22] MEDS ORDERED: HYDROcodone/Acetamin 5/325 tab ORAL ONE (03:15)
[2020-07-22 03:18] VITALS: BP 176/92
== END 2020-07-22 03:22 | disposition home or self-care (01) ==
LOC: EMR 00:14
DX: K85.90 Acute pancreatitis without necrosis or infection, unspecified (principal); J45.909 Unspecified asthma, uncomplicated; Z88.6 Allergy status to analgesic agent; Z88.0 Allergy status to penicillin; Z91.018 Allergy to other foods
CPT/HCPCS: 36415; 74177; 80053; 83690; 85025; 93005; 96372; 96374; G0480; J1630; J2270; Q9965; Z7502; 99284